=== PATIENT | female | born 1955 | race Caucasian/White ===

== ENCOUNTER 2016-10-02 16:53 | Emergency (ER) | payer OTHER ==
[2016-10-02] MEDS ORDERED: HYDROmorphone 1 MG/ML 1 ML SYRINGE IM STA ×2 (17:11→18:13)
--- NOTE | 2016-10-02 17:34 | ED ---
Fall HPI - General Chief Complaint: Fall Stated Complaint: Fall-Shoulder Pain Time Seen by Provider: 10/02/16 17:02 Source: patient, RN notes reviewed, old records reviewed Mode of arrival: ambulatory - History of Present Illness Initial Comments: Physical 61-year-old female presenting to the emergency Department chief complaint of right shoulder pain. Patient reports that she was walking through her [place] and tripped. She reports that she landed with her right arm outstretched above her head. Patient reports she felt a pop. Patient reports that since then she has not been able to flex or extend her shoulder. She is right-handed. She denies any elbow pain. She denies any wrist or hand pain. She states that she has normal sensation in her fingertips. Patient denies any previous shoulder injuries or fractures. - Related Data Home Medications Medication Instructions Recorded Confirmed Aspirin 325 mg PO DAILY 10/02/16 10/02/16 Cholecalciferol (Vitamin D3) 2,000 unit PO DAILY 10/02/16 10/02/16 [Vitamin D3] Clopidogrel Bisulfate [Plavix] 75 mg PO DAILY 10/02/16 10/02/16 Hydrochlorothiazide 25 mg PO DAILY 10/02/16 10/02/16 INSULIN LISPRO (HumaLOG) [HumaLOG] See Protocol SQ TID 10/02/16 10/02/16 Insulin Glargine [Lantus] 17 - 20 unit SQ HS 10/02/16 10/02/16 Levothyroxine Sodium [Synthroid] 112 mcg PO DAILY 10/02/16 10/02/16 Losartan Potassium [Cozaar] 50 mg PO DAILY 10/02/16 10/02/16 Previous Rx's Medication Instructions Recorded HYDROcodone/APAP 10-325MG [[place] 1 tab PO Q6H PRN #15 tab 10/02/16 10-325] Ondansetron Odt [Zofran Odt] 4 mg PO Q8HR PRN #12 tab 10/02/16 Allergies Allergy/AdvReac Type Severity Reaction Status Date / Time codeine Allergy Swelling Verified 10/02/16 17:44 Review of Systems ROS Statement: Those systems with pertinent positive or pertinent negative responses have been documented in the HPI. ROS Other: All systems not noted in ROS Statement are negative. Past Medical History Past Medical History: Coronary Artery Disease (CAD), Diabetes Mellitus History of Any Multi-Drug Resistant Organisms: None Reported Past Surgical History: Heart Catheterization With Stent Additional Past Surgical History / Comment(s): fatty tumors removed x 2 Past Psychological History: No Psychological Hx Reported Smoking Status: Never smoker Past Alcohol Use History: Occasional Past Drug Use History: None Reported General Exam - General Exam Comments Initial Comments: Well, Since 61-year-old female. No distress. Limitations: no limitations General appearance: alert, in no apparent distress Head exam: Present: atraumatic, normocephalic, normal inspection Eye exam: Present: normal appearance, PERRL, EOMI. Absent: scleral icterus, conjunctival injection, periorbital swelling ENT exam: Present: normal exam, mucous membranes moist Neck exam: Present: normal inspection. Absent: tenderness, meningismus, lymphadenopathy Respiratory exam: Present: normal lung sounds bilaterally. Absent: respiratory distress, wheezes, rales, rhonchi, stridor Cardiovascular Exam: Present: regular rate, normal rhythm, normal heart sounds. Absent: systolic murmur, diastolic murmur, rubs, gallop, clicks GI/Abdominal exam: Present: soft, normal bowel sounds. Absent: distended, tenderness, guarding, rebound, rigid Extremities exam: Present: normal inspection, full ROM, normal capillary refill. Absent: tenderness, pedal edema, joint swelling, calf tenderness Right Shoulder Exam: Present: tenderness, swelling. Absent: normal inspection ( Patient has swelling over the lateral aspect of the possible humerus.), full ROM (Patient has limited shoulder range of motion.), abrasion Upper Arm exam: Absent: normal inspection, full ROM (Patient has decreased flexion and extension. Patient's arm is in a sling.) Elbow exam: Present: normal inspection, full ROM Forearm Wrist exam: Present: normal inspection, full ROM Hand Wrist exam: Present: normal inspection, full ROM Neuro motor exam: Present: wrist extension intact, thumb opposition intact, thumb IP flexion intact, thumb adduction intact, fingers 2-5 abduction intact Neurosensory exam: Present: 2-point discrimination, radial nerve intact, ulnar nerve intact, median nerve intact Vascular: Present: normal capillary refill Back exam: Present: normal inspection Neurological exam: Present: alert, oriented X3, CN II-XII intact Psychiatric exam: Present: normal affect, normal mood Skin exam: Present: warm, dry, intact, normal color. Absent: rash Course Vital Signs 10/02/16 16:54 Temperature 97.6 F Pulse Rate 99 Respiratory 22 Rate Blood Pressure 171/82 O2 Sat by Pulse 100 Oximetry Medical Decision Making - Medical Decision Making Physical 61-year-old female presenting to the emergency Department chief complaint of right shoulder pain. Patient reports that she was walking through her [place] and tripped. She reports that she landed with her right arm outstretched above her head. Patient reports she felt a pop. Patient reports that since then she has not been able to flex or extend her shoulder. Patient' s x-ray shows evidence of a comminuted proximal humerus fracture. No evidence of dislocation. Patient does have full range of motion of the elbow and fingers and hands. Normal sensation and good capillary refill. Patient was placed in a sling. Discussed that she needs to follow-up tomorrow [facility], Dr. Sanchez. Patient will be discharged with pain medication. Discussed keeping her arm propped up on a pillow and taking Motrin and Tylenol as well for pain. Discussed apply ice over the area as well. Patient agrees to treatment plan will comply. Return parameters were discussed. - Radiology Data Radiology results: report reviewed Comminuted humeral neck fracture. No significant displacement. There is a large 3 x 2 cm chip fracture of the greater tuberosity. Scapula appears intact. There is no dislocation. Disposition Clinical Impression: Comminuted right humeral fracture Disposition: HOME SELF-CARE Condition: Good Instructions: Arm Fracture in Adults (ED), Proximal Humerus Fracture (ED) Additional Instructions: Patient advised to follow-up with orthopedic physician tomorrow. Patient advised to keep arm resting on pillows. Sleep with a recliner chair and propped up on pillows. Take pain medication as prescribed. Apply ice over the area as well. Return to the emergency department if any alarming signs or symptoms occur. Prescriptions: HYDROcodone/APAP 10-325MG [[place] 10-325] 1 tab PO Q6H PRN #15 tab PRN Reason: Pain Ondansetron Odt [Zofran Odt] 4 mg PO Q8HR PRN #12 tab PRN Reason: Nausea Referrals: Vamsi Jo DO [Primary Care Provider] - 1-2 days Minh Sanchez MD [Medical Doctor] - 1-2 days Time of Disposition: 18:17
--- NOTE | 2016-10-02 18:05 | XR ---
EXAMINATION TYPE: XR shoulder complete RT DATE OF EXAM: 10/02/2016 COMPARISON: NONE HISTORY: Pain after a fall TECHNIQUE: 3 views FINDINGS: There is a comminuted fracture of the neck of the right humerus. There is no dislocation. T here is a large 3 x 2 cm Chip fracture of the greater tuberosity. Scapula appears intact. IMPRESSION: Comminuted humeral neck fracture. No significant displacement.
[2016-10-02 18:46] VITALS: BP 123/60; PULSE 86; RESP 18; TEMP 97.1
== END 2016-10-02 18:47 | disposition home or self-care (01) ==
LOC: EC 16:53
DX: S42.211A Unspecified displaced fracture of surgical neck of right humerus, initial encounter for closed fracture (principal); E11.9 Type 2 diabetes mellitus without complications; I25.10 Atherosclerotic heart disease of native coronary artery without angina pectoris; Z79.02 Long term (current) use of antithrombotics/antiplatelets; Z79.4 Long term (current) use of insulin; Z79.899 Other long term (current) drug therapy; Z79.82 Long term (current) use of aspirin; Z88.5 Allergy status to narcotic agent; Z95.5 Presence of coronary angioplasty implant and graft; W01.0XXA Fall on same level from slipping, tripping and stumbling without subsequent striking against object, initial encounter; Y93.01 Activity, walking, marching and hiking
CPT/HCPCS: 73030; 99284; 96372 ×2; J1170

== ENCOUNTER → 2017-10-18 | Outpatient (CLI) | payer OTHER ==
--- NOTE | 2017-10-19 16:45 | MR ---
EXAMINATION TYPE: MR knee RT wo con DATE OF EXAM: 10/18/2017 COMPARISON: None HISTORY: Outer right knee pain for one month. Twisting injury after fall. TECHNIQUE: Multiplanar, multisequence imaging of the right knee is performed without IV contrast. FINDINGS: MEDIAL MENISCUS: There is abnormal signal within the posterior horn of the left meniscus without exte nt into the intra-articular surface most compatible with myxoid degeneration of the meniscus. LATERAL MENISCUS: Anterior and posterior horns are intact without tear. CRUCIATE LIGAMENTS: The anterior and posterior cruciate ligaments are intact and unremarkable. COLLATERAL LIGAMENTS: The medial collateral ligament and lateral collateral ligament complex are inta ct and unremarkable. EXTENSOR MECHANISM: Visualized quadriceps and patellar tendons are intact. EFFUSION: There is a small complex suprapatellar joint effusion compatible with synovitis. No fat fl uid level is seen to suggest lipohemarthrosis. POPLITEAL CYST: Trace fluid between the medial head of the gastrocnemius and semimembranosus. TRICOMPARTMENT SPACES: No significant joint space narrowing. Small marginal osteophytes are seen of t he medial and lateral compartments. CARTILAGE: There is a partial thickness cartilaginous defect of the medial surface of the lateral fem oral condyle measuring 8 mm. No focal full-thickness or partial-thickness chondral defect is seen wit hin the medial compartment are within the patellofemoral compartment, however there is signal heterog eneity of the lateral facet of the patella. BONE MARROW SIGNAL: There is focal PD hyperintense and T1 hypointense bone marrow edema of the hot mill worker ior lateral tibial plateau without associated focal fracture line or subchondral collapse. Fluid is n oted deep to the anterior aspect of the medial meniscus but elongated along the tibial plateau. This is presumed to represent some of the joint effusion. Probable small extraosseous ganglion is noted of the medial femoral condyle anteriorly. OTHER: There is a mixed intensity 1.9 x 2.3 x 1.4 cm fluid collection at the lateral aspect of the p opliteus muscle likely representing an intramuscular hematoma. Fluid is seen surrounding this with in tramuscular high signal from muscular strain. IMPRESSION: 1. Abnormal bone marrow signal within the posterior lateral tibial plateau indicative of a large area of bone marrow edema without subchondral fracture identified or subchondral collapse. No hemarthrosi s is seen although there is a slightly complex small suprapatellar joint effusion with synovitis. 2. 2.3 cm complex fluid collection at the lateral aspect of the popliteus muscle likely representing an intramuscular hematoma with intramuscular popliteal strain. 3. No meniscal tear is identified however there is fluid seen deep to the medial meniscus. If there i s focal pain or concern for occult nondisplaced tear and arthroscopy could be performed.
== END | disposition home or self-care (01) ==
LOC: RADMRIMAIN 08:47
PROVIDERS: ATTEND Orthopaedic Surgery
DX: M25.461 Effusion, right knee (principal); M65.861 Other synovitis and tenosynovitis, right lower leg

== ENCOUNTER → 2018-10-19 | Outpatient (CLI) | payer OTHER ==
[2018-10-19 16:09] LABS: Albumin 4.4 g/dL (3.80-4.90); Albumin/Globulin Ratio 2.1 (1.60-3.17); Bilirubin, Conjugated 0.3 mg/dL (0.20-0.40); Bilirubin,Unconjugated 0.6 mg/dL; Globulin 2.1 g/dL (1.6-3.3); LDL Cholesterol,Calculated 76.8 mg/dL (0.0-131.0); Total Bilirubin 0.9 mg/dL (0.2-1.2); Total Protein 6.5 g/dL (6.2-8.2); VLDL Calculation 11.2 mg/dL (5.00-40.00)
== END | disposition home or self-care (01) ==
LOC: LABWHC1 11:10
PROVIDERS: ATTEND Internal Medicine Cardiovascular Disease
DX: I25.10 Atherosclerotic heart disease of native coronary artery without angina pectoris (principal)
CPT/HCPCS: 36415; 80061; 80076

== ENCOUNTER → 2021-12-06 | Outpatient (CLI) | payer MEDICARE ==
[2021-12-06 12:15] LABS: INR 0.9 (<1.2); Partial Thromboplastin Time 23.6 sec (22.0-30.0); Prothrombin Time 9.7 sec (9.0-12.0)
[2021-12-06 18:20] LABS: Basophils # (A) 0.03 X 10*3/uL (0.00-0.10); Basophils % (A) 0.5 %; Eosinophils # (A) 0.09 X 10*3/uL (0.04-0.35); Eosinophils % (A) 1.5 %; HCT 38.1 % (37.2-46.3); HGB 12.3 g/dL (12.0-15.0); Immature Grans, Automated 0.8 %; Lymphocytes # (A) 1.17 X 10*3/uL (0.90-5.00); Lymphocytes % (A) 19.6 %; MCH 29.7 pg (27.0-32.0); MCHC 32.3 g/dL (32.0-37.0); Mean Platelet Volume 12.2 fL (9.5-12.2); Monocytes # (A) 0.39 X 10*3/uL (0.20-1.00); Monocytes % (A) 6.5 %; NRBC Per 100 WBC 0 /100 WBCS (0.0-0.0); Neutrophils # (A) 4.25 X 10*3/uL (1.80-7.70); Neutrophils % (A) 71.1 %; Platelet Count 244 X 10*3/uL (140-440); RBC 4.14 X 10*6/uL (4.10-5.20); RDW 12.7 % (11.5-14.5); WBC 5.98 X 10*3/uL (4.50-10.00)
[2021-12-06 18:55] LABS: Albumin 4.7 g/dL (3.8-4.9); Albumin/Globulin Ratio 1.81 (1.60-3.17); Anion Gap 11.6 mmol/L (10.00-18.00); BUN/Creat Ratio 32.9 Ratio (12.00-20.00); Blood Urea Nitrogen 32.9 mg/dL (9.0-27.0); Calcium 10.1 mg/dL (8.7-10.3); Carbon Dioxide 26.4 mmol/L (20.0-27.5); Globulin 2.6 g/dL (1.6-3.3); Non-African American GFR(CKD) 58.7 (60.0-200.0); Potassium 4.8 mmol/L (3.5-5.5); Total Bilirubin 0.4 mg/dL (0.30-1.20); Total Protein 7.3 g/dL (6.2-8.2)
[2021-12-06 19:16] LABS: Appearance,Urine Clear (Clear); Bilirubin,Urine Negative (Negative); Blood,Urine Negative (Negative); Color,Urine Yellow (Yellow); Ketones,Urine Negative (Negative); Nitrite,Urine Negative (Negative); PH, Urine 5.5 (5.0-8.0); Specific Gravity,Urine 1.023 (1.001-1.030)
[2021-12-06 19:26] LABS: Bacteria,Urine None Seen /HPF (None Seen)
== END | disposition home or self-care (01) ==
LOC: LABPAT 10:41
PROVIDERS: ATTEND Orthopaedic Surgery
DX: Z01.812 Encounter for preprocedural laboratory examination (principal); M16.12 Unilateral primary osteoarthritis, left hip
CPT/HCPCS: 80053; 81001; 85025; 85610; 85730; 87070

== ENCOUNTER 2021-12-17 08:37 | Inpatient (IN) | payer MEDICARE, OTHER ==
[2021-12-15 15:40] VITALS: BMI 27.9
[~2021-12-17 08:37] MED LIST: ACETAMINOPHEN TAB 500 MG TAB PO PRN; DEXAMETHASONE SOD PHOSPHATE 10 MG/ML 1 ML VIAL IV PRN; DOCUSATE 100 MG CAP PO PRN; FAMOTIDINE 20 MG/2 ML VIAL IVP PRN; KETOROLAC 15 MG/ML 1 ML VIAL IVP PRN; MIDAZOLAM 2 MG/2 ML VIAL IV PRN; ONDANSETRON 4 MG/2 ML VIAL IVP PRN; ROPIVACAINE/EPI/CLONIDINE/KET 50 ML SYRINGE MISCELLANE PRN; TRANEXAMIC ACID IN NACL,ISO-OS 1,000 MG in SALINE 1 100ML.BAG IVPB PRN; oxyCODONE ER 10 MG TAB.ER.12H PO PRN
[2021-12-17] MEDS: LACTATED RINGERS 1,000 ML IV SCH (09:20)
[2021-12-17 09:48] LABS: Glucose,Whole Blood 370 mg/dL (70-110)
[2021-12-17] MEDS ORDERED: INSULIN ASPART (NovoLOG) 100 UNIT/ML VIAL SQ ONE ×2 (09:55→13:50)
[2021-12-17] MEDS ORDERED: fentaNYL (PF) 50 MCG/ML 2 ML AMP IVP ONE (09:56)
[2021-12-17] MEDS ORDERED: MIDAZOLAM 2 MG/2 ML VIAL IVP ONE ×3 (09:56→15:16)
[2021-12-17] MEDS ORDERED: fentaNYL (PF) 50 MCG/ML 2 ML AMP ONE ×2 (10:43→15:59)
[2021-12-17] MEDS ORDERED: ROCURONIUM 10 MG/ML (5 ML VIAL) IV ONE (10:43)
[2021-12-17] MEDS ORDERED: MIDAZOLAM 2 MG/2 ML VIAL ONE (10:43)
[2021-12-17] MEDS ORDERED: SUCCINYLCHOLINE CHLORIDE 200 MG/10 ML VIAL IV ONE (10:43)
[2021-12-17] MEDS ORDERED: LIDOCAINE 2% INJ 20 MG/ML (2 ML VIAL) ONE (10:43)
[2021-12-17] MEDS ORDERED: ePHEDrine 50 MG/ML 1 ML VIAL ONE (10:43)
[2021-12-17] MEDS ORDERED: TRANEXAMIC ACID IN NACL,ISO-OS 1,000 MG/100 ML BAG ONE (10:43)
[2021-12-17] MEDS ORDERED: NEOSTIGMINE 1 MG/ML 10 ML VIAL ONE (10:43)
[2021-12-17] MEDS ORDERED: PROPOFOL 10 MG/ML 20 ML VIAL IV ONE (10:43)
[2021-12-17] MEDS ORDERED: GLYCOPYRROLATE 0.2 MG/ML 2 ML VIAL ONE (10:43)
--- NOTE | 2021-12-17 11:16 | P.ANPRN ---
Procedure Note - Anesthesia - Nerve Block Performed Left Erector Spinae Single Time Out Performed: Yes ([id number]) Date of Procedure: 12/17/21 Procedure Start Time: 09:56 Procedure Stop Time: 10:02 Location of Patient: PreOp Indication: Acute Post-Operative Pain, Requested by Surgeon Specifically requested for management of pain by DrJosselin: Minh Sanchez Sedation Type: Sedate with meaningful contact maintained Preparation: Sterile Prep Position: Supine Catheter: None Needle Types: Pajunk Needle Gauge: 21 Ultrasound used to visualize needle placement: Yes Ultrasound used to observe medication spread: Yes Injectate: 0.5% Ropivacaine (see comment for volume) (30cc) Blood Aspirated: No Pain Paresthesia on Injection Noted: No Resistance on Injection: Normal Image Stored and Saved: Yes Events: Uneventful and Well Tolerated
[2021-12-17] MEDS ORDERED: SODIUM CHLORIDE 0.9% 200 ML with EPINEPHrine 2 MG IV ONE ×2 (11:49)
[2021-12-17] MEDS ORDERED: LACTATED RINGERS 1,000 ML IV ONE (11:59)
[2021-12-17 12:23] LABS: Glucose,Whole Blood 278 mg/dL (70-110)
[2021-12-17] MEDS ORDERED: hydrOXYzine pamoate 25 MG CAP PO PRN (13:30)
[2021-12-17] MEDS ORDERED: HYDROmorphone 0.5 MG/0.5 ML SYRINGE IVP PRN ×2 (13:30)
[2021-12-17] MEDS ORDERED: NALOXONE 0.4 MG/ML 1 ML VIAL IV PRN (13:30)
[2021-12-17] MEDS ORDERED: diphenhydrAMINE 50 MG/ML 1 ML VIAL IVP ONE (13:35)
--- NOTE | 2021-12-17 13:41 | P.OP ---
Date of Procedure: 12/17/21 Preoperative Diagnosis: 1. 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 Osteoporosis with prior fragility fracture 3. Osteopenia in the left proximal femur with a JEANNE C canal Postoperative Diagnosis: Same Procedure(s) Performed: Left direct anterior total hip arthroplasty Implants: 1. Hugo Trident II Acetabular Cup, Size #46 2. Ord Accolade C Size # 5 Femoral Stem, High Offset 3. Dual Mobility OD 36mm, 22.2ID mm, +0 neck Anesthesia: MOISE Surgeon: Minh Sanchez Media Theorist And Author Of #1: Krystal Cole Estimated Blood Loss (ml): 100 IV fluids (ml): 1,100 Pathology: none sent Condition: stable Disposition: PACU Indications for Procedure: The patient is a very pleasant 66-year-old female who developed relatively acute onset left hip and groin pain. She had x-rays and an MRI which showed a subchondral fracture with collapse of the femoral head. She had incapacitating hip pain and an inability to ambulate I recommended a total hip arthroplasty. The patient had a prior proximal humerus fragility fracture and had significant osteopenia on her plain films that I recommended using cemented femoral fixation to lower her risk of postoperative fracture. I had a long discussion with the patient in the office on the potential risks and complications of an elective total hip replacement through a direct anterior approach. Risks discussed include, but are certainly not limited to, risks from anesthesia, superficial infection requiring local wound care or antibiotics, deep chasidy-prosthetic joint infection and the treatment required to eradicate infection, intraoperative fracture, postoperative periprosthetic fracture, damage to local blood vessels or nerves particularly the lateral femoral cutaneous nerve, delayed wound healing requiring local wound care or possibly surgical debridement, hip dislocation, leg length discrepancy, soft tissue irritation around the total hip implant such as iliopsoas tendinitis or trochanteric bursitis, wear and osteolysis from the implants, squeaking or audible noises, groin pain, thigh pain, heterotopic ossification, stiffness, aseptic loosening of the implants, dissatisfaction with surgical outcome, need for revision surgery, DVT, PE, swelling of the operative extremity, acute coronary event, stroke, failure to thrive, and possibly loss of life or limb. The patient understands that while these are the most common complications after an elective hip replacement there are certainly other less common complications possible. They were given ample time to ask questions regarding the potential complications of a hip replacement. Following our discussion the patient provided their verbal and written consent to go forward with an elective total hip replacement. Operative Findings: Collapse of the femoral head consistent with either avascular necrosis or subchondral fracture. Osteopenia in the proximal femur Description of Procedure: The patient was identified in the preoperative holding area and the correct hip was marked with my initials. I reviewed the procedure and consent with the patient. All of their questions were answered. The patient was then brought back into the operating room by anesthesia. While on the [facility] anesthesia was administered by the anesthesia team. Preoperative antibiotics and tranexamic acid were also given. After the patient was under anesthesia I examined their ankles to determine their preoperative leg length discrepancy. The skin over the anterior aspect of the hip was shaved to remove hair over the site of planned incision. Both feet and ankles were padded with webril and boots for the [place] were applied. The patient was then carefully transferred onto the [place] table. A perineal post was immediately placed. The arms were placed on arm holders and were well-padded. Both boots were secured to the spars on the [place] table. The patient was positioned so that the pelvis was centered over the post. Nonsterile drapes were applied. A timeout was performed identifying the correct patient, operative extremity, and procedure. At this point fluoroscopy was brought in to take preoperative images of the pelvis and operative hip. Using the standing AP pelvis from the office as a template, a comparable image was obtained with fluoroscopy. A metallic bar was used to create a bi-ischial line for use as a reference to leg length adjustments during the procedure. Global offset was also measured on both the operative and nonoperative leg. Fluoroscopy was then brought out and a pre-scrub using a chlorhexidine scrub brush was performed. The operative limb was then prepped and draped in the standard sterile fashion. An anterior longitudinal incision was made lateral and distal to the ASIS. The skin and subcutaneous tissues were incised sharply. The underlying tensor fascia was identified and incised in its midportion. The fascia was dissected free from the underlying muscle and the muscle belly was retracted. A blunt tipped cobra retractor was placed over the superior neck under the muscle fibers of the gluteus minimus. The deep enveloping fascia of the tensor was incised. The anterior leash of vessels were then identified and cauterized. The fascia between the rectus and the capsule was then incised and the pre-capsular fat was excised. A second Cobra was placed inferior to the neck. The interval between the rectus and iliocapsularis and the hip capsule was developed and a retractor was placed carefully over the anterior rim of the acetabulum. A T-shaped anterior capsulotomy was performed. The superior capsular leaflet was left in place in the inferior capsular flap was excised. The Cobra retractors were placed intracapsularly. We then made a femoral neck osteotomy according to preoperative and intraoperative templating and confirmed the level of the osteotomy using fluoroscopic imaging. The femoral head was removed, passed off to the back table, and sized. The superior capsular flap was excised. Retractors were placed circumferentially exposing the acetabulum. We then circumferentially debrided the acetabulum free of labrum and osteophytes. The pulvinar was removed to fully visualize the cotyloid fossa. We then sequentially reamed to achieve peripheral fit and excellent bleeding subchondral bone. The socket was thoroughly irrigated. The acetabular component was impacted into the appropriate position using fluoroscopy to guide version, inclination, and depth of insertion taking care to have a comparable image of the AP pelvis to the standing image taken in the office. An excellent press-fit was achieved and final position was confirmed using fluoroscopy. The press fit was augmented with bony cancellus dome screws. The liner was then impacted into the socket. Attention was then turned to the femur. The remnant dorsal lateral capsule was excised. The short external rotators were visible and protected. A bone hook was used to confirm appropriate translation of the trochanter away from the acetabulum. The leg was then extended and adducted and the bone hook was used to elevate the femur for broaching. On inspection of the patient's proximal femur, they appeared to have poor bone quality so I elected to proceed with cemented fixation of the femoral component. A box osteotome and blunt tipped canal sound was then utilized to gain access to the femoral canal. We then sequentially broached the femur in appropriate anteversion until torsional stability was achieved and the implant was felt to have reached the appropriate size to allow trialing. The neck cut was brought flush to the trial broach with a calcar planar. A trial neck and head were then placed onto the broach and the hip was atraumatically reduced under direct visualization. External rotation to 90 was performed to assess stability. Fluoroscopy was brought in. An AP and lateral fluoroscopic image of the proximal femur was obtained to assess position and fill of the trial broach. An AP of the pelvis was then obtained and matched to the preoperative image taken. A bi-ischial bar was then placed and measurements were taken to assess changes in length and offset. The hip was then carefully dislocated, the proximal femur was exposed, and the trial implants were removed. The proximal femur was then prepared for cementing. The canal was thoroughly irrigated with pulsatile lavage to remove blood and marrow contents. A cement restrictor was placed to a depth just distal to the tip of the final implant. Epinephrine-soaked gauze was then packed into the proximal femur. 2 bags of cement were then mixed using a centrifuge and placed into a cement gun. Anesthesia was notified that cementing was about to commence to make sure the patient was appropriately ventilated and hydrated. Once the cement had reached appropriate consistency, the cement gun was used to fill the canal in a retrograde fashion starting at the restrictor. Cement was then pressurized into the canal with a blue tipped nutrition associate. The stem was then carefully introduced into the cement taking care to guide the implant into appro priate version. The stem was held in position until the cement had fully set. All extra cement was removed while the cement was hardening. The trunnion was cleansed and the final head was tapped into place to engage the Kaba taper. The acetabulum was irrigated and visualized to be free of debris. The hip was carefully reduced. Stability was checked clinically with external rotation to 90 and there was no evidence of instability. Final fluoroscopic images were taken. The wound was then thoroughly irrigated and soaked with a dilute Betadine rinse for 3 minutes. 3 L of sterile saline was irrigated through the wound using pulsatile lavage. Local anesthetic cocktail was injected into the soft tissues around the surgical field. The wound was then closed in layers. A sterile dressing was placed over the surgical incision. The drapes were taken down and the patient was carefully transferred off of the [place] table. Following removal of the boots the leg lengths felt acceptable. The patient was then taken to recovery room having tolerated the procedure well. Krystal Cole PA-C was required as a skilled radiology physician assistant for patient positioning, surgical exposure, retraction, placement of implants, and closure of the surgical wound. PLAN: The patient can weight-bear as tolerated on the operative extremity. 2 doses of postoperative antibiotics. DVT prophylaxis with aspirin 81 mg twice a day based on preoperative risk stratification for 1 week. After 1 week she can resume her Plavix and can decrease her aspirin to 81 mg daily for an additional 3 weeks. Physical therapy for gait training.
[2021-12-17 13:53] LABS: Glucose,Whole Blood 315 mg/dL (70-110)
[2021-12-17] MEDS: ONDANSETRON 4 MG/2 ML VIAL IVP PRN (14:00)
[2021-12-17 14:25] LABS: Glucose,Whole Blood 290 mg/dL (70-110)
[2021-12-17] MEDS ORDERED: SODIUM CHLORIDE 0.9% 1,000 ML IV ONE ×4 (14:45→16:12)
[2021-12-17] MEDS ORDERED: ASPIRIN 81 MG PO STA ×3 (14:52→15:00)
[2021-12-17] MEDS ORDERED: ASPIRIN 325 MG TAB PO STA (14:56)
[2021-12-17 14:57] LABS: Glucose,Whole Blood 125 mg/dL (70-110)
[2021-12-17] MEDS ORDERED: ATORVASTATIN 80 MG TAB PO STA (14:57)
[2021-12-17] MEDS ORDERED: HEPARIN SODIUM 1,000 UN/ML (10ML VL) IVP ONE ×2 (14:59→15:15)
[2021-12-17 15:02] LABS: Basophils % (A) 0 %; Eosinophils % (A) 0 %; HCT 23.6 % (34.0-46.0); HGB 7.6 gm/dL (11.4-16.0); Lymphocytes # (A) 0.3 k/uL (1.0-4.8); Lymphocytes % (A) 3 %; MCH 30.2 pg (25.0-35.0); MCHC 32.2 g/dL (31.0-37.0); MCV 93.7 fL (80.0-100.0); Mean Platelet Volume 8.9; Monocytes # (A) 0.2 k/uL (0-1.0); Monocytes % (A) 2 %; Neutrophils # (A) 10.1 k/uL (1.3-7.7); Neutrophils % (A) 95 %; Platelet Count 152 k/uL (150-450); RBC 2.52 m/uL (3.80-5.40); WBC 10.6 k/uL (3.8-10.6)
[2021-12-17] MEDS ORDERED: ASPIRIN 81 MG PO ONE (15:10)
[2021-12-17] MEDS ORDERED: LIDOCAINE 1% INJ 10MG/ML (30 ML VIAL-PF) SQ ONE (15:12)
[2021-12-17] MEDS ORDERED: HYDROmorphone 0.5 MG/0.5 ML SYRINGE IVP ONE (15:15)
[2021-12-17 15:17] LABS: African American GFR (CKD) >90 (>60 ml/min/1.73 sqM); Anion Gap 6 mmol/L; Blood Urea Nitrogen 18 mg/dL (7-17); Carbon Dioxide 17 mmol/L (22-30); Chloride 116 mmol/L (98-107); Glucose 176 mg/dL (74-99); Non-African American GFR(CKD) >90 (>60 ml/min/1.73 sqM); Sodium 139 mmol/L (137-145)
[2021-12-17] MEDS ORDERED: VERAPAMIL SYRINGE (5 MG/10 ML) INTRAARTER ONE (15:17)
--- NOTE | 2021-12-17 15:24 | P.CRDCN ---
History of Present Illness History of present illness: HISTORY OF PRESENTING ILLNESS This is a pleasant 66-year-old female past medical history significant for coronary artery disease status post PCI in 2007, hypothyroidism, hypertension, dyslipidemia, type 1 diabetes. She follows with Dr. Shaggy Hernandez. We have been asked to see in consultation for chest pain and EKG changes post op. Patient presented to the hospital for planned elective left anterior total hip arthroplasty. Postoperatively patient was taken to recovery. She had m idsternal left-sided chest pain. Associated nausea. EKG was performed which revealed ST elevation in inferior and lateral leads. No significant ST depression in V2 and V3. Secondary to EKG abnormalities cardiology was notified. Patient was alert, drowsy post op. Hypotensive but BP improved 102/56 with IV fluids. She continued to have active chest pain and nausea. Patient was taken urgently to cardiac laborer bituminous paving. Labs not available at the time of this dictation. Patient denies any history of [place], stroke. She underwent PCI in 2007 she states secondary to abnormal stress test. REVIEW OF SYSTEMS At the time of my exam: CONSTITUTIONAL: Denies fever or chills. CARDIOVASCULAR: +Denies chest pain, Denies shortness of breath, orthopnea, PND or palpitations. RESPIRATORY: Denies cough. GASTROINTESTINAL: +nausea Denies abdominal pain, diarrhea, constipation, MUSCULOSKELETAL: Denies myalgias. NEUROLOGIC: Denies numbness, tingling, headache or weakness. PHYSICAL EXAMINATION Vitals reviewed CONSTITUTIONAL: No apparent distress. HEENT: Head is normocephalic. Pupils are equal, round. Sclerae anicteric. Mucous membranes of the mouth are moist. CHEST EXAMINATION: Lungs are clear to auscultation. HEART EXAMINATION: Regular rate and rhythm. S1, S2 heard. EXTREMITIES: 2+ peripheral pulses, no lower extremity edema and no calf tenderness. NEUROLOGIC EXAMINATION: Patient is awake, alert and oriented x3. ASSESSMENT Inferiorlateral STEMI Status post left anterior total hip arthroplasty on 12/17 Coronary artery disease status post PCI in 2007 Hypothyroidism Hypertension Dyslipidemia PLAN Plan for immediate cardiac catheterization with Dr. Archer. Discussed with anesthesia and surgeon Family updated I have discussed the risks, benefits and alternative therapies for the above-mentioned procedure and for both sedation/analgesia as well as necessary blood product administration, if indicated, as they pertain to this patient. The patient has indicated understanding and acceptance of the risks and procedures discussed. Questions have been answered appropriately and she is agreeable to move forward with the above-stated procedure. Further recommendations based on clinical course Nurse practitioner note has been reviewed by physician. Signing provider agrees with the documented findings, assessment, and plan of care. Past Medical History Past Medical History: Coronary Artery Disease (CAD), Diabetes Mellitus, Hyperlipidemia, Hypertension, Osteoarthritis (OA) History of Any Multi-Drug Resistant Organisms: None Reported Past Surgical History: Heart Catheterization With Stent Additional Past Surgical History / Comment(s): fatty tumors removed x 2. DENTAL SURGERY Past Anesthesia/Blood Transfusion Reactions: Motion Sickness, Postoperative Nausea & Vomiting (PONV) Date of Last Stent Placement:: 2007 Smoking Status: Never smoker - Past Family History Father Family Medical History: Cancer Medications and Allergies Home Medications Medication Instructions Recorded Confirmed Type Cholecalciferol (Vitamin D3) 2,000 unit PO DAILY 10/02/16 12/17/21 History [Vitamin D3] Clopidogrel Bisulfate [Plavix] 75 mg PO DAILY 10/02/16 12/17/21 History HYDROcodone/APAP 10-325MG [[place] 1 tab PO Q6H PRN #15 tab 10/02/16 12/17/21 Rx 10-325] INSULIN LISPRO (HumaLOG) [HumaLOG] 4 units SQ BID 10/02/16 12/17/21 History Insulin Glargine [Lantus] 15 unit SQ HS 10/02/16 12/17/21 History Levothyroxine Sodium [Synthroid] 112 mcg PO DAILY 10/02/16 12/17/21 History Losartan Potassium [Cozaar] 50 mg PO DAILY 10/02/16 12/17/21 History hydroCHLOROthiazide 25 mg PO DAILY 10/02/16 12/17/21 History Aspirin EC [Ecotrin Low Dose] 81 mg PO DAILY 12/15/21 12/17/21 History Biotin [Biotin Disolve] 5,000 mcg PO DAILY 12/15/21 12/17/21 History Cyanocobalamin (Vitamin B-12) 2,500 mcg PO DAILY 12/15/21 12/17/21 History [Vitamin B-12] INSULIN LISPRO (humaLOG) [HumaLOG] 6 unit SQ AC-SUPPER 12/15/21 12/17/21 History Ibuprofen [Motrin] 800 mg PO Q8H PRN 12/15/21 12/17/21 History Pravastatin Sodium [Pravachol] 40 mg PO HS 12/15/21 12/17/21 History Aspirin 81 mg PO BID 30 Days #60 tab 12/17/21 Rx Diclofenac Sodium [Voltaren] 75 mg PO BID 30 Days #60 tab 12/17/21 Rx Docusate [Colace] 100 mg PO BID #60 capsule 12/17/21 Rx HYDROcodone/APAP 7.5-325MG [[place] 1 - 2 tab PO Q6HR PRN 7 Days #32 12/17/21 Rx 7.5-325] tab Omeprazole 40 mg PO DAILY 30 Days #30 cap 12/17/21 Rx Allergies Allergy/AdvReac Type Severity Reaction Status Date / Time codeine Allergy Swelling Verified 12/17/21 09:13 Physical Exam Vitals: Vital Signs Temp Pulse Pulse Resp BP BP Pulse Ox 12/17/21 13:55 72 16 119/58 99 12/17/21 13:38 75 16 117/59 96 12/17/21 13:22 98.3 F 89 16 135/65 99 12/17/21 10:15 77 18 132/70 100 12/17/21 09:26 97.6 F 82 18 163/67 99 Intake and Output 12/17/21 12/17/21 12/17/21 06:59 14:59 22:59 Intake Total 1950 Output Total 100 Balance 1850 Intake: IV 1950 Output: Estimated Blood Loss 100 Other: Weight 72.6 kg Results 12/17/21 14:53 CBC 12/17/21 Range/Units 14:53 WBC 10.6 (3.8-10.6) k/uL RBC 2.52 L (3.80-5.40) m/uL Hgb 7.6 L (11.4-16.0) gm/dL Hct 23.6 L (34.0-46.0) % Plt Count 152 (150-450) k/uL Current Medications Generic Name Dose Route Start Last Admin Trade Name Freq PRN Reason Stop Dose Admin Hydrocodone Bitart/Acetaminophen 1 each 12/17/21 13:30 Hydrocodone/Apap 5-325mg 1 Each Tab PO 01/16/22 13:31 Q6HR PRN Pain Scale 1 to 5 Hydrocodone Bitart/Acetaminophen 2 each 12/17/21 13:30 Hydrocodone/Apap 5-325mg 1 Each Tab PO 01/16/22 13:31 Q6HR PRN Pain Scale 6 to 10 Aspirin 81 mg 12/17/21 21:00 Aspirin 81 Mg PO 01/16/22 21:01 BID OSCAR Hydromorphone HCl 0.125 mg 12/17/21 13:30 Hydromorphone 0.5 Mg/0.5 Ml Syringe IVP 01/16/22 13:31 Q3HR PRN Pain Scale 1 to 3 Hydromorphone HCl 0.5 mg 12/17/21 13:30 Hydromorphone 0.5 Mg/0.5 Ml Syringe IVP 01/16/22 13:31 Q3HR PRN Pain Scale 7 to 10 Hydromorphone HCl 0.25 mg 12/17/21 13:30 Hydromorphone 0.5 Mg/0.5 Ml Syringe IVP 01/16/22 13:31 Q3HR PRN Pain Scale 4 to 6 Hydroxyzine Pamoate 25 mg 12/17/21 13:30 Hydroxyzine Pamoate 25 Mg Cap PO 01/16/22 13:31 Q4HR PRN Nausea, Anxiety, Pain Control Tranexamic Acid/Sodium 100 mls @ 200 mls/hr 12/17/21 06:00 Chloride 1,000 mg/ IV Solution IVPB 12/17/21 23:00 ONCE PRN Pre-Op Lactated Ringer's 1,000 mls @ 20 mls/hr 12/17/21 05:37 12/17/21 09:20 Lactated Ringers IV 01/16/22 05:38 1,000 mls .Q24H OSCAR Administration Cefazolin Sodium 2 gm/ Sodium 50 mls @ 100 mls/hr 12/17/21 21:00 Chloride IVPB 12/18/21 05:29 Q8H [facility] Protocol Midazolam HCl 2 mg 12/17/21 05:37 Midazolam 2 Mg/2 Ml Vial IV 12/17/21 23:00 ONCE PRN Pre-Op Anxiety Naloxone HCl 0.2 mg 12/17/21 13:30 Naloxone 0.4 Mg/Ml 1 Ml Vial IV 01/16/22 13:31 Q2M PRN Opioid Reversal Ondansetron HCl 4 mg 12/17/21 13:30 12/17/21 14:00 Ondansetron 4 Mg/2 Ml Vial IVP 01/16/22 13:31 4 mg DAILY PRN Administration Nausea And Vomiting Senna/Docusate Sodium 2 each 12/17/21 21:00 Sennosides-Docusate Sodium 1 Each Tab PO 01/16/22 21:01 [facility] Intake and Output 12/17/21 12/17/21 12/17/21 06:59 14:59 22:59 Intake Total 1950 Output Total 100 Balance 185 Intake: IV 1950 Output: Estimated Blood Loss 100 Other: Weight 72.6 kg Patient Weight 12/18/21 06:59 Weight 72.6 kg 12/17/21 14:53
[2021-12-17 15:28] LABS: Calcium 5.2 mg/dL (8.4-10.2)
[2021-12-17] MEDS ORDERED: POTASSIUM CHLORIDE ER 20 MEQ TAB.ER PO STA (15:42)
[2021-12-17] MEDS ORDERED: MIDAZOLAM 2 MG/2 ML VIAL IV ONE (16:10)
[2021-12-17] MEDS ORDERED: fentaNYL (PF) 50 MCG/ML 2 ML AMP IV ONE (16:10)
[2021-12-17] MEDS ORDERED: NOREPINEPHRINE 4 MG in SODIUM CHLORIDE 0.9% 250 ML IV ONE (16:11)
[2021-12-17 16:19] LABS: Glucose,Whole Blood 350 mg/dL (70-110)
[2021-12-17] MEDS ORDERED: HEPARIN SODIUM 1,000 UN/ML (10ML VL) IV ONE ×2 (16:34→16:56)
[2021-12-17] MEDS ORDERED: IOPAMIDOL-370 125ML BTL INJ ONE (16:35)
[2021-12-17] MEDS ORDERED: IOPAMIDOL-370 100ML BTL INJ ONE (16:36)
[2021-12-17 16:38] LABS: Glucose,Whole Blood 407 mg/dL (70-110)
[2021-12-17] MEDS: PHENYLEPHRINE-0.9% NACL SYG 1,000 MCG/10 ML SYRINGE IV ONE ×2 (16:41→16:54)
[2021-12-17 16:42] LABS: HCT 27.6 % (34.0-46.0); HGB 8.7 gm/dL (11.4-16.0); Hypochromasia Slight; MCH 29.9 pg (25.0-35.0); MCHC 31.5 g/dL (31.0-37.0); Mean Platelet Volume 8.7; Platelet Count 182 k/uL (150-450); RDW 12.7 % (11.5-15.5); WBC 15.3 k/uL (3.8-10.6)
[2021-12-17] MEDS ORDERED: CLOPIDOGREL 75 MG TAB PO ONE (17:05)
[2021-12-17 17:39] LABS: African American GFR (CKD) >90 (>60 ml/min/1.73 sqM); Anion Gap 13 mmol/L; Blood Urea Nitrogen 23 mg/dL (7-17); Calcium 6.8 mg/dL (8.4-10.2); Carbon Dioxide 13 mmol/L (22-30); Chloride 108 mmol/L (98-107); Glucose 370 mg/dL (74-99); Magnesium 1.3 mg/dL (1.6-2.3); Non-African American GFR(CKD) >90 (>60 ml/min/1.73 sqM); Potassium 3.5 mmol/L (3.5-5.1); Sodium 134 mmol/L (137-145)
[2021-12-17] MEDS: SODIUM CHLORIDE 0.9% 1,000 ML IV SCH ×2 (17:47→23:49)
[2021-12-17] MEDS: POTASSIUM CHLORIDE 10 MEQ in WATER FOR INJECTION 1 100ML.BAG IVPB SCH ×3 (17:47→19:05)
[2021-12-17 17:57] LABS: Glucose,Whole Blood 361 mg/dL (70-110)
--- NOTE | 2021-12-17 17:57 | P.CARDCATH ---
Operative Findings: Date of Service 12/17/2021 Procedure: #1 left heart catheterization and coronary angiography. #2 PTCA and stenting of a totally occluded high up to small marginal/ramus intermedius branch with a drug-eluting stent and PTCA of previously stented LAD in the setting of hypotension. Clinical information: This patient has diabetes mellitus probably type II, hypertension hyperlipidemia CAD with previous PCI in 2007 of LAD and sees risk developer in the [place] area. She came in for elective left total hip anterior arthroplasty performed by Dr. Sanchez. Following the procedure in the recovery room she had chest discomfort with inferolateral ST elevation and this was at about 2:30 PM. I evaluated the patient in the recovery room and advised prompt cardiac catheterization and PCI. This lady apparently did not have any anginal symptoms and was cleared by her primary care doctor and risk developer for this elective hip surgery. Indication for procedure acute inferolateral ST elevation CA Procedure Performed by: Dr. Theresa Archer Moderate conscious sedation time was 2 hours and 12 minutes. Patient was initi ally treated with the Dilaudid and Versed subsequently intubated during the case and propofol was also given. Hemodynamics oxygen saturation were followed very closely Clinical Information Equipment used right radial approach initially and I used a JR4 and JL 3.5 guiding catheters. I performed a PCI with a run through wire of the circumflex marginal/ramus with a 4.0 drug-eluting stent subsequently because patient was agitated and pulling her hand I switched the femoral approach and used a JL4 guide catheter and dilated of the LAD as well as with a 3.5 balloon. Excellent angiographic result was achieved patient was hemodynamically unstable high doses of pressors were used eventually she was sent to the ICU on 10 mics of Levophed and 3 mics of dopamine with a blood pressure of 118/78. She had a Vinson catheter placed. She was intubated on the table by anesthesia because of her agitation and hypotension. I considered but decided not to use Impala. Patient had a anterior hip arthroplasty earlier today. She has a codominant system RCA was patent and disease-free LAD stent was patent but there was some sluggish flow with some clot. Circumflex marginal/ramus was totally occluded with thrombus which was stented Findings: The LV end-diastolic pressure was 15 mmHg with no gradient. RCA dominant disease-free bifurcates into PDA and PLV. Left main is free of significant disease, LAD had some sluggish flow with stent in the proximal LAD almost in the ostium. Circumflex and ramus was totally occluded with sluggish flow culprit vessel, navajo circumflex was small and free of significant disease. I performed a PCI of the circumflex marginal with a 4.0 x 15 drug-eluting stent and dilated the LAD which had sluggish flow with some thrombus displacement using a 3.5 NC trek balloon. Eventually result was excellent with GEOVANNY 3 flow and patient was sent to the ICU details of the procedure results and circumstances would expect the patient's and also 2 other family members. Prognosis remains guarded Description Result excellent angiographic result of circumflex marginal/ramus which is the culprit vessel and also LAD was dilated. Circumflex was stented. Patient was hypotensive on pressors intubated sent to ICU prognosis remains guarded
--- NOTE | 2021-12-17 18:01 | FL ---
EXAMINATION TYPE: FL guidance operating room, XR Hip Limited LT DATE OF EXAM: 12/17/2021 COMPARISON: NONE HISTORY: 66-year-old female a few left hip replacement TECHNIQUE: Intraoperative fluoroscopy FINDINGS: Intraoperative fluoroscopy during total left hip arthroplasty. 8 images are provided. FLUOROSCOPY Fluoroscopy time of 42 seconds was used during anterior left hip replacement. 8 image/s document/s t he procedure. IMPRESSION: Intraoperative fluoroscopy as outlined above. .
[2021-12-17] MEDS ORDERED: INSULIN REGULAR BOLUS (FROM DRIP BAG) IV PRN (18:03)
[2021-12-17] MEDS ORDERED: DEXTROSE 50% SYRINGE 50 ML IVP PRN ×2 (18:03)
[2021-12-17 18:11] LABS: ABG Base Excess -8.6 mmol/L; ABG HCO3 18 mmol/L (21-25); ABG Hematocrit 33 % (34.0-46.0); ABG Oxygen Saturation 98.2 % (94-97); ABG PCO2 40 mmHg (35-45); ABG PH 7.27 (7.35-7.45); ABG PO2 243 mmHg (83-108); ABG TCO2 20 mmol/L (19-24); Allen Test Performed? Yes
[2021-12-17] MEDS ORDERED: INSULIN REGULAR 100 UNIT in SODIUM CHLORIDE 0.9% 100 ML IV SCH (18:15)
[2021-12-17 18:22] LABS: HCT 32.5 % (34.0-46.0); HGB 10.4 gm/dL (11.4-16.0); MCH 29.8 pg (25.0-35.0); Mean Platelet Volume 8.6; Platelet Count 223 k/uL (150-450); RBC 3.49 m/uL (3.80-5.40); RDW 12.7 % (11.5-15.5); WBC 24.9 k/uL (3.8-10.6)
[2021-12-17] MEDS ORDERED: FUROSEMIDE 10 MG/ML 4 ML VIAL IV STA (18:22)
[2021-12-17] MEDS ORDERED: SODIUM BICARB 8.4% 50 ML SYR (1 MEQ/ML) IV STA (18:23)
[2021-12-17 18:32] LABS: Glucose,Whole Blood 397 mg/dL (70-110)
[2021-12-17] MEDS: HYDROmorphone 0.5 MG/0.5 ML SYRINGE IVP PRN (18:32)
--- NOTE | 2021-12-17 18:33 | XR ---
EXAMINATION TYPE: XR chest 1V portable DATE OF EXAM: 12/17/2021 6:03 PM COMPARISON: THIS EXAM WAS READ DURING PACS DOWNTIME, NO PRIORS AVAILABLE. TECHNIQUE: XR chest 1V portable Portable AP radiograph of the chest. CLINICAL INDICATION:Female, 66 years old with history of Tube placement; FINDINGS: Lungs/Pleura: Multifocal airspace opacities. No evidence of pneumothorax or pleural effusion. Pulmonary vascularity: Unremarkable. Heart/mediastinum: Cardiomediastinal silhouette is unremarkable. Musculoskeletal: No acute osseous pathology. Other findings: None Lines/Tubes: Endotracheal tube with distal tip 2.9 cm above the robe Nasogastric tube with side-port projecting over the distal esophagus. IMPRESSION: 1. Endotracheal tube with distal tip in appropriate position. 2. Nasogastric tube with distal tip at the distal gastroesophageal junction. Advancement of 12 cm is recommended for optimal placement. 3. Similar multifocal airspace opacities.
[2021-12-17] MEDS: NOREPINEPHRINE 4 MG in SODIUM CHLORIDE 0.9% 250 ML IV SCH ×2 (18:46→19:57)
[2021-12-17 18:55] LABS: Glucose,Whole Blood 369 mg/dL (70-110)
[2021-12-17] MEDS ORDERED: Magnesium Replacement Protocol 1 EACH MISC MISCELLANE PRN (18:57)
[2021-12-17] MEDS: MAGNESIUM SULFATE-D5W PMX 1 GM in DEXTROSE/WATER 1 100ML.BAG IVPB SCH ×2 (19:35→23:50)
[2021-12-17 19:37] LABS: ALT 48 U/L (4-34); AST 114 U/L (14-36); African American GFR (CKD) >90 (>60 ml/min/1.73 sqM); Albumin 3.3 g/dL (3.5-5.0); Alkaline Phosphatase 140 U/L (38-126); Anion Gap 14 mmol/L; Blood Urea Nitrogen 21 mg/dL (7-17); Calcium 7.6 mg/dL (8.4-10.2); Carbon Dioxide 16 mmol/L (22-30); Chloride 105 mmol/L (98-107); Glucose 341 mg/dL (74-99); Magnesium 1.2 mg/dL (1.6-2.3); Non-African American GFR(CKD) >90 (>60 ml/min/1.73 sqM); Potassium 3.9 mmol/L (3.5-5.1); Sodium 135 mmol/L (137-145); Total Protein 5.5 g/dL (6.3-8.2)
--- NOTE | 2021-12-17 20:06 | CA ---
Transthoracic Echo Report Name: Adilene Arauz Age: 66 Gender: F : 1955 Exam Date: 12/17/2021 17:08 Exam Location: [facility] Ht (in): 64 Wt (lb): 160 Ordering Physician: Seema Archer MD ([id number]) Attending/Referring Phys: Animal Pathology Teacher Umm Shanks RDCS Procedure CPT: Indications: stemi Cardiac Hx: Technical Quality: Good Contrast 1: Total Dose (mL): Contrast 2: Total Dose (mL): MEASUREMENTS (Male / Female) Normal Values 2D ECHO LV Diastolic Diameter PLAX 3.6 cm 4.2 - 5.9 / 3.9 - 5.3 cm LV Systolic Diameter PLAX 2.9 cm IVS Diastolic Thickness 1.0 cm 0.6 - 1.0 / 0.6 - 0.9 cm LVPW Diastolic Thickness 1.2 cm 0.6 - 1.0 / 0.6 - 0.9 cm LV Relative Wall Thickness 0.6 RV Internal Dim ED PLAX 2.6 cm DOPPLER AV Peak Velocity 126.9 cm/s AV Peak Gradient 6.4 mmHg MV Area PHT 8.3 cm??? Mitral E Point Velocity 63.5 cm/s Mitral A Point Velocity 66.6 cm/s Mitral E to A Ratio 1.0 MV Deceleration Time 91.1 ms TR Peak Velocity 284.5 cm/s TR Peak Gradient 32.4 mmHg Right Ventricular Systolic Press 37.4 mmHg FINDINGS Left Ventricle LV size is normal there is hypokinesia of the distal septum and adjoining anteroapical wall. There is also hypokinesia of the inferobasal wall. Ejection fraction is about 35-40% Right Ventricle The right ventricle is normal in size and function. Mild pulmonary hypertension. Right Atrium The right atrium is normal in size. Left Atrium The left atrium is normal in size. Mitral Valve Structurally normal mitral valve without significant stenosis or prolapse. There is mild essentric mitral regurgitation. Aortic Valve Structurally normal aortic valve without significant sclerosis or stenosis. There is no aortic regurgitation. Tricuspid Valve Structurally normal tricuspid valve without significant stenosis. Mild-to- moderate tricuspid regurgitation. Pulmonic Valve Structurally normal pulmonic valve without significant stenosis. There is no pulmonic regurgitation. Pericardium Normal pericardium without effusion. Aorta Normal aortic root dimension. CONCLUSIONS Ischemic cardiomyopathy with distal septal and anteroapical hypokinesis and inferobasal hypokinesia and ejection fraction is 35-40% no significant abnormality on the Doppler exam no significant pulmonary hypertension. No pericardial effusion Previewed by: Dr. Seema Archer MD (Electronically Signed) Final Date: 17 December 2021 20:05
[2021-12-17 20:09] LABS: Glucose,Whole Blood 282 mg/dL (70-110)
[2021-12-17] MEDS: SENNOSIDES-DOCUSATE SODIUM 1 EACH TAB PO SCH (20:31)
[2021-12-17] MEDS: ATORVASTATIN 80 MG TAB PO SCH (20:34)
[2021-12-17] MEDS: CHLORHEXIDINE GLUCONATE 15 ML CUP MUCOUS MEM SCH (20:34)
[2021-12-17] MEDS ORDERED: ASPIRIN 81 MG PO SCH (21:00)
[2021-12-17 21:02] LABS: Glucose,Whole Blood 248 mg/dL (70-110)
[2021-12-17 22:10] LABS: Glucose,Whole Blood 231 mg/dL (70-110)
[2021-12-17 22:58] LABS: Glucose,Whole Blood 225 mg/dL (70-110)
[2021-12-18 00:07] LABS: Glucose,Whole Blood 147 mg/dL (70-110)
[2021-12-18 00:11] LABS: ALT 61 U/L (4-34); AST 205 U/L (14-36); African American GFR (CKD) >90 (>60 ml/min/1.73 sqM); Albumin 2.9 g/dL (3.5-5.0); Alkaline Phosphatase 115 U/L (38-126); Anion Gap 7 mmol/L; Blood Urea Nitrogen 20 mg/dL (7-17); Calcium 7.5 mg/dL (8.4-10.2); Carbon Dioxide 22 mmol/L (22-30); Chloride 108 mmol/L (98-107); Glucose 144 mg/dL (74-99); Non-African American GFR(CKD) 88 (>60 ml/min/1.73 sqM); Potassium 3.2 mmol/L (3.5-5.1); Sodium 137 mmol/L (137-145); Total Bilirubin 0.4 mg/dL (0.2-1.3)
[2021-12-18 01:10] LABS: Glucose,Whole Blood 189 mg/dL (70-110)
[2021-12-18] MEDS ORDERED: Potassium Replacement Protocol 1 EACH MISC MISCELLANE PRN (01:33)
[2021-12-18] MEDS: HYDROmorphone 0.5 MG/0.5 ML SYRINGE IVP PRN ×5 (01:50→19:38)
[2021-12-18] MEDS: POTASSIUM BICARBONATE/CIT AC 20 MEQ TABLET.EFF NG-TUBE SCH ×2 (02:00→03:58)
[2021-12-18] MEDS: MAGNESIUM SULFATE-D5W PMX 1 GM in DEXTROSE/WATER 1 100ML.BAG IVPB SCH (02:03)
[2021-12-18 02:23] LABS: Glucose,Whole Blood 126 mg/dL (70-110)
[2021-12-18 03:07] LABS: Glucose,Whole Blood 133 mg/dL (70-110)
[2021-12-18 04:13] LABS: Glucose,Whole Blood 102 mg/dL (70-110)
[2021-12-18 05:19] LABS: Glucose,Whole Blood 117 mg/dL (70-110)
[2021-12-18 05:44] LABS: ABG Base Excess 0.7 mmol/L; ABG HCO3 24 mmol/L (21-25); ABG Hematocrit 28 % (34.0-46.0); ABG Oxygen Saturation 98.1 % (94-97); ABG PCO2 32 mmHg (35-45); ABG PH 7.48 (7.35-7.45); ABG PO2 223 mmHg (83-108); ABG TCO2 25 mmol/L (19-24); Allen Test Performed? Yes
[2021-12-18] MEDS: NOREPINEPHRINE 4 MG in SODIUM CHLORIDE 0.9% 250 ML IV SCH (05:50)
[2021-12-18 06:15] LABS: Glucose,Whole Blood 164 mg/dL (70-110)
--- NOTE | 2021-12-18 06:33 | P.PN ---
Subjective Progress Note Date: 12/18/21 Events from overnight noted with patient's nurse at bedside. The patient is presently intubated and sedated. Objective - Vital Signs Vital signs: Vital Signs Temp 97.9 F 12/18/21 04:00 Pulse 72 12/18/21 06:00 Resp 16 12/18/21 06:00 BP 95/76 12/18/21 06:00 Pulse Ox 100 12/18/21 06:00 FiO2 35 12/18/21 05:46 Intake & Output 12/17/21 12/17/21 12/18/21 06:59 18:59 06:59 Intake Total 5642.721 2370.629 Output Total 1500 1205 Balance 4142.721 1165.629 Weight 72.6 kg 79.3 kg Intake: IV 5626 1925 Potassium Chloride 10 meq 300 1100 In Water For Injection 1 100ml.bag @ 100 mls/hr IVPB Q1HR [facility] Rx#: [id number] Sodium Chloride 0.9% 1, 225 825 000 ml @ 75 mls/hr IV . [id number] [facility] Rx#:[id number] ceFAZolin 2 gm In Sodium 50 Chloride 0.9% 50 ml @ 100 mls/hr IVPB ONCE PRN Rx# :[id number] Intake, IV Titration 16.721 445.629 Amount Insulin Regular 100 unit 3.872 43.287 In Sodium Chloride 0.9% 100 ml @ Per Protocol IV .Q0M [facility] Rx#:[id number] Norepinephrine 4 mg In 286.732 Sodium Chloride 0.9% 250 ml @ 0.05 MCG/KG/MIN 13. 83 mls/hr IV .[id number] [facility] Rx#:[id number] propofoL 1,000 mg In 12.849 115.610 Empty Bag 1 bag @ 10 MCG/ KG/MIN 4.356 mls/hr IV . [id number] [facility] Rx#:[id number] Output: Urine 1400 1205 Estimated Blood Loss 100 Other: Voiding Method Indwelling Catheter Indwelling Catheter ABP, PAP, CO, CI - Last Documented Arterial Blood Pressure 104/48 - Exam The patient is intubated in her bed. Her upper extremities are in restraints. A focused exam of the left lower extremity was conducted. On inspection the dressing over the left hip is clean and dry with no saturation. There is mild swelling in the thigh. The thigh and calf are soft and compressible. The foot is warm and well perfused with brisk capillary refill. - Labs CBC & Chem 7: 12/17/21 17:55 12/17/21 23:43 Labs: Abnormal Lab Results - Last 24 Hours (Table) 12/17/21 12/17/21 12/17/21 Range/Units 09:47 12:11 13:43 WBC (3.8-10.6) k/uL RBC (3.80-5.40) m/uL Hgb (11.4-16.0) gm/dL Hct (34.0-46.0) % Neutrophils # (1.3-7.7) k/uL Lymphocytes # (1.0-4.8) k/uL ABG pH (7.35-7.45) ABG pCO2 (35-45) mmHg ABG pO2 (83-108) mmHg ABG HCO3 (21-25) mmol/L ABG Total CO2 (19-24) mmol/L ABG O2 Saturation (94-97) % ABG Hematocrit (34.0-46.0) % Hemoglobin (11.4-16.0) gm/dL Sodium (137-145) mmol/L Potassium (3.5-5.1) mmol/L Chloride (98-107) mmol/L Carbon Dioxide (22-30) mmol/L BUN (7-17) mg/dL Creatinine (0.52-1.04) mg/dL Glucose (74-99) mg/dL POC Glucose (mg/dL) 370 H 278 H 315 H (70-110) mg/dL Calcium (8.4-10.2) mg/dL Magnesium (1.6-2.3) mg/dL AST (14-36) U/L ALT (4-34) U/L Alkaline Phosphatase (38-126) U/L Troponin I (0.000-0.034) ng/mL Total Protein (6.3-8.2) g/dL Albumin (3.5-5.0) g/dL Crossmatch 12/17/21 12/17/21 12/17/21 Range/Units 14:23 14:53 14:53 WBC (3.8-10.6) k/uL RBC 2.52 L (3.80-5.40) m/uL Hgb 7.6 L (11.4-16.0) gm/dL Hct 23.6 L (34.0-46.0) % Neutrophils # 10.1 H (1.3-7.7) k/uL Lymphocytes # 0.3 L (1.0-4.8) k/uL ABG pH (7.35-7.45) ABG pCO2 (35-45) mmHg ABG pO2 (83-108) mmHg ABG HCO3 (21-25) mmol/L ABG Total CO2 (19-24) mmol/L ABG O2 Saturation (94-97) % ABG Hematocrit (34.0-46.0) % Hemoglobin (11.4-16.0) gm/dL Sodium (137-145) mmol/L Potassium 2.0 L* (3.5-5.1) mmol/L Chloride 116 H (98-107) mmol/L Carbon Dioxide 17 L (22-30) mmol/L BUN 18 H (7-17) mg/dL Creatinine 0.44 L (0.52-1.04) mg/dL Glucose 176 H (74-99) mg/dL POC Glucose (mg/dL) 290 H (70-110) mg/dL Calcium 5.2 L* (8.4-10.2) mg/dL Magnesium (1.6-2.3) mg/dL AST (14-36) U/L ALT (4-34) U/L Alkaline Phosphatase (38-126) U/L Troponin I (0.000-0.034) ng/mL Total Protein (6.3-8.2) g/dL Albumin (3.5-5.0) g/dL Crossmatch 12/17/21 12/17/21 12/17/21 Range/Units 14:55 16:17 16:20 WBC (3.8-10.6) k/uL RBC (3.80-5.40) m/uL Hgb (11.4-16.0) gm/dL Hct (34.0-46.0) % Neutrophils # (1.3-7.7) k/uL Lymphocytes # (1.0-4.8) k/uL ABG pH (7.35-7.45) ABG pCO2 (35-45) mmHg ABG pO2 (83-108) mmHg ABG HCO3 (21-25) mmol/L ABG Total CO2 (19-24) mmol/L ABG O2 Saturation (94-97) % ABG Hematocrit (34.0-46.0) % Hemoglobin (11.4-16.0) gm/dL Sodium 134 L (137-145) mmol/L Potassium (3.5-5.1) mmol/L Chloride 108 H (98-107) mmol/L Carbon Dioxide 13 L (22-30) mmol/L BUN 23 H (7-17) mg/dL Creatinine (0.52-1.04) mg/dL Glucose 370 H (74-99) mg/dL POC Glucose (mg/dL) 125 H 350 H (70-110) mg/dL Calcium 6.8 L (8.4-10.2) mg/dL Magnesium 1.3 L (1.6-2.3) mg/dL AST (14-36) U/L ALT (4-34) U/L Alkaline Phosphatase (38-126) U/L Troponin I (0.000-0.034) ng/mL Total Protein (6.3-8.2) g/dL Albumin (3.5-5.0) g/dL Crossmatch 12/17/21 12/17/21 12/17/21 Range/Units 16:20 16:20 16:26 WBC 15.3 H (3.8-10.6) k/uL RBC 2.90 L (3.80-5.40) m/uL Hgb 8.7 L (11.4-16.0) gm/dL Hct 27.6 L (34.0-46.0) % Neutrophils # (1.3-7.7) k/uL Lymphocytes # (1.0-4.8) k/uL ABG pH (7.35-7.45) ABG pCO2 (35-45) mmHg ABG pO2 (83-108) mmHg ABG HCO3 (21-25) mmol/L ABG Total CO2 (19-24) mmol/L ABG O2 Saturation (94-97) % ABG Hematocrit (34.0-46.0) % Hemoglobin (11.4-16.0) gm/dL Sodium (137-145) mmol/L Potassium (3.5-5.1) mmol/L Chloride (98-107) mmol/L Carbon Dioxide (22-30) mmol/L BUN (7-17) mg/dL Creatinine (0.52-1.04) mg/dL Glucose (74-99) mg/dL POC Glucose (mg/dL) 407 H (70-110) mg/dL Calcium (8.4-10.2) mg/dL Magnesium (1.6-2.3) mg/dL AST (14-36) U/L ALT (4-34) U/L Alkaline Phosphatase (38-126) U/L Troponin I (0.000-0.034) ng/mL Total Protein (6.3-8.2) g/dL Albumin (3.5-5.0) g/dL Crossmatch See Detail 12/17/21 12/17/21 12/17/21 Range/Units 17:55 17:55 17:55 WBC 24.9 H (3.8-10.6) k/uL RBC 3.49 L (3.80-5.40) m/uL Hgb 10.4 L (11.4-16.0) gm/dL Hct 32.5 L (34.0-46.0) % Neutrophils # (1.3-7.7) k/uL Lymphocytes # (1.0-4.8) k/uL ABG pH (7.35-7.45) ABG pCO2 (35-45) mmHg ABG pO2 (83-108) mmHg ABG HCO3 (21-25) mmol/L ABG Total CO2 (19-24) mmol/L ABG O2 Saturation (94-97) % ABG Hematocrit (34.0-46.0) % Hemoglobin (11.4-16.0) gm/dL Sodium 135 L (137-145) mmol/L Potassium (3.5-5.1) mmol/L Chloride (98-107) mmol/L Carbon Dioxide 16 L (22-30) mmol/L BUN 21 H (7-17) mg/dL Creatinine (0.52-1.04) mg/dL Glucose 341 H (74-99) mg/dL POC Glucose (mg/dL) (70-110) mg/dL Calcium 7.6 L (8.4-10.2) mg/dL Magnesium 1.2 L (1.6-2.3) mg/dL AST 114 H (14-36) U/L ALT 48 H (4-34) U/L Alkaline Phosphatase 140 H (38-126) U/L Troponin I 12.400 H* (0.000-0.034) ng/mL Total Protein 5.5 L (6.3-8.2) g/dL Albumin 3.3 L (3.5-5.0) g/dL Crossmatch 12/17/21 12/17/21 12/17/21 Range/Units 17:55 18:05 18:31 WBC (3.8-10.6) k/uL RBC (3.80-5.40) m/uL Hgb (11.4-16.0) gm/dL Hct (34.0-46.0) % Neutrophils # (1.3-7.7) k/uL Lymphocytes # (1.0-4.8) k/uL ABG pH 7.27 L (7.35-7.45) ABG pCO2 (35-45) mmHg ABG pO2 243 H (83-108) mmHg ABG HCO3 18 L (21-25) mmol/L ABG Total CO2 (19-24) mmol/L ABG O2 Saturation 98.2 H (94-97) % ABG Hematocrit 33 L (34.0-46.0) % Hemoglobin 10.6 L (11.4-16.0) gm/dL Sodium (137-145) mmol/L Potassium (3.5-5.1) mmol/L Chloride (98-107) mmol/L Carbon Dioxide (22-30) mmol/L BUN (7-17) mg/dL Creatinine (0.52-1.04) mg/dL Glucose (74-99) mg/dL POC Glucose (mg/dL) 361 H 397 H (70-110) mg/dL Calcium (8.4-10.2) mg/dL Magnesium (1.6-2.3) mg/dL AST (14-36) U/L ALT (4-34) U/L Alkaline Phosphatase (38-126) U/L Troponin I (0.000-0.034) ng/mL Total Protein (6.3-8.2) g/dL Albumin (3.5-5.0) g/dL Crossmatch 12/17/21 12/17/21 12/17/21 Range/Units 18:53 20:08 21:01 WBC (3.8-10.6) k/uL RBC (3.80-5.40) m/uL Hgb (11.4-16.0) gm/dL Hct (34.0-46.0) % Neutrophils # (1.3-7.7) k/uL Lymphocytes # (1.0-4.8) k/uL ABG pH (7.35-7.45) ABG pCO2 (35-45) mmHg ABG pO2 (83-108) mmHg ABG HCO3 (21-25) mmol/L ABG Total CO2 (19-24) mmol/L ABG O2 Saturation (94-97) % ABG Hematocrit (34.0-46.0) % Hemoglobin (11.4-16.0) gm/dL Sodium (137-145) mmol/L Potassium (3.5-5.1) mmol/L Chloride (98-107) mmol/L Carbon Dioxide (22-30) mmol/L BUN (7-17) mg/dL Creatinine (0.52-1.04) mg/dL Glucose (74-99) mg/dL POC Glucose (mg/dL) 369 H 282 H 248 H (70-110) mg/dL Calcium (8.4-10.2) mg/dL Magnesium (1.6-2.3) mg/dL AST (14-36) U/L ALT (4-34) U/L Alkaline Phosphatase (38-126) U/L Troponin I (0.000-0.034) ng/mL Total Protein (6.3-8.2) g/dL Albumin (3.5-5.0) g/dL Crossmatch 12/17/21 12/17/21 12/17/21 Range/Units 22:09 22:56 23:43 WBC (3.8-10.6) k/uL RBC (3.80-5.40) m/uL Hgb (11.4-16.0) gm/dL Hct (34.0-46.0) % Neutrophils # (1.3-7.7) k/uL Lymphocytes # (1.0-4.8) k/uL ABG pH (7.35-7.45) ABG pCO2 (35-45) mmHg ABG pO2 (83-108) mmHg ABG HCO3 (21-25) mmol/L ABG Total CO2 (19-24) mmol/L ABG O2 Saturation (94-97) % ABG Hematocrit (34.0-46.0) % Hemoglobin (11.4-16.0) gm/dL Sodium (137-145) mmol/L Potassium 3.2 L (3.5-5.1) mmol/L Chloride 108 H (98-107) mmol/L Carbon Dioxide (22-30) mmol/L BUN 20 H (7-17) mg/dL Creatinine (0.52-1.04) mg/dL Glucose 144 H (74-99) mg/dL POC Glucose (mg/dL) 231 H 225 H (70-110) mg/dL Calcium 7.5 L (8.4-10.2) mg/dL Magnesium (1.6-2.3) mg/dL AST 205 H (14-36) U/L ALT 61 H (4-34) U/L Alkaline Phosphatase (38-126) U/L Troponin I (0.000-0.034) ng/mL Total Protein 5.0 L (6.3-8.2) g/dL Albumin 2.9 L (3.5-5.0) g/dL Crossmatch 12/18/21 12/18/21 12/18/21 Range/Units 00:05 01:08 02:22 WBC (3.8-10.6) k/uL RBC (3.80-5.40) m/uL Hgb (11.4-16.0) gm/dL Hct (34.0-46.0) % Neutrophils # (1.3-7.7) k/uL Lymphocytes # (1.0-4.8) k/uL ABG pH (7.35-7.45) ABG pCO2 (35-45) mmHg ABG pO2 (83-108) mmHg ABG HCO3 (21-25) mmol/L ABG Total CO2 (19-24) mmol/L ABG O2 Saturation (94-97) % ABG Hematocrit (34.0-46.0) % Hemoglobin (11.4-16.0) gm/dL Sodium (137-145) mmol/L Potassium (3.5-5.1) mmol/L Chloride (98-107) mmol/L Carbon Dioxide (22-30) mmol/L BUN (7-17) mg/dL Creatinine (0.52-1.04) mg/dL Glucose (74-99) mg/dL POC Glucose (mg/dL) 147 H 189 H 126 H (70-110) mg/dL Calcium (8.4-10.2) mg/dL Magnesium (1.6-2.3) mg/dL AST (14-36) U/L ALT (4-34) U/L Alkaline Phosphatase (38-126) U/L Troponin I (0.000-0.034) ng/mL Total Protein (6.3-8.2) g/dL Albumin (3.5-5.0) g/dL Crossmatch 12/18/21 12/18/21 12/18/21 Range/Units 03:06 05:17 05:20 WBC (3.8-10.6) k/uL RBC (3.80-5.40) m/uL Hgb (11.4-16.0) gm/dL Hct (34.0-46.0) % Neutrophils # (1.3-7.7) k/uL Lymphocytes # (1.0-4.8) k/uL ABG pH 7.48 H (7.35-7.45) ABG pCO2 32 L (35-45) mmHg ABG pO2 223 H (83-108) mmHg ABG HCO3 (21-25) mmol/L ABG Total CO2 25 H (19-24) mmol/L ABG O2 Saturation 98.1 H (94-97) % ABG Hematocrit 28 L (34.0-46.0) % Hemoglobin 9.2 L (11.4-16.0) gm/dL Sodium (137-145) mmol/L Potassium (3.5-5.1) mmol/L Chloride (98-107) mmol/L Carbon Dioxide (22-30) mmol/L BUN (7-17) mg/dL Creatinine (0.52-1.04) mg/dL Glucose (74-99) mg/dL POC Glucose (mg/dL) 133 H 117 H (70-110) mg/dL Calcium (8.4-10.2) mg/dL Magnesium (1.6-2.3) mg/dL AST (14-36) U/L ALT (4-34) U/L Alkaline Phosphatase (38-126) U/L Troponin I (0.000-0.034) ng/mL Total Protein (6.3-8.2) g/dL Albumin (3.5-5.0) g/dL Crossmatch 12/18/21 Range/Units 06:14 WBC (3.8-10.6) k/uL RBC (3.80-5.40) m/uL Hgb (11.4-16.0) gm/dL Hct (34.0-46.0) % Neutrophils # (1.3-7.7) k/uL Lymphocytes # (1.0-4.8) k/uL ABG pH (7.35-7.45) ABG pCO2 (35-45) mmHg ABG pO2 (83-108) mmHg ABG HCO3 (21-25) mmol/L ABG Total CO2 (19-24) mmol/L ABG O2 Saturation (94-97) % ABG Hematocrit (34.0-46.0) % Hemoglobin (11.4-16.0) gm/dL Sodium (137-145) mmol/L Potassium (3.5-5.1) mmol/L Chloride (98-107) mmol/L Carbon Dioxide (22-30) mmol/L BUN (7-17) mg/dL Creatinine (0.52-1.04) mg/dL Glucose (74-99) mg/dL POC Glucose (mg/dL) 164 H (70-110) mg/dL Calcium (8.4-10.2) mg/dL Magnesium (1.6-2.3) mg/dL AST (14-36) U/L ALT (4-34) U/L Alkaline Phosphatase (38-126) U/L Troponin I (0.000-0.034) ng/mL Total Protein (6.3-8.2) g/dL Albumin (3.5-5.0) g/dL Crossmatch Assessment and Plan Assessment: Postoperative day #1 status post left direct anterior total hip arthroplasty for subchondral femoral head fracture versus avascular necrosis Acute coronary event postoperatively Plan: Events of yesterday afternoon and last evening were noted. I spoke with the patient's and Dr. Archer yesterday afternoon following surgery. I greatly appreciate the assistance of Dr. Archer, the ICU, and internal medicine. I will defer medical management and anticoagulation to them. In regards to the patient's left hip her dressing should be left in place and once she is medically stable she can mobilize out of bed and into a chair. She can fully weight-bear on her left leg. We will continue to closely monitor and follow her as she remains an inpatient. Time with Patient: Greater than 30
[2021-12-18 06:47] LABS: Basophils % (A) 0 %; Eosinophils % (A) 0 %; HCT 26.6 % (34.0-46.0); HGB 9.1 gm/dL (11.4-16.0); Lymphocytes # (A) 1.4 k/uL (1.0-4.8); Lymphocytes % (A) 7 %; MCH 30.5 pg (25.0-35.0); MCHC 34.1 g/dL (31.0-37.0); MCV 89.5 fL (80.0-100.0); Mean Platelet Volume 8.9; Monocytes # (A) 1.1 k/uL (0-1.0); Monocytes % (A) 6 %; Neutrophils % (A) 86 %; Platelet Count 229 k/uL (150-450); RBC 2.98 m/uL (3.80-5.40); WBC 18.7 k/uL (3.8-10.6)
[2021-12-18 07:00] LABS: Glucose,Whole Blood 153 mg/dL (70-110)
[2021-12-18 07:12] LABS: ALT 55 U/L (4-34); AST 187 U/L (14-36); African American GFR (CKD) >90 (>60 ml/min/1.73 sqM); Albumin 2.8 g/dL (3.5-5.0); Alkaline Phosphatase 120 U/L (38-126); Anion Gap 7 mmol/L; Blood Urea Nitrogen 20 mg/dL (7-17); Calcium 7.4 mg/dL (8.4-10.2); Carbon Dioxide 22 mmol/L (22-30); Chloride 108 mmol/L (98-107); Glucose 137 mg/dL (74-99); Magnesium 2.2 mg/dL (1.6-2.3); Non-African American GFR(CKD) 88 (>60 ml/min/1.73 sqM); Potassium 4.1 mmol/L (3.5-5.1); Sodium 137 mmol/L (137-145); Total Bilirubin 0.3 mg/dL (0.2-1.3); Total Protein 4.8 g/dL (6.3-8.2)
--- NOTE | 2021-12-18 07:25 | XR ---
EXAMINATION TYPE: XR chest 1V portable DATE OF EXAM: 12/18/2021 5:56 AM COMPARISON: Chest radiograph from one day prior. TECHNIQUE: XR chest 1V portable Portable AP radiograph of the chest. CLINICAL INDICATION:Female, 66 years old with history of Tube placement; FINDINGS: Lungs/Pleura: Degenerative obscures the upper lungs. There is no evidence of pleural effusion, focal consolidation, or pneumothorax. Pulmonary vascularity: Unremarkable. Heart/mediastinum: Cardiomediastinal silhouette is enlarged and stable. Musculoskeletal: No acute osseous pathology. Other findings: None Lines/Tubes: Nasogastric tube with distal tip and side-port projecting over the distal esophagus. IMPRESSION: 1. Advancement of 9 cm above the nasogastric tube is recommended for optimal placement remains the r ecommendation from one day prior. 2. Similar multifocal opacities given differences in technique.
[2021-12-18] MEDS: LACTATED RINGERS 1,000 ML IV SCH (07:57)
[2021-12-18 08:06] LABS: Glucose,Whole Blood 90 mg/dL (70-110)
[2021-12-18] MEDS: ASPIRIN 81 MG PO SCH (08:06)
[2021-12-18] MEDS: CHLORHEXIDINE GLUCONATE 15 ML CUP MUCOUS MEM SCH (08:06)
[2021-12-18] MEDS: CLOPIDOGREL 75 MG TAB PO SCH (08:06)
[2021-12-18 11:31] LABS: Glucose,Whole Blood 81 mg/dL (70-110)
[2021-12-18] MEDS ORDERED: DEXTROSE 50% SYRINGE 50 ML IVP PRN ×2 (12:46)
--- NOTE | 2021-12-18 12:48 | P.CNPUL ---
History of Present Illness Consult date: 12/18/21 Requesting physician: Seema Archer Reason for consult: other (Acute hypoxic respiratory failure ) Chief complaint: Chest pain History of present illness: This is a 66-year-old female with known history of coronary artery disease, previous PCI in 2007. Known history of hypertension, dyslipidemia, type 1 diabetes, hypothyroidism, patient had elective anterior hip arthroplasty yesterday, and while in recovery the patient had sudden severe midsternal left- sided chest pain. Patient was also noted to be diaphoretic, EKG revealed ST elevation in anterolateral leads, patient was urgently taken to the cardiac catheterization lab, underwent cardiac catheterization. Underwent PTCA and stenting of totally occluded circumflex marginal and this was stented using a drug eluting stent and PTCA of previously stented LAD. Patient developed hypotension and she required intubation she had to be placed on relatively high dose of norepinephrine and dopamine and she was transferred to the ICU asked to see her on consultation I was notified about this patient from Dr. Archer and I called the ICU, adjusted her ventilator settings based on her ABG, reviewed chest x-ray that showed evidence of pulmonary edema, and I recommended Lasix to be given. Chest x-ray today showed improvement, I evaluated the patient in the ICU today, and recommending stopping propofol, I also recommended weaning antohny eters once she is completely off propofol and awake. Weaning parameters were done shortly after my evaluation, and the patient had excellent weaning parameters, she was on pressure support of 8 and CPAP, went ahead and extubated the patient uneventfully. Review of Systems ROS unobtainable: due to endotracheal tube Past Medical History Past Medical History: Coronary Artery Disease (CAD), Diabetes Mellitus, Hyperlipidemia, Hypertension, Osteoarthritis (OA) History of Any Multi-Drug Resistant Organisms: None Reported Past Surgical History: Heart Catheterization With Stent Additional Past Surgical History / Comment(s): fatty tumors removed x 2. DENTAL SURGERY Past Anesthesia/Blood Transfusion Reactions: Motion Sickness, Postoperative Nausea & Vomiting (PONV) Date of Last Stent Placement:: 2007 Past Psychological History: No Psychological Hx Reported Smoking Status: Never smoker Past Alcohol Use History: Occasional Past Drug Use History: None Reported - Past Family History Father Family Medical History: Cancer Medications and Allergies Home Medications Medication Instructions Recorded Confirmed Type Cholecalciferol (Vitamin D3) 2,000 unit PO DAILY 10/02/16 12/17/21 History [Vitamin D3] Clopidogrel Bisulfate [Plavix] 75 mg PO DAILY 10/02/16 12/17/21 History HYDROcodone/APAP 10-325MG [[place] 1 tab PO Q6H PRN #15 tab 10/02/16 12/17/21 Rx 10-325] INSULIN LISPRO (HumaLOG) [HumaLOG] 4 units SQ BID 10/02/16 12/17/21 History Insulin Glargine [Lantus] 15 unit SQ HS 10/02/16 12/17/21 History Levothyroxine Sodium [Synthroid] 112 mcg PO DAILY 10/02/16 12/17/21 History Losartan Potassium [Cozaar] 50 mg PO DAILY 10/02/16 12/17/21 History hydroCHLOROthiazide 25 mg PO DAILY 10/02/16 12/17/21 History Aspirin EC [Ecotrin Low Dose] 81 mg PO DAILY 12/15/21 12/17/21 History Biotin [Biotin Disolve] 5,000 mcg PO DAILY 12/15/21 12/17/21 History Cyanocobalamin (Vitamin B-12) 2,500 mcg PO DAILY 12/15/21 12/17/21 History [Vitamin B-12] INSULIN LISPRO (humaLOG) [HumaLOG] 6 unit SQ AC-SUPPER 12/15/21 12/17/21 History Ibuprofen [Motrin] 800 mg PO Q8H PRN 12/15/21 12/17/21 History Pravastatin Sodium [Pravachol] 40 mg PO HS 12/15/21 12/17/21 History Aspirin 81 mg PO BID 30 Days #60 tab 12/17/21 Rx Diclofenac Sodium [Voltaren] 75 mg PO BID 30 Days #60 tab 12/17/21 Rx Docusate [Colace] 100 mg PO BID #60 capsule 12/17/21 Rx HYDROcodone/APAP 7.5-325MG [[place] 1 - 2 tab PO Q6HR PRN 7 Days #32 12/17/21 Rx 7.5-325] tab Omeprazole 40 mg PO DAILY 30 Days #30 cap 12/17/21 Rx Allergies Allergy/AdvReac Type Severity Reaction Status Date / Time codeine Allergy Swelling Verified 12/17/21 09:13 Physical Exam Vitals: Vital Signs Temp Pulse Pulse Resp BP BP Pulse Ox 12/18/21 11:13 12/18/21 11:00 98 15 104/59 100 12/18/21 10:00 80 16 89/53 100 12/18/21 09:00 89 20 115/63 99 12/18/21 08:22 12/18/21 08:13 12/18/21 08:00 97.4 F L 77 31 H 100/56 100 12/18/21 07:46 12/18/21 07:00 70 16 100/59 100 12/18/21 06:00 72 16 95/76 100 12/18/21 05:46 12/18/21 05:00 89 22 83/54 100 12/18/21 04:42 12/18/21 04:00 97.9 F 64 16 84/54 100 12/18/21 03:52 12/18/21 03:00 64 16 106/62 100 12/18/21 02:00 71 16 94/59 100 12/18/21 01:00 64 16 90/62 100 12/18/21 00:28 12/18/21 00:12 97.7 F 66 16 90/62 99 12/18/21 00:00 67 16 88/58 99 12/17/21 23:00 67 16 91/60 99 12/17/21 22:00 68 16 90/49 99 12/17/21 21:00 75 16 89/63 100 12/17/21 20:00 97.5 F L 73 16 91/65 100 12/17/21 19:24 12/17/21 19:00 99 16 91/65 91 L 12/17/21 18:51 12/17/21 18:45 95 15 97/80 94 L 12/17/21 18:30 103 H 22 92 L 12/17/21 18:17 12/17/21 18:15 89 22 100 12/17/21 18:00 92 21 99 12/17/21 17:45 101 H 12 112/82 98 12/17/21 17:41 12/17/21 17:33 91 12 91 L 12/17/21 16:21 12/17/21 14:25 61 18 79/48 99 12/17/21 14:10 75 18 87/57 98 12/17/21 13:55 72 16 119/58 99 12/17/21 13:38 75 16 117/59 96 12/17/21 13:22 98.3 F 89 16 135/65 99 FiO2 12/18/21 11:13 35 12/18/21 11:00 12/18/21 10:00 12/18/21 09:00 12/18/21 08:22 35 12/18/21 08:13 35 12/18/21 08:00 35 12/18/21 07:46 35 12/18/21 07:00 12/18/21 06:00 12/18/21 05:46 35 12/18/21 05:00 12/18/21 04:42 50 12/18/21 04:00 50 12/18/21 03:52 50 12/18/21 03:00 12/18/21 02:00 12/18/21 01:00 12/18/21 00:28 50 12/18/21 00:12 12/18/21 00:00 50 12/17/21 23:00 12/17/21 22:00 12/17/21 21:00 12/17/21 20:00 50 12/17/21 19:24 50 12/17/21 19:00 50 12/17/21 18:51 50 12/17/21 18:45 12/17/21 18:30 12/17/21 18:17 50 12/17/21 18:15 12/17/21 18:00 12/17/21 17:45 12/17/21 17:41 100 12/17/21 17:33 12/17/21 16:21 100 12/17/21 14:25 12/17/21 14:10 12/17/21 13:55 12/17/21 13:38 12/17/21 13:22 Intake and Output 12/17/21 12/18/21 12/18/21 22:59 06:59 14:59 Intake Total 3293.576 1768.774 535.521 Output Total 2125 480 260 Balance 2601.031 7180.774 275.521 Intake: IV 3200 1400 365 Potassium Chloride 10 meq 600 800 100 In Water For Injection 1 100ml.bag @ 100 mls/hr IVPB Q1HR [facility] Rx#: [id number] Sodium Chloride 0.9% 1, 450 600 265 000 ml @ 20 mls/hr IV . Q24H [facility] Rx#:[id number] ceFAZolin 2 gm In Sodium 50 Chloride 0.9% 50 ml @ 100 mls/hr IVPB ONCE PRN Rx# :[id number] Intake, IV Titration 93.576 368.774 170.521 Amount Insulin Regular 100 unit 31.007 16.152 5.268 In Sodium Chloride 0.9% 100 ml @ Per Protocol IV .Q0M [facility] Rx#:[id number] Norepinephrine 4 mg In 32.732 254 96.536 Sodium Chloride 0.9% 250 ml @ 0.05 MCG/KG/MIN 13. 83 mls/hr IV .[id number] [facility] Rx#:[id number] propofoL 1,000 mg In 29.837 98.622 68.717 Empty Bag 1 bag @ 10 MCG/ KG/MIN 4.356 mls/hr IV . [id number] [facility] Rx#:[id number] Output: Urine 2125 480 260 Other: Voiding Method Indwelling Catheter Indwelling Catheter Indwelling Catheter Weight 72.6 kg 79.3 kg ABP, PAP, CO, CI - Last 8 Hours Arterial Blood Pressure 106/50 Arterial Blood Pressure 104/46 Arterial Blood Pressure 104/48 Arterial Blood Pressure 126/59 Physical Exam: Revealed a 66-year-old female intubated and sedated on propofol, on low-dose norepinephrine. 0.02 mcg/kg/m. Head: Atraumatic, normocephalic endotracheal tube and orogastric tube are intact. HEENT:[Neck is supple.] [No neck masses.] [No thyromegaly.] [No JVD.] Chest: [Symmetrical chest expansion fine crackles at the bases. No rhonchi and no wheezes] Cardiac Exam: [Normal S1 and S2, no S3 gallop, no murmur.] Abdomen: [Soft, nontender, no megaly, no rebound, no guarding, normal bowel sounds.] Extremities: [No clubbing, no edema, no cyanosis.] Neurological Exam: [No focal neurologic deficit.] Patient is on propofol but she is arousable and follows simple instructions Psychiatric: Normal mood affect and normal mental status examination. Skin: No rashes patient had her groin sheath removed earlier. Results - Laboratory Findings CBC and BMP: 12/18/21 06:15 12/18/21 06:15 ABG ABG pH 7.48 (7.35-7.45) H 12/18/21 05:20 ABG pCO2 32 mmHg (35-45) L 12/18/21 05:20 ABG pO2 223 mmHg (83-108) H 12/18/21 05:20 ABG O2 Saturation 98.1 % (94-97) H 12/18/21 05:20 Abnormal lab findings: Abnormal Labs 12/17/21 12/17/21 12/17/21 09:47 12:11 13:43 WBC RBC Hgb Hct Neutrophils # Lymphocytes # Monocytes # ABG pH ABG pCO2 ABG pO2 ABG HCO3 ABG Total CO2 ABG O2 Saturation ABG Hematocrit Hemoglobin Sodium Potassium Chloride Carbon Dioxide BUN Creatinine Glucose POC Glucose (mg/dL) 370 H 278 H 315 H Calcium Ionized Calcium Jan Magnesium AST ALT Alkaline Phosphatase Troponin I Total Protein Albumin Crossmatch 12/17/21 12/17/21 12/17/21 14:23 14:53 14:53 WBC RBC 2.52 L Hgb 7.6 L Hct 23.6 L Neutrophils # 10.1 H Lymphocytes # 0.3 L Monocytes # ABG pH ABG pCO2 ABG pO2 ABG HCO3 ABG Total CO2 ABG O2 Saturation ABG Hematocrit Hemoglobin Sodium Potassium 2.0 L* Chloride 116 H Carbon Dioxide 17 L BUN 18 H Creatinine 0.44 L Glucose 176 H POC Glucose (mg/dL) 290 H Calcium 5.2 L* Ionized Calcium Jan Magnesium AST ALT Alkaline Phosphatase Troponin I Total Protein Albumin Crossmatch 12/17/21 12/17/21 12/17/21 14:55 16:17 16:20 WBC RBC Hgb Hct Neutrophils # Lymphocytes # Monocytes # ABG pH ABG pCO2 ABG pO2 ABG HCO3 ABG Total CO2 ABG O2 Saturation ABG Hematocrit Hemoglobin Sodium 134 L Potassium Chloride 108 H Carbon Dioxide 13 L BUN 23 H Creatinine Glucose 370 H POC Glucose (mg/dL) 125 H 350 H Calcium 6.8 L Ionized Calcium Jan Magnesium 1.3 L AST ALT Alkaline Phosphatase Troponin I Total Protein Albumin Crossmatch 12/17/21 12/17/21 12/17/21 16:20 16:20 16:26 WBC 15.3 H RBC 2.90 L Hgb 8.7 L Hct 27.6 L Neutrophils # Lymphocytes # Monocytes # ABG pH ABG pCO2 ABG pO2 ABG HCO3 ABG Total CO2 ABG O2 Saturation ABG Hematocrit Hemoglobin Sodium Potassium Chloride Carbon Dioxide BUN Creatinine Glucose POC Glucose (mg/dL) 407 H Calcium Ionized Calcium Jan Magnesium AST ALT Alkaline Phosphatase Troponin I Total Protein Albumin Crossmatch See Detail 12/17/21 12/17/21 12/17/21 17:55 17:55 17:55 WBC 24.9 H RBC 3.49 L Hgb 10.4 L Hct 32.5 L Neutrophils # Lymphocytes # Monocytes # ABG pH ABG pCO2 ABG pO2 ABG HCO3 ABG Total CO2 ABG O2 Saturation ABG Hematocrit Hemoglobin Sodium 135 L Potassium Chloride Carbon Dioxide 16 L BUN 21 H Creatinine Glucose 341 H POC Glucose (mg/dL) Calcium 7.6 L Ionized Calcium Jan Magnesium 1.2 L AST 114 H ALT 48 H Alkaline Phosphatase 140 H Troponin I 12.400 H* Total Protein 5.5 L Albumin 3.3 L Crossmatch 12/17/21 12/17/21 12/17/21 17:55 18:05 18:31 WBC RBC Hgb Hct Neutrophils # Lymphocytes # Monocytes # ABG pH 7.27 L ABG pCO2 ABG pO2 243 H ABG HCO3 18 L ABG Total CO2 ABG O2 Saturation 98.2 H ABG Hematocrit 33 L Hemoglobin 10.6 L Sodium Potassium Chloride Carbon Dioxide BUN Creatinine Glucose POC Glucose (mg/dL) 361 H 397 H Calcium Ionized Calcium Jan Magnesium AST ALT Alkaline Phosphatase Troponin I Total Protein Albumin Crossmatch 12/17/21 12/17/21 12/17/21 18:53 20:08 21:01 WBC RBC Hgb Hct Neutrophils # Lymphocytes # Monocytes # ABG pH ABG pCO2 ABG pO2 ABG HCO3 ABG Total CO2 ABG O2 Saturation ABG Hematocrit Hemoglobin Sodium Potassium Chloride Carbon Dioxide BUN Creatinine Glucose POC Glucose (mg/dL) 369 H 282 H 248 H Calcium Ionized Calcium Jan Magnesium AST ALT Alkaline Phosphatase Troponin I Total Protein Albumin Crossmatch 12/17/21 12/17/21 12/17/21 22:09 22:56 23:43 WBC RBC Hgb Hct Neutrophils # Lymphocytes # Monocytes # ABG pH ABG pCO2 ABG pO2 ABG HCO3 ABG Total CO2 ABG O2 Saturation ABG Hematocrit Hemoglobin Sodium Potassium 3.2 L Chloride 108 H Carbon Dioxide BUN 20 H Creatinine Glucose 144 H POC Glucose (mg/dL) 231 H 225 H Calcium 7.5 L Ionized Calcium Jan Magnesium AST 205 H ALT 61 H Alkaline Phosphatase Troponin I Total Protein 5.0 L Albumin 2.9 L Crossmatch 12/18/21 12/18/21 12/18/21 00:05 01:08 02:22 WBC RBC Hgb Hct Neutrophils # Lymphocytes # Monocytes # ABG pH ABG pCO2 ABG pO2 ABG HCO3 ABG Total CO2 ABG O2 Saturation ABG Hematocrit Hemoglobin Sodium Potassium Chloride Carbon Dioxide BUN Creatinine Glucose POC Glucose (mg/dL) 147 H 189 H 126 H Calcium Ionized Calcium Jan Magnesium AST ALT Alkaline Phosphatase Troponin I Total Protein Albumin Crossmatch 12/18/21 12/18/21 12/18/21 03:06 05:17 05:20 WBC RBC Hgb Hct Neutrophils # Lymphocytes # Monocytes # ABG pH 7.48 H ABG pCO2 32 L ABG pO2 223 H ABG HCO3 ABG Total CO2 25 H ABG O2 Saturation 98.1 H ABG Hematocrit 28 L Hemoglobin 9.2 L Sodium Potassium Chloride Carbon Dioxide BUN Creatinine Glucose POC Glucose (mg/dL) 133 H 117 H Calcium Ionized Calcium Jan Magnesium AST ALT Alkaline Phosphatase Troponin I Total Protein Albumin Crossmatch 12/18/21 12/18/21 12/18/21 06:14 06:15 06:15 WBC 18.7 H RBC 2.98 L Hgb 9.1 L Hct 26.6 L Neutrophils # 16.0 H Lymphocytes # Monocytes # 1.1 H ABG pH ABG pCO2 ABG pO2 ABG HCO3 ABG Total CO2 ABG O2 Saturation ABG Hematocrit Hemoglobin Sodium Potassium Chloride 108 H Carbon Dioxide BUN 20 H Creatinine Glucose 137 H POC Glucose (mg/dL) 164 H Calcium 7.4 L Ionized Calcium Jan Magnesium AST 187 H ALT 55 H Alkaline Phosphatase Troponin I Total Protein 4.8 L Albumin 2.8 L Crossmatch 12/18/21 12/18/21 12/18/21 06:15 06:15 06:59 WBC RBC Hgb Hct Neutrophils # Lymphocytes # Monocytes # ABG pH ABG pCO2 ABG pO2 ABG HCO3 ABG Total CO2 ABG O2 Saturation ABG Hematocrit Hemoglobin Sodium Potassium Chloride Carbon Dioxide BUN Creatinine Glucose POC Glucose (mg/dL) 153 H Calcium Ionized Calcium Jan 4.4 L Magnesium AST ALT Alkaline Phosphatase Troponin I 47.400 H* Total Protein Albumin Crossmatch - Diagnostic Findings Chest x-ray: image reviewed (As noted in HPI) Assessment and Plan Assessment: Impression: Acute ST elevation myocardial infarction, status post emergent cardiac catheterization and stenting of circumflex marginal branch and stenting of LAD. Which was previously stented. Acute hypoxic respiratory failure secondary to acute myocardial infarction and hypotension requiring intubation and mechanical ventilation. And secondary to acute pulmonary edema/acute systolic congestive heart failure. Status post left anterior total hip arthroplasty, postoperative day #1 Acute pulmonary edema secondary to acute systolic congestive heart failure Recommendation: Patient was seen in the ICU, will discontinue propofol, may consider Precedex. Instead, We will place the patient on pressure support and CPAP mode of mechanical ventilation Will monitor weaning parameters, and we'll likely extubate. In fact patient was extubated 2 hours after my initial evaluation and I went back to see the patient prior to extubation which was done successfully. We will continue to monitor in the ICU. Continue medical therapy including statins, Plavix, beta blockers, and aspirin. Incentive spirometry to bedside. GI and DVT prophylaxis. We'll continue to follow while in ICU. Time with Patient: Greater than 30
--- NOTE | 2021-12-18 13:49 | P.PN ---
Subjective HISTORY OF PRESENTING ILLNESS This is a pleasant 66-year-old female past medical history significant for coronary artery disease status post PCI in 2007, hypothyroidism, hypertension, dyslipidemia, type 1 diabetes. She follows with Dr. Shaggy Hernandez. We have been asked to see in consultation for chest pain and EKG changes post op. Patient presented to the hospital for planned elective left anterior total hip arthroplasty. Postoperatively patient was taken to recovery. She had midsternal left-sided chest pain. Associated nausea. EKG was performed which revealed ST elevation in inferior and lateral leads. No significant ST depress ion in V2 and V3. Secondary to EKG abnormalities cardiology was notified. Patient was alert, drowsy post op. Hypotensive but BP improved 102/56 with IV fluids. She continued to have active chest pain and nausea. 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 Labs not available at the time of this dictation. Patient denies any history of LA, stroke. She underwent PCI in 2007 she states secondary to abnormal stress test. 12/18 Patient seen and examined. Patient underwent heart catheterization yesterday showing total occlusion of large ramus branch and underwent stenting. Patient additionally hypotensive and therefore underwent balloon angioplasty of the LAD. She was hypotensive and intubated. She has been extubated today and on room air. She is anxious however denies any chest pain or pressure. She did have pain around her right femoral site where her sheath was however Fem stop has been removed and currently more has pain from her left hip site. Creatinine stable. Blood pressures borderline in the 90s over 60s and mildly tachycardic. No beta cayden has been added given borderline blood pressures. PHYSICAL EXAMINATION Vitals reviewed CONSTITUTIONAL: No apparent distress. HEENT: Head is normocephalic. Pupils are equal, round. Sclerae anicteric. Mucous membranes of the mouth are moist. CHEST EXAMINATION: Lungs are clear to auscultation. HEART EXAMINATION: Regular rate and rhythm. S1, S2 heard. EXTREMITIES: 2+ peripheral pulses, no lower extremity edema and no calf tenderness. NEUROLOGIC EXAMINATION: Patient is awake, alert and oriented x3. ASSESSMENT Inferiorlateral STEMI with PCI ramus Status post left anterior total hip arthroplasty on 12/17 Coronary artery disease status post PCI in 2007 Hypothyroidism Hypertension Dyslipidemia PLAN Continue dual antiplatelets with aspirin and Plavix. Monitor for any bleeding. Check 2-D echo. Add low-dose metoprolol 12.5 mg twice a day. Monitor for any arrhythmias. Continue supportive care. Further recommendations to follow. Objective - Vital Signs Vital signs: Vital Signs Temp 97.4 F L 12/18/21 08:00 Pulse 91 12/18/21 13:00 Resp 26 H 12/18/21 13:00 BP 87/45 12/18/21 13:00 Pulse Ox 99 12/18/21 13:00 FiO2 35 12/18/21 11:13 Intake & Output 12/17/21 12/18/21 12/18/21 18:59 06:59 18:59 Intake Total 5642.721 2370.629 555.521 Output Total 1500 1205 310 Balance 4142.721 1165.629 245.521 Weight 72.6 kg 79.3 kg Intake: IV 5626 1925 385 Potassium Chloride 10 meq 300 1100 100 In Water For Injection 1 100ml.bag @ 100 mls/hr IVPB Q1HR [facility] Rx#: [id number] Sodium Chloride 0.9% 1, 225 825 285 000 ml @ 20 mls/hr IV . Q24H [facility] Rx#:[id number] ceFAZolin 2 gm In Sodium 50 Chloride 0.9% 50 ml @ 100 mls/hr IVPB ONCE PRN Rx# :[id number] Intake, IV Titration 16.721 445.629 170.521 Amount Insulin Regular 100 unit 3.872 43.287 5.268 In Sodium Chloride 0.9% 100 ml @ Per Protocol IV .Q0M [facility] Rx#:[id number] Norepinephrine 4 mg In 286.732 96.536 Sodium Chloride 0.9% 250 ml @ 0.05 MCG/KG/MIN 13. 83 mls/hr IV .[id number] [facility] Rx#:[id number] propofoL 1,000 mg In 12.849 115.610 68.717 Empty Bag 1 bag @ 10 MCG/ KG/MIN 4.356 mls/hr IV . [id number] [facility] Rx#:[id number] Output: Urine 1400 1205 310 Estimated Blood Loss 100 Other: Voiding Method Indwelling Catheter Indwelling Catheter Indwelling Catheter ABP, PAP, CO, CI - Last Documented Arterial Blood Pressure 106/50 - Labs CBC & Chem 7: 12/18/21 06:15 12/18/21 06:15 Labs: Abnormal Lab Results - Last 24 Hours (Table) 12/17/21 12/17/21 12/17/21 Range/Units 13:43 14:23 14:53 WBC (3.8-10.6) k/uL RBC 2.52 L (3.80-5.40) m/uL Hgb 7.6 L (11.4-16.0) gm/dL Hct 23.6 L (34.0-46.0) % Neutrophils # 10.1 H (1.3-7.7) k/uL Lymphocytes # 0.3 L (1.0-4.8) k/uL Monocytes # (0-1.0) k/uL ABG pH (7.35-7.45) ABG pCO2 (35-45) mmHg ABG pO2 (83-108) mmHg ABG HCO3 (21-25) mmol/L ABG Total CO2 (19-24) mmol/L ABG O2 Saturation (94-97) % ABG Hematocrit (34.0-46.0) % Hemoglobin (11.4-16.0) gm/dL Sodium (137-145) mmol/L Potassium (3.5-5.1) mmol/L Chloride (98-107) mmol/L Carbon Dioxide (22-30) mmol/L BUN (7-17) mg/dL Creatinine (0.52-1.04) mg/dL Glucose (74-99) mg/dL POC Glucose (mg/dL) 315 H 290 H (70-110) mg/dL Calcium (8.4-10.2) mg/dL Ionized Calcium Jan (4.5-5.3) mg/dL Magnesium (1.6-2.3) mg/dL AST (14-36) U/L ALT (4-34) U/L Alkaline Phosphatase (38-126) U/L Troponin I (0.000-0.034) ng/mL Total Protein (6.3-8.2) g/dL Albumin (3.5-5.0) g/dL Crossmatch 12/17/21 12/17/21 12/17/21 Range/Units 14:53 14:55 16:17 WBC (3.8-10.6) k/uL RBC (3.80-5.40) m/uL Hgb (11.4-16.0) gm/dL Hct (34.0-46.0) % Neutrophils # (1.3-7.7) k/uL Lymphocytes # (1.0-4.8) k/uL Monocytes # (0-1.0) k/uL ABG pH (7.35-7.45) ABG pCO2 (35-45) mmHg ABG pO2 (83-108) mmHg ABG HCO3 (21-25) mmol/L ABG Total CO2 (19-24) mmol/L ABG O2 Saturation (94-97) % ABG Hematocrit (34.0-46.0) % Hemoglobin (11.4-16.0) gm/dL Sodium (137-145) mmol/L Potassium 2.0 L* (3.5-5.1) mmol/L Chloride 116 H (98-107) mmol/L Carbon Dioxide 17 L (22-30) mmol/L BUN 18 H (7-17) mg/dL Creatinine 0.44 L (0.52-1.04) mg/dL Glucose 176 H (74-99) mg/dL POC Glucose (mg/dL) 125 H 350 H (70-110) mg/dL Calcium 5.2 L* (8.4-10.2) mg/dL Ionized Calcium Jan (4.5-5.3) mg/dL Magnesium (1.6-2.3) mg/dL AST (14-36) U/L ALT (4-34) U/L Alkaline Phosphatase (38-126) U/L Troponin I (0.000-0.034) ng/mL Total Protein (6.3-8.2) g/dL Albumin (3.5-5.0) g/dL Crossmatch 12/17/21 12/17/21 12/17/21 Range/Units 16:20 16:20 16:20 WBC 15.3 H (3.8-10.6) k/uL RBC 2.90 L (3.80-5.40) m/uL Hgb 8.7 L (11.4-16.0) gm/dL Hct 27.6 L (34.0-46.0) % Neutrophils # (1.3-7.7) k/uL Lymphocytes # (1.0-4.8) k/uL Monocytes # (0-1.0) k/uL ABG pH (7.35-7.45) ABG pCO2 (35-45) mmHg ABG pO2 (83-108) mmHg ABG HCO3 (21-25) mmol/L ABG Total CO2 (19-24) mmol/L ABG O2 Saturation (94-97) % ABG Hematocrit (34.0-46.0) % Hemoglobin (11.4-16.0) gm/dL Sodium 134 L (137-145) mmol/L Potassium (3.5-5.1) mmol/L Chloride 108 H (98-107) mmol/L Carbon Dioxide 13 L (22-30) mmol/L BUN 23 H (7-17) mg/dL Creatinine (0.52-1.04) mg/dL Glucose 370 H (74-99) mg/dL POC Glucose (mg/dL) (70-110) mg/dL Calcium 6.8 L (8.4-10.2) mg/dL Ionized Calcium Jan (4.5-5.3) mg/dL Magnesium 1.3 L (1.6-2.3) mg/dL AST (14-36) U/L ALT (4-34) U/L Alkaline Phosphatase (38-126) U/L Troponin I (0.000-0.034) ng/mL Total Protein (6.3-8.2) g/dL Albumin (3.5-5.0) g/dL Crossmatch See Detail 12/17/21 12/17/21 12/17/21 Range/Units 16:26 17:55 17:55 WBC 24.9 H (3.8-10.6) k/uL RBC 3.49 L (3.80-5.40) m/uL Hgb 10.4 L (11.4-16.0) gm/dL Hct 32.5 L (34.0-46.0) % Neutrophils # (1.3-7.7) k/uL Lymphocytes # (1.0-4.8) k/uL Monocytes # (0-1.0) k/uL ABG pH (7.35-7.45) ABG pCO2 (35-45) mmHg ABG pO2 (83-108) mmHg ABG HCO3 (21-25) mmol/L ABG Total CO2 (19-24) mmol/L ABG O2 Saturation (94-97) % ABG Hematocrit (34.0-46.0) % Hemoglobin (11.4-16.0) gm/dL Sodium 135 L (137-145) mmol/L Potassium (3.5-5.1) mmol/L Chloride (98-107) mmol/L Carbon Dioxide 16 L (22-30) mmol/L BUN 21 H (7-17) mg/dL Creatinine (0.52-1.04) mg/dL Glucose 341 H (74-99) mg/dL POC Glucose (mg/dL) 407 H (70-110) mg/dL Calcium 7.6 L (8.4-10.2) mg/dL Ionized Calcium Jan (4.5-5.3) mg/dL Magnesium 1.2 L (1.6-2.3) mg/dL AST 114 H (14-36) U/L ALT 48 H (4-34) U/L Alkaline Phosphatase 140 H (38-126) U/L Troponin I (0.000-0.034) ng/mL Total Protein 5.5 L (6.3-8.2) g/dL Albumin 3.3 L (3.5-5.0) g/dL Crossmatch 12/17/21 12/17/21 12/17/21 Range/Units 17:55 17:55 18:05 WBC (3.8-10.6) k/uL RBC (3.80-5.40) m/uL Hgb (11.4-16.0) gm/dL Hct (34.0-46.0) % Neutrophils # (1.3-7.7) k/uL Lymphocytes # (1.0-4.8) k/uL Monocytes # (0-1.0) k/uL ABG pH 7.27 L (7.35-7.45) ABG pCO2 (35-45) mmHg ABG pO2 243 H (83-108) mmHg ABG HCO3 18 L (21-25) mmol/L ABG Total CO2 (19-24) mmol/L ABG O2 Saturation 98.2 H (94-97) % ABG Hematocrit 33 L (34.0-46.0) % Hemoglobin 10.6 L (11.4-16.0) gm/dL Sodium (137-145) mmol/L Potassium (3.5-5.1) mmol/L Chloride (98-107) mmol/L Carbon Dioxide (22-30) mmol/L BUN (7-17) mg/dL Creatinine (0.52-1.04) mg/dL Glucose (74-99) mg/dL POC Glucose (mg/dL) 361 H (70-110) mg/dL Calcium (8.4-10.2) mg/dL Ionized Calcium Jan (4.5-5.3) mg/dL Magnesium (1.6-2.3) mg/dL AST (14-36) U/L ALT (4-34) U/L Alkaline Phosphatase (38-126) U/L Troponin I 12.400 H* (0.000-0.034) ng/mL Total Protein (6.3-8.2) g/dL Albumin (3.5-5.0) g/dL Crossmatch 12/17/21 12/17/21 12/17/21 Range/Units 18:31 18:53 20:08 WBC (3.8-10.6) k/uL RBC (3.80-5.40) m/uL Hgb (11.4-16.0) gm/dL Hct (34.0-46.0) % Neutrophils # (1.3-7.7) k/uL Lymphocytes # (1.0-4.8) k/uL Monocytes # (0-1.0) k/uL ABG pH (7.35-7.45) ABG pCO2 (35-45) mmHg ABG pO2 (83-108) mmHg ABG HCO3 (21-25) mmol/L ABG Total CO2 (19-24) mmol/L ABG O2 Saturation (94-97) % ABG Hematocrit (34.0-46.0) % Hemoglobin (11.4-16.0) gm/dL Sodium (137-145) mmol/L Potassium (3.5-5.1) mmol/L Chloride (98-107) mmol/L Carbon Dioxide (22-30) mmol/L BUN (7-17) mg/dL Creatinine (0.52-1.04) mg/dL Glucose (74-99) mg/dL POC Glucose (mg/dL) 397 H 369 H 282 H (70-110) mg/dL Calcium (8.4-10.2) mg/dL Ionized Calcium Jan (4.5-5.3) mg/dL Magnesium (1.6-2.3) mg/dL AST (14-36) U/L ALT (4-34) U/L Alkaline Phosphatase (38-126) U/L Troponin I (0.000-0.034) ng/mL Total Protein (6.3-8.2) g/dL Albumin (3.5-5.0) g/dL Crossmatch 12/17/21 12/17/21 12/17/21 Range/Units 21:01 22:09 22:56 WBC (3.8-10.6) k/uL RBC (3.80-5.40) m/uL Hgb (11.4-16.0) gm/dL Hct (34.0-46.0) % Neutrophils # (1.3-7.7) k/uL Lymphocytes # (1.0-4.8) k/uL Monocytes # (0-1.0) k/uL ABG pH (7.35-7.45) ABG pCO2 (35-45) mmHg ABG pO2 (83-108) mmHg ABG HCO3 (21-25) mmol/L ABG Total CO2 (19-24) mmol/L ABG O2 Saturation (94-97) % ABG Hematocrit (34.0-46.0) % Hemoglobin (11.4-16.0) gm/dL Sodium (137-145) mmol/L Potassium (3.5-5.1) mmol/L Chloride (98-107) mmol/L Carbon Dioxide (22-30) mmol/L BUN (7-17) mg/dL Creatinine (0.52-1.04) mg/dL Glucose (74-99) mg/dL POC Glucose (mg/dL) 248 H 231 H 225 H (70-110) mg/dL Calcium (8.4-10.2) mg/dL Ionized Calcium Jan (4.5-5.3) mg/dL Magnesium (1.6-2.3) mg/dL AST (14-36) U/L ALT (4-34) U/L Alkaline Phosphatase (38-126) U/L Troponin I (0.000-0.034) ng/mL Total Protein (6.3-8.2) g/dL Albumin (3.5-5.0) g/dL Crossmatch 12/17/21 12/18/21 12/18/21 Range/Units 23:43 00:05 01:08 WBC (3.8-10.6) k/uL RBC (3.80-5.40) m/uL Hgb (11.4-16.0) gm/dL Hct (34.0-46.0) % Neutrophils # (1.3-7.7) k/uL Lymphocytes # (1.0-4.8) k/uL Monocytes # (0-1.0) k/uL ABG pH (7.35-7.45) ABG pCO2 (35-45) mmHg ABG pO2 (83-108) mmHg ABG HCO3 (21-25) mmol/L ABG Total CO2 (19-24) mmol/L ABG O2 Saturation (94-97) % ABG Hematocrit (34.0-46.0) % Hemoglobin (11.4-16.0) gm/dL Sodium (137-145) mmol/L Potassium 3.2 L (3.5-5.1) mmol/L Chloride 108 H (98-107) mmol/L Carbon Dioxide (22-30) mmol/L BUN 20 H (7-17) mg/dL Creatinine (0.52-1.04) mg/dL Glucose 144 H (74-99) mg/dL POC Glucose (mg/dL) 147 H 189 H (70-110) mg/dL Calcium 7.5 L (8.4-10.2) mg/dL Ionized Calcium Jan (4.5-5.3) mg/dL Magnesium (1.6-2.3) mg/dL AST 205 H (14-36) U/L ALT 61 H (4-34) U/L Alkaline Phosphatase (38-126) U/L Troponin I (0.000-0.034) ng/mL Total Protein 5.0 L (6.3-8.2) g/dL Albumin 2.9 L (3.5-5.0) g/dL Crossmatch 12/18/21 12/18/21 12/18/21 Range/Units 02:22 03:06 05:17 WBC (3.8-10.6) k/uL RBC (3.80-5.40) m/uL Hgb (11.4-16.0) gm/dL Hct (34.0-46.0) % Neutrophils # (1.3-7.7) k/uL Lymphocytes # (1.0-4.8) k/uL Monocytes # (0-1.0) k/uL ABG pH (7.35-7.45) ABG pCO2 (35-45) mmHg ABG pO2 (83-108) mmHg ABG HCO3 (21-25) mmol/L ABG Total CO2 (19-24) mmol/L ABG O2 Saturation (94-97) % ABG Hematocrit (34.0-46.0) % Hemoglobin (11.4-16.0) gm/dL Sodium (137-145) mmol/L Potassium (3.5-5.1) mmol/L Chloride (98-107) mmol/L Carbon Dioxide (22-30) mmol/L BUN (7-17) mg/dL Creatinine (0.52-1.04) mg/dL Glucose (74-99) mg/dL POC Glucose (mg/dL) 126 H 133 H 117 H (70-110) mg/dL Calcium (8.4-10.2) mg/dL Ionized Calcium Jan (4.5-5.3) mg/dL Magnesium (1.6-2.3) mg/dL AST (14-36) U/L ALT (4-34) U/L Alkaline Phosphatase (38-126) U/L Troponin I (0.000-0.034) ng/mL Total Protein (6.3-8.2) g/dL Albumin (3.5-5.0) g/dL Crossmatch 12/18/21 12/18/21 12/18/21 Range/Units 05:20 06:14 06:15 WBC 18.7 H (3.8-10.6) k/uL RBC 2.98 L (3.80-5.40) m/uL Hgb 9.1 L (11.4-16.0) gm/dL Hct 26.6 L (34.0-46.0) % Neutrophils # 16.0 H (1.3-7.7) k/uL Lymphocytes # (1.0-4.8) k/uL Monocytes # 1.1 H (0-1.0) k/uL ABG pH 7.48 H (7.35-7.45) ABG pCO2 32 L (35-45) mmHg ABG pO2 223 H (83-108) mmHg ABG HCO3 (21-25) mmol/L ABG Total CO2 25 H (19-24) mmol/L ABG O2 Saturation 98.1 H (94-97) % ABG Hematocrit 28 L (34.0-46.0) % Hemoglobin 9.2 L (11.4-16.0) gm/dL Sodium (137-145) mmol/L Potassium (3.5-5.1) mmol/L Chloride (98-107) mmol/L Carbon Dioxide (22-30) mmol/L BUN (7-17) mg/dL Creatinine (0.52-1.04) mg/dL Glucose (74-99) mg/dL POC Glucose (mg/dL) 164 H (70-110) mg/dL Calcium (8.4-10.2) mg/dL Ionized Calcium Jan (4.5-5.3) mg/dL Magnesium (1.6-2.3) mg/dL AST (14-36) U/L ALT (4-34) U/L Alkaline Phosphatase (38-126) U/L Troponin I (0.000-0.034) ng/mL Total Protein (6.3-8.2) g/dL Albumin (3.5-5.0) g/dL Crossmatch 12/18/21 12/18/21 12/18/21 Range/Units 06:15 06:15 06:15 WBC (3.8-10.6) k/uL RBC (3.80-5.40) m/uL Hgb (11.4-16.0) gm/dL Hct (34.0-46.0) % Neutrophils # (1.3-7.7) k/uL Lymphocytes # (1.0-4.8) k/uL Monocytes # (0-1.0) k/uL ABG pH (7.35-7.45) ABG pCO2 (35-45) mmHg ABG pO2 (83-108) mmHg ABG HCO3 (21-25) mmol/L ABG Total CO2 (19-24) mmol/L ABG O2 Saturation (94-97) % ABG Hematocrit (34.0-46.0) % Hemoglobin (11.4-16.0) gm/dL Sodium (137-145) mmol/L Potassium (3.5-5.1) mmol/L Chloride 108 H (98-107) mmol/L Carbon Dioxide (22-30) mmol/L BUN 20 H (7-17) mg/dL Creatinine (0.52-1.04) mg/dL Glucose 137 H (74-99) mg/dL POC Glucose (mg/dL) (70-110) mg/dL Calcium 7.4 L (8.4-10.2) mg/dL Ionized Calcium Jan 4.4 L (4.5-5.3) mg/dL Magnesium (1.6-2.3) mg/dL AST 187 H (14-36) U/L ALT 55 H (4-34) U/L Alkaline Phosphatase (38-126) U/L Troponin I 47.400 H* (0.000-0.034) ng/mL Total Protein 4.8 L (6.3-8.2) g/dL Albumin 2.8 L (3.5-5.0) g/dL Crossmatch 12/18/21 Range/Units 06:59 WBC (3.8-10.6) k/uL RBC (3.80-5.40) m/uL Hgb (11.4-16.0) gm/dL Hct (34.0-46.0) % Neutrophils # (1.3-7.7) k/uL Lymphocytes # (1.0-4.8) k/uL Monocytes # (0-1.0) k/uL ABG pH (7.35-7.45) ABG pCO2 (35-45) mmHg ABG pO2 (83-108) mmHg ABG HCO3 (21-25) mmol/L ABG Total CO2 (19-24) mmol/L ABG O2 Saturation (94-97) % ABG Hematocrit (34.0-46.0) % Hemoglobin (11.4-16.0) gm/dL Sodium (137-145) mmol/L Potassium (3.5-5.1) mmol/L Chloride (98-107) mmol/L Carbon Dioxide (22-30) mmol/L BUN (7-17) mg/dL Creatinine (0.52-1.04) mg/dL Glucose (74-99) mg/dL POC Glucose (mg/dL) 153 H (70-110) mg/dL Calcium (8.4-10.2) mg/dL Ionized Calcium Jan (4.5-5.3) mg/dL Magnesium (1.6-2.3) mg/dL AST (14-36) U/L ALT (4-34) U/L Alkaline Phosphatase (38-126) U/L Troponin I (0.000-0.034) ng/mL Total Protein (6.3-8.2) g/dL Albumin (3.5-5.0) g/dL Crossmatch
[2021-12-18] MEDS: HEPARIN SODIUM,PORCINE/PF 5,000 UNIT/0.5 ML SYRINGE SQ SCH ×2 (14:04→20:40)
[2021-12-18] MEDS: METOPROLOL TARTRATE 12.5 MG TAB PO SCH ×2 (14:14→21:08)
[2021-12-18] MEDS: ALPRAZolam 0.5 MG TAB PO PRN (14:15)
[2021-12-18] MEDS: HYDROcodone/APAP 5-325MG 1 EACH TAB PO PRN ×2 (14:15→23:09)
[2021-12-18 16:54] LABS: Glucose,Whole Blood 258 mg/dL (70-110)
[2021-12-18] MEDS: INSULIN ASPART (NovoLOG) 100 UNIT/ML VIAL SQ SCH ×2 (16:56→20:41)
[2021-12-18 20:38] LABS: Glucose,Whole Blood 332 mg/dL (70-110)
[2021-12-18] MEDS: ATORVASTATIN 80 MG TAB PO SCH (20:40)
[2021-12-18] MEDS: SENNOSIDES-DOCUSATE SODIUM 1 EACH TAB PO SCH (20:40)
[2021-12-19] MEDS: HYDROmorphone 0.5 MG/0.5 ML SYRINGE IVP PRN (00:11)
--- NOTE | 2021-12-19 01:23 | P.CONS ---
History of Present Illness - Reason for Consult Consult date: 12/18/21 Medical management - Chief Complaint Status post left total hip arthroplasty - History of Present Illness Patient is a 66-year-old female with a known history of coronary artery disease and previous stent placement in 2007, hypertension, diabetes type 2 insulin- dependent, hypertension, osteoarthritis was admitted to hospital for elective left total hip arthroplasty. While in the recovery room patient felt sudden onset of severe mid retrosternal and left-sided chest pain associated with nause a and diaphoresis. EKG showed ST elevation in the anterolateral leads and patient was immediately taken to cardiac catheterization and underwent PTCA and stenting of a totally occluded high up to small marginal/ramus intermedius branch with a drug-eluting stent and PTCA of previously stented LAD in the setting of hypotension. Preoperatively patient required intubation and pressor support with norepinephrine and a dopamine. Patient was transferred to MICU. Patient states that she had stress test about 6 months ago by her data operations manager. Chest x-ray this morning showed advancement of 9 cm above the NG tube is recommended for optimal placement Katei recommendation from 1 day prior. Similar multifocal opacities given differences in technique. Patient was subsequently extubated today morning. Blood sugars are slightly elevated. Laboratory data showed sodium 137 potassium 3.2 chloride 108 BUN 22, creatinine 0.72 and blood sugar 144 this morning. Patient is on 0.5 AST 205 ALT 61 alk phos 115 and albumin 2.9 Review of Systems Constitutional: Patient denies any fever or chills . no Generalized weakness. Abdomen: Patient denied any nausea or vomiting or abd. pain Cardiovascular: Patient denies any chest pain or short of breath no palpitations. Respiratory: patient denied any cough is from production. No shortness of breath Neurologic: Patient denied any numbness or tingling headache. Musculoskeletal: Patient denies any complaints of joint swelling or deformity. Skin: Negative Psychiatric: Negative Endocrine: No heat or cold intolerance. No recent weight gain. Genitourinary: No dysuria or hematuria. All other 14 point ROS negative except the above Past Medical History Past Medical History: Coronary Artery Disease (CAD), Diabetes Mellitus, Hyperlipidemia, Hypertension, Osteoarthritis (OA) History of Any Multi-Drug Resistant Organisms: None Reported Past Surgical History: Heart Catheterization With Stent Additional Past Surgical History / Comment(s): fatty tumors removed x 2. DENTAL SURGERY Past Anesthesia/Blood Transfusion Reactions: Motion Sickness, Postoperative Nausea & Vomiting (PONV) Date of Last Stent Placement:: 2007 Past Psychological History: No Psychological Hx Reported Smoking Status: Never smoker Past Alcohol Use History: Occasional Past Drug Use History: None Reported - Past Family History Father Family Medical History: Cancer Medications and Allergies Home Medications Medication Instructions Recorded Confirmed Type Cholecalciferol (Vitamin D3) 2,000 unit PO DAILY 10/02/16 12/17/21 History [Vitamin D3] Clopidogrel Bisulfate [Plavix] 75 mg PO DAILY 10/02/16 12/17/21 History HYDROcodone/APAP 10-325MG [[place] 1 tab PO Q6H PRN #15 tab 10/02/16 12/17/21 Rx 10-325] INSULIN LISPRO (HumaLOG) [HumaLOG] 4 units SQ BID 10/02/16 12/17/21 History Insulin Glargine [Lantus] 15 unit SQ HS 10/02/16 12/17/21 History Levothyroxine Sodium [Synthroid] 112 mcg PO DAILY 10/02/16 12/17/21 History Losartan Potassium [Cozaar] 50 mg PO DAILY 10/02/16 12/17/21 History hydroCHLOROthiazide 25 mg PO DAILY 10/02/16 12/17/21 History Aspirin EC [Ecotrin Low Dose] 81 mg PO DAILY 12/15/21 12/17/21 History Biotin [Biotin Disolve] 5,000 mcg PO DAILY 12/15/21 12/17/21 History Cyanocobalamin (Vitamin B-12) 2,500 mcg PO DAILY 12/15/21 12/17/21 History [Vitamin B-12] INSULIN LISPRO (humaLOG) [HumaLOG] 6 unit SQ AC-SUPPER 12/15/21 12/17/21 History Ibuprofen [Motrin] 800 mg PO Q8H PRN 12/15/21 12/17/21 History Pravastatin Sodium [Pravachol] 40 mg PO HS 12/15/21 12/17/21 History Aspirin 81 mg PO BID 30 Days #60 tab 12/17/21 Rx Diclofenac Sodium [Voltaren] 75 mg PO BID 30 Days #60 tab 12/17/21 Rx Docusate [Colace] 100 mg PO BID #60 capsule 12/17/21 Rx HYDROcodone/APAP 7.5-325MG [[place] 1 - 2 tab PO Q6HR PRN 7 Days #32 09/09/22 Rx 7.5-325] tab Omeprazole 40 mg PO DAILY 30 Days #30 cap 12/17/21 Rx Allergies Allergy/AdvReac Type Severity Reaction Status Date / Time codeine Allergy Swelling Verified 12/17/21 09:13 Physical Exam Vitals: Vital Signs Temp Pulse Pulse Resp BP BP Pulse Ox 12/18/21 12:00 85 14 93/57 100 12/18/21 11:13 12/18/21 11:00 98 15 104/59 100 12/18/21 10:00 80 16 89/53 100 12/18/21 09:00 89 20 115/63 99 12/18/21 08:22 12/18/21 08:13 12/18/21 08:00 97.4 F L 77 31 H 100/56 100 12/18/21 07:46 12/18/21 07:00 70 16 100/59 100 12/18/21 06:00 72 16 95/76 100 12/18/21 05:46 12/18/21 05:00 89 22 83/54 100 12/18/21 04:42 12/18/21 04:00 97.9 F 64 16 84/54 100 12/18/21 03:52 12/18/21 03:00 64 16 106/62 100 12/18/21 02:00 71 16 94/59 100 12/18/21 01:00 64 16 90/62 100 12/18/21 00:28 12/18/21 00:12 97.7 F 66 16 90/62 99 12/18/21 00:00 67 16 88/58 99 12/17/21 23:00 67 16 91/60 99 12/17/21 22:00 68 16 90/49 99 12/17/21 21:00 75 16 89/63 100 12/17/21 20:00 97.5 F L 73 16 91/65 100 12/17/21 19:24 12/17/21 19:00 99 16 91/65 91 L 12/17/21 18:51 12/17/21 18:45 95 15 97/80 94 L 12/17/21 18:30 103 H 22 92 L 12/17/21 18:17 12/17/21 18:15 89 22 100 12/17/21 18:00 92 21 99 12/17/21 17:45 101 H 12 112/82 98 12/17/21 17:41 12/17/21 17:33 91 12 91 L 12/17/21 16:21 12/17/21 14:25 61 18 79/48 99 12/17/21 14:10 75 18 87/57 98 12/17/21 13:55 72 16 119/58 99 12/17/21 13:38 75 16 117/59 96 12/17/21 13:22 98.3 F 89 16 135/65 99 FiO2 12/18/21 12:00 12/18/21 11:13 35 12/18/21 11:00 12/18/21 10:00 12/18/21 09:00 12/18/21 08:22 35 12/18/21 08:13 35 12/18/21 08:00 35 12/18/21 07:46 35 12/18/21 07:00 12/18/21 06:00 12/18/21 05:46 35 12/18/21 05:00 12/18/21 04:42 50 12/18/21 04:00 50 12/18/21 03:52 50 12/18/21 03:00 12/18/21 02:00 12/18/21 01:00 12/18/21 00:28 50 12/18/21 00:12 12/18/21 00:00 50 12/17/21 23:00 12/17/21 22:00 12/17/21 21:00 12/17/21 20:00 50 12/17/21 19:24 50 12/17/21 19:00 50 12/17/21 18:51 50 12/17/21 18:45 12/17/21 18:30 12/17/21 18:17 50 12/17/21 18:15 12/17/21 18:00 12/17/21 17:45 12/17/21 17:41 100 12/17/21 17:33 12/17/21 16:21 100 12/17/21 14:25 12/17/21 14:10 12/17/21 13:55 12/17/21 13:38 12/17/21 13:22 Intake and Output 12/17/21 12/18/21 12/18/21 22:59 06:59 14:59 Intake Total 3293.576 1768.774 555.521 Output Total 2125 480 310 Balance 8070.384 0209.774 245.521 Intake: IV 3200 1400 385 Potassium Chloride 10 meq 600 800 100 In Water For Injection 1 100ml.bag @ 100 mls/hr IVPB Q1HR [facility] Rx#: [id number] Sodium Chloride 0.9% 1, 450 600 285 000 ml @ 20 mls/hr IV . Q24H [facility] Rx#:[id number] ceFAZolin 2 gm In Sodium 50 Chloride 0.9% 50 ml @ 100 mls/hr IVPB ONCE PRN Rx# :[id number] Intake, IV Titration 93.576 368.774 170.521 Amount Insulin Regular 100 unit 31.007 16.152 5.268 In Sodium Chloride 0.9% 100 ml @ Per Protocol IV .Q0M [facility] Rx#:[id number] Norepinephrine 4 mg In 32.732 254 96.536 Sodium Chloride 0.9% 250 ml @ 0.05 MCG/KG/MIN 13. 83 mls/hr IV .[id number] [facility] Rx#:[id number] propofoL 1,000 mg In 29.837 98.622 68.717 Empty Bag 1 bag @ 10 MCG/ KG/MIN 4.356 mls/hr IV . [id number] [facility] Rx#:[id number] Output: Urine 2125 480 310 Other: Voiding Method Indwelling Catheter Indwelling Catheter Indwelling Catheter Weight 72.6 kg 79.3 kg ABP, PAP, CO, CI - Last 8 Hours Arterial Blood Pressure 106/50 Arterial Blood Pressure 104/46 Arterial Blood Pressure 104/48 Arterial Blood Pressure 126/59 PHYSICAL EXAMINATION: Patient is lying in the bed comfortably, no acute distress, awake alert and oriented.. HEENT: Normocephalic. Neck is supple. Pupils reactive. Nostrils clear. Oral cavity is moist. Neck reveals no JVD, carotid bruits, or thyromegaly. CHEST EXAMINATION: Trachea is central. Symmetrical expansion. Bibasilar diminished sounds.Lung almanza clear to auscultation and percussion. CARDIAC: Normal S1, S2 with no gallops. No murmurs ABDOMEN: Soft. Bowel sounds present. Nontender. No organomegaly. No abdominal bruits. Extremities: reveal no edema. No clubbing or cyanosis Neurologically awake, alert, oriented x3 with well-coordinated movements. No focal deficits noted Skin: No rash or skin lesions. Psychiatric: Coperative. Nonsuicidal, Musculoskeletal: No joint swelling or deformity. Normal range of motion. Results CBC & Chem 7: 12/18/21 06:15 12/18/21 06:15 Labs: Abnormal Lab Results - Last 24 Hours (Table) 12/17/21 12/17/21 12/17/21 Range/Units 13:43 14:23 14:53 WBC (3.8-10.6) k/uL RBC 2.52 L (3.80-5.40) m/uL Hgb 7.6 L (11.4-16.0) gm/dL Hct 23.6 L (34.0-46.0) % Neutrophils # 10.1 H (1.3-7.7) k/uL Lymphocytes # 0.3 L (1.0-4.8) k/uL Monocytes # (0-1.0) k/uL ABG pH (7.35-7.45) ABG pCO2 (35-45) mmHg ABG pO2 (83-108) mmHg ABG HCO3 (21-25) mmol/L ABG Total CO2 (19-24) mmol/L ABG O2 Saturation (94-97) % ABG Hematocrit (34.0-46.0) % Hemoglobin (11.4-16.0) gm/dL Sodium (137-145) mmol/L Potassium (3.5-5.1) mmol/L Chloride (98-107) mmol/L Carbon Dioxide (22-30) mmol/L BUN (7-17) mg/dL Creatinine (0.52-1.04) mg/dL Glucose (74-99) mg/dL POC Glucose (mg/dL) 315 H 290 H (70-110) mg/dL Calcium (8.4-10.2) mg/dL Ionized Calcium Jan (4.5-5.3) mg/dL Magnesium (1.6-2.3) mg/dL AST (14-36) U/L ALT (4-34) U/L Alkaline Phosphatase (38-126) U/L Troponin I (0.000-0.034) ng/mL Total Protein (6.3-8.2) g/dL Albumin (3.5-5.0) g/dL Crossmatch 12/17/21 12/17/21 12/17/21 Range/Units 14:53 14:55 16:17 WBC (3.8-10.6) k/uL RBC (3.80-5.40) m/uL Hgb (11.4-16.0) gm/dL Hct (34.0-46.0) % Neutrophils # (1.3-7.7) k/uL Lymphocytes # (1.0-4.8) k/uL Monocytes # (0-1.0) k/uL ABG pH (7.35-7.45) ABG pCO2 (35-45) mmHg ABG pO2 (83-108) mmHg ABG HCO3 (21-25) mmol/L ABG Total CO2 (19-24) mmol/L ABG O2 Saturation (94-97) % ABG Hematocrit (34.0-46.0) % Hemoglobin (11.4-16.0) gm/dL Sodium (137-145) mmol/L Potassium 2.0 L* (3.5-5.1) mmol/L Chloride 116 H (98-107) mmol/L Carbon Dioxide 17 L (22-30) mmol/L BUN 18 H (7-17) mg/dL Creatinine 0.44 L (0.52-1.04) mg/dL Glucose 176 H (74-99) mg/dL POC Glucose (mg/dL) 125 H 350 H (70-110) mg/dL Calcium 5.2 L* (8.4-10.2) mg/dL Ionized Calcium Jan (4.5-5.3) mg/dL Magnesium (1.6-2.3) mg/dL AST (14-36) U/L ALT (4-34) U/L Alkaline Phosphatase (38-126) U/L Troponin I (0.000-0.034) ng/mL Total Protein (6.3-8.2) g/dL Albumin (3.5-5.0) g/dL Crossmatch 12/17/21 12/17/21 12/17/21 Range/Units 16:20 16:20 16:20 WBC 15.3 H (3.8-10.6) k/uL RBC 2.90 L (3.80-5.40) m/uL Hgb 8.7 L (11.4-16.0) gm/dL Hct 27.6 L (34.0-46.0) % Neutrophils # (1.3-7.7) k/uL Lymphocytes # (1.0-4.8) k/uL Monocytes # (0-1.0) k/uL ABG pH (7.35-7.45) ABG pCO2 (35-45) mmHg ABG pO2 (83-108) mmHg ABG HCO3 (21-25) mmol/L ABG Total CO2 (19-24) mmol/L ABG O2 Saturation (94-97) % ABG Hematocrit (34.0-46.0) % Hemoglobin (11.4-16.0) gm/dL Sodium 134 L (137-145) mmol/L Potassium (3.5-5.1) mmol/L Chloride 108 H (98-107) mmol/L Carbon Dioxide 13 L (22-30) mmol/L BUN 23 H (7-17) mg/dL Creatinine (0.52-1.04) mg/dL Glucose 370 H (74-99) mg/dL POC Glucose (mg/dL) (70-110) mg/dL Calcium 6.8 L (8.4-10.2) mg/dL Ionized Calcium Jan (4.5-5.3) mg/dL Magnesium 1.3 L (1.6-2.3) mg/dL AST (14-36) U/L ALT (4-34) U/L Alkaline Phosphatase (38-126) U/L Troponin I (0.000-0.034) ng/mL Total Protein (6.3-8.2) g/dL Albumin (3.5-5.0) g/dL Crossmatch See Detail 12/17/21 12/17/21 12/17/21 Range/Units 16:26 17:55 17:55 WBC 24.9 H (3.8-10.6) k/uL RBC 3.49 L (3.80-5.40) m/uL Hgb 10.4 L (11.4-16.0) gm/dL Hct 32.5 L (34.0-46.0) % Neutrophils # (1.3-7.7) k/uL Lymphocytes # (1.0-4.8) k/uL Monocytes # (0-1.0) k/uL ABG pH (7.35-7.45) ABG pCO2 (35-45) mmHg ABG pO2 (83-108) mmHg ABG HCO3 (21-25) mmol/L ABG Total CO2 (19-24) mmol/L ABG O2 Saturation (94-97) % ABG Hematocrit (34.0-46.0) % Hemoglobin (11.4-16.0) gm/dL Sodium 135 L (137-145) mmol/L Potassium (3.5-5.1) mmol/L Chloride (98-107) mmol/L Carbon Dioxide 16 L (22-30) mmol/L BUN 21 H (7-17) mg/dL Creatinine (0.52-1.04) mg/dL Glucose 341 H (74-99) mg/dL POC Glucose (mg/dL) 407 H (70-110) mg/dL Calcium 7.6 L (8.4-10.2) mg/dL Ionized Calcium Jan (4.5-5.3) mg/dL Magnesium 1.2 L (1.6-2.3) mg/dL AST 114 H (14-36) U/L ALT 48 H (4-34) U/L Alkaline Phosphatase 140 H (38-126) U/L Troponin I (0.000-0.034) ng/mL Total Protein 5.5 L (6.3-8.2) g/dL Albumin 3.3 L (3.5-5.0) g/dL Crossmatch 12/17/21 12/17/21 12/17/21 Range/Units 17:55 17:55 18:05 WBC (3.8-10.6) k/uL RBC (3.80-5.40) m/uL Hgb (11.4-16.0) gm/dL Hct (34.0-46.0) % Neutrophils # (1.3-7.7) k/uL Lymphocytes # (1.0-4.8) k/uL Monocytes # (0-1.0) k/uL ABG pH 7.27 L (7.35-7.45) ABG pCO2 (35-45) mmHg ABG pO2 243 H (83-108) mmHg ABG HCO3 18 L (21-25) mmol/L ABG Total CO2 (19-24) mmol/L ABG O2 Saturation 98.2 H (94-97) % ABG Hematocrit 33 L (34.0-46.0) % Hemoglobin 10.6 L (11.4-16.0) gm/dL Sodium (137-145) mmol/L Potassium (3.5-5.1) mmol/L Chloride (98-107) mmol/L Carbon Dioxide (22-30) mmol/L BUN (7-17) mg/dL Creatinine (0.52-1.04) mg/dL Glucose (74-99) mg/dL POC Glucose (mg/dL) 361 H (70-110) mg/dL Calcium (8.4-10.2) mg/dL Ionized Calcium Jan (4.5-5.3) mg/dL Magnesium (1.6-2.3) mg/dL AST (14-36) U/L ALT (4-34) U/L Alkaline Phosphatase (38-126) U/L Troponin I 12.400 H* (0.000-0.034) ng/mL Total Protein (6.3-8.2) g/dL Albumin (3.5-5.0) g/dL Crossmatch 12/17/21 12/17/21 12/17/21 Range/Units 18:31 18:53 20:08 WBC (3.8-10.6) k/uL RBC (3.80-5.40) m/uL Hgb (11.4-16.0) gm/dL Hct (34.0-46.0) % Neutrophils # (1.3-7.7) k/uL Lymphocytes # (1.0-4.8) k/uL Monocytes # (0-1.0) k/uL ABG pH (7.35-7.45) ABG pCO2 (35-45) mmHg ABG pO2 (83-108) mmHg ABG HCO3 (21-25) mmol/L ABG Total CO2 (19-24) mmol/L ABG O2 Saturation (94-97) % ABG Hematocrit (34.0-46.0) % Hemoglobin (11.4-16.0) gm/dL Sodium (137-145) mmol/L Potassium (3.5-5.1) mmol/L Chloride (98-107) mmol/L Carbon Dioxide (22-30) mmol/L BUN (7-17) mg/dL Creatinine (0.52-1.04) mg/dL Glucose (74-99) mg/dL POC Glucose (mg/dL) 397 H 369 H 282 H (70-110) mg/dL Calcium (8.4-10.2) mg/dL Ionized Calcium Jan (4.5-5.3) mg/dL Magnesium (1.6-2.3) mg/dL AST (14-36) U/L ALT (4-34) U/L Alkaline Phosphatase (38-126) U/L Troponin I (0.000-0.034) ng/mL Total Protein (6.3-8.2) g/dL Albumin (3.5-5.0) g/dL Crossmatch 12/17/21 12/17/21 12/17/21 Range/Units 21:01 22:09 22:56 WBC (3.8-10.6) k/uL RBC (3.80-5.40) m/uL Hgb (11.4-16.0) gm/dL Hct (34.0-46.0) % Neutrophils # (1.3-7.7) k/uL Lymphocytes # (1.0-4.8) k/uL Monocytes # (0-1.0) k/uL ABG pH (7.35-7.45) ABG pCO2 (35-45) mmHg ABG pO2 (83-108) mmHg ABG HCO3 (21-25) mmol/L ABG Total CO2 (19-24) mmol/L ABG O2 Saturation (94-97) % ABG Hematocrit (34.0-46.0) % Hemoglobin (11.4-16.0) gm/dL Sodium (137-145) mmol/L Potassium (3.5-5.1) mmol/L Chloride (98-107) mmol/L Carbon Dioxide (22-30) mmol/L BUN (7-17) mg/dL Creatinine (0.52-1.04) mg/dL Glucose (74-99) mg/dL POC Glucose (mg/dL) 248 H 231 H 225 H (70-110) mg/dL Calcium (8.4-10.2) mg/dL Ionized Calcium Jan (4.5-5.3) mg/dL Magnesium (1.6-2.3) mg/dL AST (14-36) U/L ALT (4-34) U/L Alkaline Phosphatase (38-126) U/L Troponin I (0.000-0.034) ng/mL Total Protein (6.3-8.2) g/dL Albumin (3.5-5.0) g/dL Crossmatch 12/17/21 12/18/21 12/18/21 Range/Units 23:43 00:05 01:08 WBC (3.8-10.6) k/uL RBC (3.80-5.40) m/uL Hgb (11.4-16.0) gm/dL Hct (34.0-46.0) % Neutrophils # (1.3-7.7) k/uL Lymphocytes # (1.0-4.8) k/uL Monocytes # (0-1.0) k/uL ABG pH (7.35-7.45) ABG pCO2 (35-45) mmHg ABG pO2 (83-108) mmHg ABG HCO3 (21-25) mmol/L ABG Total CO2 (19-24) mmol/L ABG O2 Saturation (94-97) % ABG Hematocrit (34.0-46.0) % Hemoglobin (11.4-16.0) gm/dL Sodium (137-145) mmol/L Potassium 3.2 L (3.5-5.1) mmol/L Chloride 108 H (98-107) mmol/L Carbon Dioxide (22-30) mmol/L BUN 20 H (7-17) mg/dL Creatinine (0.52-1.04) mg/dL Glucose 144 H (74-99) mg/dL POC Glucose (mg/dL) 147 H 189 H (70-110) mg/dL Calcium 7.5 L (8.4-10.2) mg/dL Ionized Calcium Jan (4.5-5.3) mg/dL Magnesium (1.6-2.3) mg/dL AST 205 H (14-36) U/L ALT 61 H (4-34) U/L Alkaline Phosphatase (38-126) U/L Troponin I (0.000-0.034) ng/mL Total Protein 5.0 L (6.3-8.2) g/dL Albumin 2.9 L (3.5-5.0) g/dL Crossmatch 12/18/21 12/18/21 12/18/21 Range/Units 02:22 03:06 05:17 WBC (3.8-10.6) k/uL RBC (3.80-5.40) m/uL Hgb (11.4-16.0) gm/dL Hct (34.0-46.0) % Neutrophils # (1.3-7.7) k/uL Lymphocytes # (1.0-4.8) k/uL Monocytes # (0-1.0) k/uL ABG pH (7.35-7.45) ABG pCO2 (35-45) mmHg ABG pO2 (83-108) mmHg ABG HCO3 (21-25) mmol/L ABG Total CO2 (19-24) mmol/L ABG O2 Saturation (94-97) % ABG Hematocrit (34.0-46.0) % Hemoglobin (11.4-16.0) gm/dL Sodium (137-145) mmol/L Potassium (3.5-5.1) mmol/L Chloride (98-107) mmol/L Carbon Dioxide (22-30) mmol/L BUN (7-17) mg/dL Creatinine (0.52-1.04) mg/dL Glucose (74-99) mg/dL POC Glucose (mg/dL) 126 H 133 H 117 H (70-110) mg/dL Calcium (8.4-10.2) mg/dL Ionized Calcium Jan (4.5-5.3) mg/dL Magnesium (1.6-2.3) mg/dL AST (14-36) U/L ALT (4-34) U/L Alkaline Phosphatase (38-126) U/L Troponin I (0.000-0.034) ng/mL Total Protein (6.3-8.2) g/dL Albumin (3.5-5.0) g/dL Crossmatch 12/18/21 12/18/21 12/18/21 Range/Units 05:20 06:14 06:15 WBC 18.7 H (3.8-10.6) k/uL RBC 2.98 L (3.80-5.40) m/uL Hgb 9.1 L (11.4-16.0) gm/dL Hct 26.6 L (34.0-46.0) % Neutrophils # 16.0 H (1.3-7.7) k/uL Lymphocytes # (1.0-4.8) k/uL Monocytes # 1.1 H (0-1.0) k/uL ABG pH 7.48 H (7.35-7.45) ABG pCO2 32 L (35-45) mmHg ABG pO2 223 H (83-108) mmHg ABG HCO3 (21-25) mmol/L ABG Total CO2 25 H (19-24) mmol/L ABG O2 Saturation 98.1 H (94-97) % ABG Hematocrit 28 L (34.0-46.0) % Hemoglobin 9.2 L (11.4-16.0) gm/dL Sodium (137-145) mmol/L Potassium (3.5-5.1) mmol/L Chloride (98-107) mmol/L Carbon Dioxide (22-30) mmol/L BUN (7-17) mg/dL Creatinine (0.52-1.04) mg/dL Glucose (74-99) mg/dL POC Glucose (mg/dL) 164 H (70-110) mg/dL Calcium (8.4-10.2) mg/dL Ionized Calcium Jan (4.5-5.3) mg/dL Magnesium (1.6-2.3) mg/dL AST (14-36) U/L ALT (4-34) U/L Alkaline Phosphatase (38-126) U/L Troponin I (0.000-0.034) ng/mL Total Protein (6.3-8.2) g/dL Albumin (3.5-5.0) g/dL Crossmatch 12/18/21 12/18/21 12/18/21 Range/Units 06:15 06:15 06:15 WBC (3.8-10.6) k/uL RBC (3.80-5.40) m/uL Hgb (11.4-16.0) gm/dL Hct (34.0-46.0) % Neutrophils # (1.3-7.7) k/uL Lymphocytes # (1.0-4.8) k/uL Monocytes # (0-1.0) k/uL ABG pH (7.35-7.45) ABG pCO2 (35-45) mmHg ABG pO2 (83-108) mmHg ABG HCO3 (21-25) mmol/L ABG Total CO2 (19-24) mmol/L ABG O2 Saturation (94-97) % ABG Hematocrit (34.0-46.0) % Hemoglobin (11.4-16.0) gm/dL Sodium (137-145) mmol/L Potassium (3.5-5.1) mmol/L Chloride 108 H (98-107) mmol/L Carbon Dioxide (22-30) mmol/L BUN 20 H (7-17) mg/dL Creatinine (0.52-1.04) mg/dL Glucose 137 H (74-99) mg/dL POC Glucose (mg/dL) (70-110) mg/dL Calcium 7.4 L (8.4-10.2) mg/dL Ionized Calcium Jan 4.4 L (4.5-5.3) mg/dL Magnesium (1.6-2.3) mg/dL AST 187 H (14-36) U/L ALT 55 H (4-34) U/L Alkaline Phosphatase (38-126) U/L Troponin I 47.400 H* (0.000-0.034) ng/mL Total Protein 4.8 L (6.3-8.2) g/dL Albumin 2.8 L (3.5-5.0) g/dL Crossmatch 12/18/21 Range/Units 06:59 WBC (3.8-10.6) k/uL RBC (3.80-5.40) m/uL Hgb (11.4-16.0) gm/dL Hct (34.0-46.0) % Neutrophils # (1.3-7.7) k/uL Lymphocytes # (1.0-4.8) k/uL Monocytes # (0-1.0) k/uL ABG pH (7.35-7.45) ABG pCO2 (35-45) mmHg ABG pO2 (83-108) mmHg ABG HCO3 (21-25) mmol/L ABG Total CO2 (19-24) mmol/L ABG O2 Saturation (94-97) % ABG Hematocrit (34.0-46.0) % Hemoglobin (11.4-16.0) gm/dL Sodium (137-145) mmol/L Potassium (3.5-5.1) mmol/L Chloride (98-107) mmol/L Carbon Dioxide (22-30) mmol/L BUN (7-17) mg/dL Creatinine (0.52-1.04) mg/dL Glucose (74-99) mg/dL POC Glucose (mg/dL) 153 H (70-110) mg/dL Calcium (8.4-10.2) mg/dL Ionized Calcium Jna (4.5-5.3) mg/dL Magnesium (1.6-2.3) mg/dL AST (14-36) U/L ALT (4-34) U/L Alkaline Phosphatase (38-126) U/L Troponin I (0.000-0.034) ng/mL Total Protein (6.3-8.2) g/dL Albumin (3.5-5.0) g/dL Crossmatch Assessment and Plan Assessment: Acute ST elevated GA status postcardiac catheterization and stent placement to circumflex marginal branch Acute hypoxic respiratory failure secondary to acute GA and hypotension requiring mechanical ventilation. Currently extubated. Acute cardiogenic shock requiring pressor support. Currently off pressors Acute CHF with systolic function with pulmonary edema Status post left total hip arthroplasty postoperative day 1 Coronary disease history of stent placement to LAD in 2007 Hypertension Hyperlipidemia Diabetes type 2 insulin-dependent with hyperglycemia Osteoarthritis DVT prophylaxis Plan: Patient is status post cardiac catheterization and stent placement to circumflex marginal branch. Patient is currently extubated and off pressor support. Co ntinue with aspirin statins and Plavix and metoprolol was started. Cardiac telemetry monitoring. Current home medications and titrate insulin regimen for better blood sugar control. Patient is currently monitored in the MICU. Discussed with the patient and her at bedside in detail. Time with Patient: Greater than 30
[2021-12-19] MEDS: INSULIN DETEMIR (LEVEMIR) 100 UNIT/ML SYR SQ SCH ×2 (01:35→21:01)
[2021-12-19] MEDS ORDERED: BENZOCAINE/MENTHOL LOZENG 1 EACH LOZENGE MUCOUS MEM PRN (01:39)
[2021-12-19] MEDS: HYDROcodone/APAP 5-325MG 1 EACH TAB PO PRN ×4 (03:08→20:59)
[2021-12-19] MEDS: LEVOTHYROXINE 112 MCG TAB PO SCH (05:49)
[2021-12-19] MEDS: LACTATED RINGERS 1,000 ML IV SCH (05:53)
[2021-12-19 06:23] LABS: Basophils % (A) 0 %; Eosinophils # (A) 0.1 k/uL (0-0.7); Eosinophils % (A) 1 %; HCT 24.7 % (34.0-46.0); HGB 8.1 gm/dL (11.4-16.0); Lymphocytes # (A) 1.5 k/uL (1.0-4.8); Lymphocytes % (A) 13 %; MCH 30.6 pg (25.0-35.0); MCHC 32.8 g/dL (31.0-37.0); MCV 93.2 fL (80.0-100.0); Mean Platelet Volume 9.3; Monocytes # (A) 0.6 k/uL (0-1.0); Monocytes % (A) 5 %; Neutrophils # (A) 8.7 k/uL (1.3-7.7); Neutrophils % (A) 79 %; Platelet Count 160 k/uL (150-450); RBC 2.65 m/uL (3.80-5.40); RDW 13.7 % (11.5-15.5)
[2021-12-19 06:37] LABS: ALT 40 U/L (4-34); AST 130 U/L (14-36); African American GFR (CKD) >90 (>60 ml/min/1.73 sqM); Albumin 2.8 g/dL (3.5-5.0); Alkaline Phosphatase 110 U/L (38-126); Anion Gap 5 mmol/L; Blood Urea Nitrogen 21 mg/dL (7-17); Calcium 7.9 mg/dL (8.4-10.2); Carbon Dioxide 25 mmol/L (22-30); Chloride 105 mmol/L (98-107); Glucose 155 mg/dL (74-99); Non-African American GFR(CKD) 85 (>60 ml/min/1.73 sqM); Potassium 4.4 mmol/L (3.5-5.1); Sodium 135 mmol/L (137-145); Total Bilirubin 0.7 mg/dL (0.2-1.3); Total Protein 4.8 g/dL (6.3-8.2)
[2021-12-19] MEDS: SODIUM CHLORIDE 0.9% 1,000 ML IV SCH (06:38)
[2021-12-19 06:53] LABS: Glucose,Whole Blood 148 mg/dL (70-110)
[2021-12-19] MEDS: INSULIN ASPART (NovoLOG) 100 UNIT/ML VIAL SQ SCH ×6 (06:57→21:02)
--- NOTE | 2021-12-19 06:58 | XR ---
EXAMINATION TYPE: XR chest 1V portable DATE OF EXAM: 12/19/2021 CLINICAL HISTORY: Difficulty breathing progress study. TECHNIQUE: Single AP portable upright view of the chest is obtained. COMPARISON: Chest x-ray from one day earlier FINDINGS: Interval extubation with removal of endotracheal and orogastric tubes. Cardiac silhouette size is less prominent now upper limits of normal. Chronic parenchymal changes shima aterally without suspicious new focal airspace opacity, pleural effusion, or pneumothorax seen. [place] us structures are demineralized. IMPRESSION: Interval extubation. Chronic parenchymal changes without acute pulmonary process.
[2021-12-19] MEDS: ONDANSETRON 4 MG/2 ML VIAL IVP PRN ×2 (07:30→21:01)
--- NOTE | 2021-12-19 08:42 | P.PN ---
Subjective Progress Note Date: 12/19/21 The patient is doing much better this morning. She is awake in bed and able to converse with me. I spoke with her nurse and there are no evidence overnight. The patient is having some mild discomfort in her left hip. Most of her pain is in the right hip from her cardiac procedure. She has not yet been up out of bed into chair. Objective - Vital Signs Vital signs: Vital Signs Temp 98.7 F 12/19/21 08:00 Pulse 91 12/19/21 08:00 Resp 13 12/19/21 08:00 BP 85/52 12/19/21 08:00 Pulse Ox 95 12/19/21 08:00 FiO2 21 12/18/21 20:17 Intake & Output 12/18/21 12/19/21 12/19/21 18:59 06:59 18:59 Intake Total 675.521 780 580 Output Total 560 575 65 Balance 115.521 205 515 Weight 81 kg Intake: IV 505 240 40 Potassium Chloride 10 meq 100 In Water For Injection 1 100ml.bag @ 100 mls/hr IVPB Q1HR [facility] Rx#: [id number] Sodium Chloride 0.9% 1, 405 240 40 000 ml @ 20 mls/hr IV . Q24H [facility] Rx#:[id number] Intake, IV Titration 170.521 Amount Insulin Regular 100 unit 5.268 In Sodium Chloride 0.9% 100 ml @ Per Protocol IV .Q0M [facility] Rx#:[id number] Norepinephrine 4 mg In 96.536 Sodium Chloride 0.9% 250 ml @ 0.05 MCG/KG/MIN 13. 83 mls/hr IV .[id number] [facility] Rx#:[id number] propofoL 1,000 mg In 68.717 Empty Bag 1 bag @ 10 MCG/ KG/MIN 4.356 mls/hr IV . [id number] [facility] Rx#:[id number] Oral 540 Blood Product 540 Output: Urine 560 575 65 Other: Voiding Method Indwelling Catheter Indwelling Catheter Indwelling Catheter ABP, PAP, CO, CI - Last Documented Arterial Blood Pressure 106/50 - Exam The patient is resting comfortably in bed. She is alert and oriented. She denies his nonlabored breathing. A focused exam of the left lower extremity was conducted. On inspection there is a clean dressing over the anterior aspect of the left hip with no drainage or strike through. There is mild swelling in the thigh but soft and compressible. Femoral nerve function is intact. Distally she is able to actively plantarflex and dorsiflex her ankle and her toes. Sensation is intact to light touch throughout the left leg. - Labs CBC & Chem 7: 12/19/21 05:36 12/19/21 05:36 Labs: Abnormal Lab Results - Last 24 Hours (Table) 12/17/21 12/18/21 12/18/21 Range/Units 16:20 06:15 14:45 WBC (3.8-10.6) k/uL RBC (3.80-5.40) m/uL Hgb (11.4-16.0) gm/dL Hct (34.0-46.0) % Neutrophils # (1.3-7.7) k/uL Sodium (137-145) mmol/L BUN (7-17) mg/dL Glucose (74-99) mg/dL POC Glucose (mg/dL) (70-110) mg/dL Hemoglobin A1c 7.2 H (0.0-6.0) % Calcium (8.4-10.2) mg/dL AST (14-36) U/L ALT (4-34) U/L Troponin I 35.000 H* (0.000-0.034) ng/mL Total Protein (6.3-8.2) g/dL Albumin (3.5-5.0) g/dL Crossmatch See Detail 12/18/21 12/18/21 12/19/21 Range/Units 16:52 20:36 05:36 WBC 11.0 H (3.8-10.6) k/uL RBC 2.65 L (3.80-5.40) m/uL Hgb 8.1 L (11.4-16.0) gm/dL Hct 24.7 L (34.0-46.0) % Neutrophils # 8.7 H (1.3-7.7) k/uL Sodium (137-145) mmol/L BUN (7-17) mg/dL Glucose (74-99) mg/dL POC Glucose (mg/dL) 258 H 332 H (70-110) mg/dL Hemoglobin A1c (0.0-6.0) % Calcium (8.4-10.2) mg/dL AST (14-36) U/L ALT (4-34) U/L Troponin I (0.000-0.034) ng/mL Total Protein (6.3-8.2) g/dL Albumin (3.5-5.0) g/dL Crossmatch 12/19/21 12/19/21 Range/Units 05:36 06:51 WBC (3.8-10.6) k/uL RBC (3.80-5.40) m/uL Hgb (11.4-16.0) gm/dL Hct (34.0-46.0) % Neutrophils # (1.3-7.7) k/uL Sodium 135 L (137-145) mmol/L BUN 21 H (7-17) mg/dL Glucose 155 H (74-99) mg/dL POC Glucose (mg/dL) 148 H (70-110) mg/dL Hemoglobin A1c (0.0-6.0) % Calcium 7.9 L (8.4-10.2) mg/dL AST 130 H (14-36) U/L ALT 40 H (4-34) U/L Troponin I (0.000-0.034) ng/mL Total Protein 4.8 L (6.3-8.2) g/dL Albumin 2.8 L (3.5-5.0) g/dL Crossmatch Assessment and Plan Assessment: Postoperative day #2 status post left direct anterior total hip arthroplasty for subchondral femoral head fracture versus avascular necrosis Acute coronary event postoperatively Type 2 diabetes, labile blood sugars Plan: Overall the patient is doing much better this morning. She was extubated and taken off we will provide yesterday. Her left hip pain is controlled. Once she is medically stable she's going to discharge from the ICU to a lower level of care, likely today. Once she is medically able to I would like her to mobilize out of bed and into a chair. She can fully weight-bear on her left leg. Due to her labile blood sugars and postoperative issues I would like to put her on a low-dose antibiotic to lower her risk of PJI in line with recent orthopedic literature. We will prescribe doxycycline 100 mg twice a day for 2 weeks until her incision is completely healed.
[2021-12-19] MEDS ORDERED: INSULIN ASPART (NovoLOG) 100 UNIT/ML VIAL SQ SCH (09:00)
[2021-12-19] MEDS: HEPARIN SODIUM,PORCINE/PF 5,000 UNIT/0.5 ML SYRINGE SQ SCH ×2 (09:26→21:01)
[2021-12-19] MEDS: CLOPIDOGREL 75 MG TAB PO SCH (09:27)
[2021-12-19] MEDS: METOPROLOL TARTRATE 12.5 MG TAB PO SCH ×2 (09:27→20:59)
[2021-12-19] MEDS: ASPIRIN 81 MG PO SCH (09:27)
[2021-12-19] MEDS: DOXYCYCLINE 100 MG CAP PO SCH ×2 (09:36→21:01)
[2021-12-19] MEDS: ALPRAZolam 0.5 MG TAB PO PRN ×2 (09:36→21:01)
[2021-12-19 11:20] LABS: Glucose,Whole Blood 185 mg/dL (70-110)
--- NOTE | 2021-12-19 11:59 | P.PN ---
Subjective Progress Note Date: 12/19/21 Principal diagnosis: Acute hypoxic respiratory failure secondary to acute systolic congestive heart failure This is a 66-year-old female with known history of coronary artery disease, previous PCI in 2007. Known history of hypertension, dyslipidemia, type 1 diabetes, hypothyroidism, patient had elective anterior hip arthroplasty yesterday, and while in recovery the patient had sudden severe midsternal left- sided chest pain. Patient was also noted to be diaphoretic, EKG revealed ST elevation in anterolateral leads, patient was urgently taken to the cardiac catheterization lab, underwent cardiac catheterization. Underwent PTCA and stenting of totally occluded circumflex marginal and this was stented using a drug eluting stent and PTCA of previously stented LAD. Patient developed hypotension and she required intubation she had to be placed on relatively high dose of norepinephrine and dopamine and she was transferred to the ICU asked to see her on consultation I was notified about this patient from Dr. Archer and I called the ICU, adjusted her ventilator settings based on her ABG, reviewed chest x-ray that showed evidence of pulmonary edema, and I recommended Lasix to be given. Chest x-ray today showed improvement, I evaluated the patient in the ICU today, and recommending stopping propofol, I also recommended weaning parameters once she is completely off propofol and awake. Weaning parameters were done shortly after my evaluation, and the patient had excellent weaning parameters, she was on pressure support of 8 and CPAP, went ahead and extubated the patient uneventfully. Reevaluated today on 12/19/21, patient remains in the ICU, she was extubated yesterday uneventfully, and she is doing great. She is now on room air, O2 saturation is in the high 90s. Hemoglobin is down to 8.1, patient is doing well from the pulmonary perspective and I believe she could be transferred out of the ICU to a cardiac floor if cleared by cardiology. Patient is relatively asymptomatic today, no chest pain, no shortness of breath. Her WBC count is 11 hemoglobin is 8.1 patient is status post left hip replacement. Electrodes are normal renal profile is normal, chest x-ray showed no evidence of pulmonary edema. Objective - Vital Signs Vital signs: Vital Signs Temp 98.7 F 12/19/21 08:00 Pulse 91 12/19/21 08:00 Resp 13 12/19/21 08:00 BP 85/52 12/19/21 08:00 Pulse Ox 95 12/19/21 08:00 FiO2 21 12/18/21 20:17 Intake & Output 12/18/21 12/19/21 12/19/21 18:59 06:59 18:59 Intake Total 675.521 780 580 Output Total 560 575 65 Balance 115.521 205 515 Weight 81 kg Intake: IV 505 240 40 Potassium Chloride 10 meq 100 In Water For Injection 1 100ml.bag @ 100 mls/hr IVPB Q1HR [facility] Rx#: [id number] Sodium Chloride 0.9% 1, 405 240 40 000 ml @ 20 mls/hr IV . Q24H [facility] Rx#:[id number] Intake, IV Titration 170.521 Amount Insulin Regular 100 unit 5.268 In Sodium Chloride 0.9% 100 ml @ Per Protocol IV .Q0M [facility] Rx#:[id number] Norepinephrine 4 mg In 96.536 Sodium Chloride 0.9% 250 ml @ 0.05 MCG/KG/MIN 13. 83 mls/hr IV .[id number] [facility] Rx#:[id number] propofoL 1,000 mg In 68.717 Empty Bag 1 bag @ 10 MCG/ KG/MIN 4.356 mls/hr IV . [id number] [facility] Rx#:[id number] Oral 540 Blood Product 540 Output: Urine 560 575 65 Other: Voiding Method Indwelling Catheter Indwelling Catheter Indwelling Catheter ABP, PAP, CO, CI - Last Documented Arterial Blood Pressure 106/50 - Exam Physical Exam: Revealed a 66-year-old female , on room air, not in any distress. Head: Atraumatic, normocephalic HEENT:[Neck is supple.] [No neck masses.] [No thyromegaly.] [No JVD.] Chest: [Symmetrical chest expansion , clear throughout no crackles or rhonchi or wheezes Cardiac Exam: [Normal S1 and S2, no S3 gallop, no murmur.] Abdomen: [Soft, nontender, no megaly, no rebound, no guarding, normal bowel sounds.] Extremities: [No clubbing, no edema, no cyanosis.] Neurological Exam: [No focal neurologic deficit.] Alert and oriented 3. Psychiatric: Normal mood affect and normal mental status examination. Skin: No rashes - Labs CBC & Chem 7: 12/19/21 05:36 12/19/21 05:36 Labs: Abnormal Lab Results - Last 24 Hours (Table) 12/17/21 12/18/21 12/18/21 Range/Units 16:20 06:15 14:45 WBC (3.8-10.6) k/uL RBC (3.80-5.40) m/uL Hgb (11.4-16.0) gm/dL Hct (34.0-46.0) % Neutrophils # (1.3-7.7) k/uL Sodium (137-145) mmol/L BUN (7-17) mg/dL Glucose (74-99) mg/dL POC Glucose (mg/dL) (70-110) mg/dL Hemoglobin A1c 7.2 H (0.0-6.0) % Calcium (8.4-10.2) mg/dL AST (14-36) U/L ALT (4-34) U/L Troponin I 35.000 H* (0.000-0.034) ng/mL Total Protein (6.3-8.2) g/dL Albumin (3.5-5.0) g/dL Crossmatch See Detail 12/18/21 12/18/21 12/19/21 Range/Units 16:52 20:36 05:36 WBC 11.0 H (3.8-10.6) k/uL RBC 2.65 L (3.80-5.40) m/uL Hgb 8.1 L (11.4-16.0) gm/dL Hct 24.7 L (34.0-46.0) % Neutrophils # 8.7 H (1.3-7.7) k/uL Sodium (137-145) mmol/L BUN (7-17) mg/dL Glucose (74-99) mg/dL POC Glucose (mg/dL) 258 H 332 H (70-110) mg/dL Hemoglobin A1c (0.0-6.0) % Calcium (8.4-10.2) mg/dL AST (14-36) U/L ALT (4-34) U/L Troponin I (0.000-0.034) ng/mL Total Protein (6.3-8.2) g/dL Albumin (3.5-5.0) g/dL Crossmatch 12/19/21 12/19/21 12/19/21 Range/Units 05:36 06:51 11:18 WBC (3.8-10.6) k/uL RBC (3.80-5.40) m/uL Hgb (11.4-16.0) gm/dL Hct (34.0-46.0) % Neutrophils # (1.3-7.7) k/uL Sodium 135 L (137-145) mmol/L BUN 21 H (7-17) mg/dL Glucose 155 H (74-99) mg/dL POC Glucose (mg/dL) 148 H 185 H (70-110) mg/dL Hemoglobin A1c (0.0-6.0) % Calcium 7.9 L (8.4-10.2) mg/dL AST 130 H (14-36) U/L ALT 40 H (4-34) U/L Troponin I (0.000-0.034) ng/mL Total Protein 4.8 L (6.3-8.2) g/dL Albumin 2.8 L (3.5-5.0) g/dL Crossmatch Assessment and Plan Assessment: Impression: Acute ST elevation myocardial infarction, status post emergent cardiac catheterization and stenting of circumflex marginal branch and stenting of LAD. Which was previously stented. Acute hypoxic respiratory failure secondary to acute myocardial infarction and hypotension requiring intubation and mechanical ventilation. And secondary to acute pulmonary edema/acute systolic congestive heart failure. Patient was extubated on 12/18/21 Status post left anterior total hip arthroplasty, postoperative day #2 Acute pulmonary edema secondary to acute systolic congestive heart failure, resolved. Recommendation: Continue cardiac meds including statins Plavix beta cayden and aspirin Can potentially transfer out of the ICU to telemetry bed on the cardiac floor today if cleared by cardiology. Incentive spirometry GI and DVT prophylaxis. we will continue to follow Time with Patient: Less than 30
--- NOTE | 2021-12-19 14:07 | P.PN ---
Subjective HISTORY OF PRESENTING ILLNESS This is a pleasant 66-year-old female past medical history significant for coronary artery disease status post PCI in 2007, hypothyroidism, hypertension, dyslipidemia, type 1 diabetes. She follows with Dr. Shaggy Hernandez. We have been asked to see in consultation for chest pain and EKG changes post op. Patient presented to the hospital for planned elective left anterior total hip arthroplasty. Postoperatively patient was taken to recovery. She had midsternal left-sided chest pain. Associated nausea. EKG was performed which revealed ST elevation in inferior and lateral leads. No significant ST depress ion in V2 and V3. Secondary to EKG abnormalities cardiology was notified. Patient was alert, drowsy post op. Hypotensive but BP improved 102/56 with IV fluids. She continued to have active chest pain and nausea. Patient was taken urgently to cardiac labor specialist. Labs not available at the time of this dictation. Patient denies any history of [place], stroke. She underwent PCI in 2007 she states secondary to abnormal stress test. 12/18 Patient seen and examined. Patient underwent heart catheterization yesterday showing total occlusion of large ramus branch and underwent stenting. Patient additionally hypotensive and therefore underwent balloon angioplasty of the LAD. She was hypotensive and intubated. She has been extubated today and on room air. She is anxious however denies any chest pain or pressure. She did have pain around her right femoral site where her sheath was however Fem stop has been removed and currently more has pain from her left hip site. Creatinine stable. Blood pressures borderline in the 90s over 60s and mildly tachycardic. No beta cayden has been added given borderline blood pressures. 12/19 Patient seen and examined. Patient still having significant pain of the left hip however predominantly somewhat better controlled. Still somewhat anxious. Heart rates in the 90s to low 100s. She has been able to tolerate the metoprolol with somewhat borderline blood pressures. Awaiting 2-D echo. PHYSICAL EXAMINATION Vitals reviewed CONSTITUTIONAL: No apparent distress. HEENT: Head is normocephalic. Pupils are equal, round. Sclerae anicteric. Mucous membranes of the mouth are moist. CHEST EXAMINATION: Lungs are clear to auscultation. HEART EXAMINATION: Regular rate and rhythm. S1, S2 heard. EXTREMITIES: 2+ peripheral pulses, no lower extremity edema and no calf tenderness. NEUROLOGIC EXAMINATION: Patient is awake, alert and oriented x3. ASSESSMENT Inferiorlateral STEMI with PCI ramus Status post left anterior total hip arthroplasty on 12/17 Coronary artery disease status post PCI in 2007 Hypothyroidism Hypertension Dyslipidemia PLAN Continue dual antiplatelets with aspirin and Plavix. Monitor for any bleeding from hip site however appears stable. Await 2-D echo. Continue low-dose metoprolol 12.5 mg twice a day. Continue supportive care. Further recommendations to follow. Objective - Vital Signs Vital signs: Vital Signs Temp 98.7 F 12/19/21 12:00 Pulse 85 12/19/21 12:00 Resp 15 12/19/21 12:00 BP 91/46 12/19/21 12:00 Pulse Ox 95 12/19/21 12:00 FiO2 21 12/18/21 20:17 Intake & Output 12/18/21 12/19/21 12/19/21 18:59 06:59 18:59 Intake Total 675.521 780 890 Output Total 560 575 315 Balance 115.521 205 575 Weight 81 kg Intake: IV 505 240 100 Potassium Chloride 10 meq 100 In Water For Injection 1 100ml.bag @ 100 mls/hr IVPB Q1HR [facility] Rx#: [id number] Sodium Chloride 0.9% 1, 405 240 100 000 ml @ 20 mls/hr IV . Q24H [facility] Rx#:[id number] Intake, IV Titration 170.521 Amount Insulin Regular 100 unit 5.268 In Sodium Chloride 0.9% 100 ml @ Per Protocol IV .Q0M [facility] Rx#:[id number] Norepinephrine 4 mg In 96.536 Sodium Chloride 0.9% 250 ml @ 0.05 MCG/KG/MIN 13. 83 mls/hr IV .[id number] [facility] Rx#:[id number] propofoL 1,000 mg In 68.717 Empty Bag 1 bag @ 10 MCG/ KG/MIN 4.356 mls/hr IV . [id number] [facility] Rx#:[id number] Oral 540 250 Blood Product 540 Output: Urine 560 575 315 Other: Voiding Method Indwelling Catheter Indwelling Catheter Indwelling Catheter ABP, PAP, CO, CI - Last Documented Arterial Blood Pressure 106/50 - Labs CBC & Chem 7: 12/19/21 05:36 12/19/21 05:36 Labs: Abnormal Lab Results - Last 24 Hours (Table) 12/17/21 12/18/2112/18/22 Range/Units 16:20 06:15 14:45 WBC (3.8-10.6) k/uL RBC (3.80-5.40) m/uL Hgb (11.4-16.0) gm/dL Hct (34.0-46.0) % Neutrophils # (1.3-7.7) k/uL Sodium (137-145) mmol/L BUN (7-17) mg/dL Glucose (74-99) mg/dL POC Glucose (mg/dL) (70-110) mg/dL Hemoglobin A1c 7.2 H (0.0-6.0) % Calcium (8.4-10.2) mg/dL AST (14-36) U/L ALT (4-34) U/L Troponin I 35.000 H* (0.000-0.034) ng/mL Total Protein (6.3-8.2) g/dL Albumin (3.5-5.0) g/dL Crossmatch See Detail 12/18/21 12/18/21 12/19/21 Range/Units 16:52 20:36 05:36 WBC 11.0 H (3.8-10.6) k/uL RBC 2.65 L (3.80-5.40) m/uL Hgb 8.1 L (11.4-16.0) gm/dL Hct 24.7 L (34.0-46.0) % Neutrophils # 8.7 H (1.3-7.7) k/uL Sodium (137-145) mmol/L BUN (7-17) mg/dL Glucose (74-99) mg/dL POC Glucose (mg/dL) 258 H 332 H (70-110) mg/dL Hemoglobin A1c (0.0-6.0) % Calcium (8.4-10.2) mg/dL AST (14-36) U/L ALT (4-34) U/L Troponin I (0.000-0.034) ng/mL Total Protein (6.3-8.2) g/dL Albumin (3.5-5.0) g/dL Crossmatch 12/19/21 12/19/21 12/19/21 Range/Units 05:36 06:51 11:18 WBC (3.8-10.6) k/uL RBC (3.80-5.40) m/uL Hgb (11.4-16.0) gm/dL Hct (34.0-46.0) % Neutrophils # (1.3-7.7) k/uL Sodium 135 L (137-145) mmol/L BUN 21 H (7-17) mg/dL Glucose 155 H (74-99) mg/dL POC Glucose (mg/dL) 148 H 185 H (70-110) mg/dL Hemoglobin A1c (0.0-6.0) % Calcium 7.9 L (8.4-10.2) mg/dL AST 130 H (14-36) U/L ALT 40 H (4-34) U/L Troponin I (0.000-0.034) ng/mL Total Protein 4.8 L (6.3-8.2) g/dL Albumin 2.8 L (3.5-5.0) g/dL Crossmatch
[2021-12-19 16:47] LABS: Glucose,Whole Blood 129 mg/dL (70-110)
[2021-12-19 20:14] LABS: Glucose,Whole Blood 148 mg/dL (70-110)
[2021-12-19] MEDS: ATORVASTATIN 80 MG TAB PO SCH (20:59)
[2021-12-19] MEDS: SENNOSIDES-DOCUSATE SODIUM 1 EACH TAB PO SCH (21:01)
--- NOTE | 2021-12-20 00:03 | P.PN ---
Subjective Progress Note Date: 12/19/21 Patient is a 66-year-old female with a known history of coronary artery disease and previous stent placement in 2007, hypertension, diabetes type 2 insulin- dependent, hypertension, osteoarthritis was admitted to hospital for elective left total hip arthroplasty. While in the recovery room patient felt sudden onset of severe mid retrosternal and left-sided chest pain associated with nausea and diaphoresis. EKG showed ST elevation in the anterolateral leads and patient was immediately taken to cardiac catheterization and underwent PTCA and stenting of a totally occluded high up to small marginal/ramus intermedius branch with a drug-eluting stent and PTCA of previously stented LAD in the setting of hypotension. Preoperatively patient required intubation and pressor support with norepinephrine and a dopamine. Patient was transferred to MICU. Patient states that she had stress test about 6 months ago by her textiles and clothing teacher. Chest x-ray this morning showed advancement of 9 cm above the NG tube is recommended for optimal placement Katei recommendation from 1 day prior. Similar multifocal opacities given differences in technique. Patient was subsequently extubated today morning. Blood sugars are slightly elevated. Laboratory data showed sodium 137 potassium 3.2 chloride 108 BUN 22, creatinine 0.72 and blood sugar 144 this morning. Patient is on 0.5 AST 205 ALT 61 alk phos 115 and albumin 2.9 12/19/2021 Patient is currently sitting in the chair. Awake alert and oriented x3. No com plaints of chest pain. Complains of hip pain. Oxygen titrated down to room air now. No fever no chills. No cough or sputum production. Laboratory data showed WBC 11.0 hemoglobin 8.1 and platelets 160 Sodium 135 potassium 4.4 chloride 105 bicarb is 25 BUN 31 and creatinine 0.74 and blood sugar is 155 Calcium 7.9 AST 130 ALT 40 alk phos 110 and albumin 2.8. Patient is being continued dual antiplatelet agents, metoprolol and statins. Currently on antibiotics with follow-up doxycycline. Blood sugar is fairly controlled. Current medications reviewed. Objective - Vital Signs Vital signs: Vital Signs Temp 98.9 F 12/19/21 16:00 Pulse 85 12/19/21 16:00 Resp 18 12/19/21 16:00 BP 103/61 12/19/21 16:00 Pulse Ox 95 12/19/21 16:00 FiO2 21 12/18/21 20:17 Intake & Output 12/19/21 12/19/21 12/20/21 06:59 18:59 06:59 Intake Total 780 890 Output Total 575 865 Balance 205 25 Weight 81 kg Intake: IV 240 100 Sodium Chloride 0.9% 1, 240 100 000 ml @ 20 mls/hr IV . Q24H [facility] Rx#:[id number] Oral 540 250 Blood Product 540 Output: Urine 575 865 Other: Voiding Method Indwelling Catheter Indwelling Catheter ABP, PAP, CO, CI - Last Documented Arterial Blood Pressure 106/50 - Exam PHYSICAL EXAMINATION: Patient is lying in the bed comfortably, no acute distress, awake alert and oriented.. HEENT: Normocephalic. Neck is supple. Pupils reactive. Nostrils clear. Oral cavity is moist. Neck reveals no JVD, carotid bruits, or thyromegaly. CHEST EXAMINATION: Trachea is central. Symmetrical expansion. Lung almanza clear to auscultation and percussion. CARDIAC: Normal S1, S2 with no gallops. No murmurs ABDOMEN: Soft. Bowel sounds present. Nontender. No organomegaly. No abdominal bruits. Extremities: reveal no edema. No clubbing or cyanosis Neurologically awake, alert, oriented x3 with well-coordinated movements. No focal deficits noted Skin: No rash or skin lesions. Psychiatric: Coperative. Nonsuicidal, Musculoskeletal: No joint swelling or deformity. Normal range of motion. - Labs CBC & Chem 7: 12/19/21 05:36 12/19/21 05:36 Labs: Abnormal Lab Results - Last 24 Hours (Table) 12/17/21 12/18/21 12/19/21 Range/Units 16:20 06:15 05:36 WBC 11.0 H (3.8-10.6) k/uL RBC 2.65 L (3.80-5.40) m/uL Hgb 8.1 L (11.4-16.0) gm/dL Hct 24.7 L (34.0-46.0) % Neutrophils # 8.7 H (1.3-7.7) k/uL Sodium (137-145) mmol/L BUN (7-17) mg/dL Glucose (74-99) mg/dL POC Glucose (mg/dL) (70-110) mg/dL Hemoglobin A1c 7.2 H (0.0-6.0) % Calcium (8.4-10.2) mg/dL AST (14-36) U/L ALT (4-34) U/L Total Protein (6.3-8.2) g/dL Albumin (3.5-5.0) g/dL Crossmatch See Detail 12/19/21 12/19/21 12/19/21 Range/Units 05:36 06:51 11:18 WBC (3.8-10.6) k/uL RBC (3.80-5.40) m/uL Hgb (11.4-16.0) gm/dL Hct (34.0-46.0) % Neutrophils # (1.3-7.7) k/uL Sodium 135 L (137-145) mmol/L BUN 21 H (7-17) mg/dL Glucose 155 H (74-99) mg/dL POC Glucose (mg/dL) 148 H 185 H (70-110) mg/dL Hemoglobin A1c (0.0-6.0) % Calcium 7.9 L (8.4-10.2) mg/dL AST 130 H (14-36) U/L ALT 40 H (4-34) U/L Total Protein 4.8 L (6.3-8.2) g/dL Albumin 2.8 L (3.5-5.0) g/dL Crossmatch 12/19/21 12/19/21 Range/Units 16:46 20:12 WBC (3.8-10.6) k/uL RBC (3.80-5.40) m/uL Hgb (11.4-16.0) gm/dL Hct (34.0-46.0) % Neutrophils # (1.3-7.7) k/uL Sodium (137-145) mmol/L BUN (7-17) mg/dL Glucose (74-99) mg/dL POC Glucose (mg/dL) 129 H 148 H (70-110) mg/dL Hemoglobin A1c (0.0-6.0) % Calcium (8.4-10.2) mg/dL AST (14-36) U/L ALT (4-34) U/L Total Protein (6.3-8.2) g/dL Albumin (3.5-5.0) g/dL Crossmatch Assessment and Plan Assessment: Acute ST elevated OK status postcardiac catheterization and stent placement to circumflex marginal branch Acute hypoxic respiratory failure secondary to acute [place] and hypotension r equiring mechanical ventilation. Currently extubated. Acute cardiogenic shock requiring pressor support. Currently off pressors Acute CHF with systolic function with pulmonary edema Status post left total hip arthroplasty postoperative day 2 Coronary disease history of stent placement to LAD in 2007 Hypertension Hyperlipidemia Diabetes type 2 insulin-dependent with hyperglycemia Osteoarthritis DVT prophylaxis Plan: Patient is status post cardiac catheterization and stent placement to circumflex marginal branch. Patient is currently extubated and off pressor support. Continue with aspirin statins and Plavix and metoprolol was started. Cardiac telemetry monitoring. Current home medications and titrate insulin regimen for better blood sugar control. Patient is currently monitored in the MICU. Oxygen titrated down to room air. Possible transfer to the ICU in the next 24 hours. Discussed with the patient and her at bedside in detail. Time with Patient: Greater than 30
[2021-12-20] MEDS: HYDROcodone/APAP 5-325MG 1 EACH TAB PO PRN ×2 (03:41→15:33)
[2021-12-20 04:07] LABS: Basophils % (A) 0 %; Eosinophils # (A) 0.3 k/uL (0-0.7); Eosinophils % (A) 4 %; HCT 24.6 % (34.0-46.0); HGB 7.6 gm/dL (11.4-16.0); Hypochromasia Slight; Lymphocytes # (A) 1.7 k/uL (1.0-4.8); Lymphocytes % (A) 24 %; MCH 29.6 pg (25.0-35.0); MCV 95.7 fL (80.0-100.0); Mean Platelet Volume 9.1; Monocytes # (A) 0.3 k/uL (0-1.0); Monocytes % (A) 5 %; Neutrophils # (A) 4.6 k/uL (1.3-7.7); Neutrophils % (A) 66 %; Platelet Count 153 k/uL (150-450); RBC 2.57 m/uL (3.80-5.40); RDW 13.4 % (11.5-15.5)
[2021-12-20 04:32] LABS: ALT 38 U/L (4-34); AST 102 U/L (14-36); African American GFR (CKD) >90 (>60 ml/min/1.73 sqM); Albumin 2.7 g/dL (3.5-5.0); Alkaline Phosphatase 120 U/L (38-126); Anion Gap 6 mmol/L; Blood Urea Nitrogen 17 mg/dL (7-17); Calcium 8.1 mg/dL (8.4-10.2); Carbon Dioxide 26 mmol/L (22-30); Chloride 105 mmol/L (98-107); Glucose 70 mg/dL (74-99); Non-African American GFR(CKD) 81 (>60 ml/min/1.73 sqM); Sodium 137 mmol/L (137-145); Total Bilirubin 0.3 mg/dL (0.2-1.3); Total Protein 4.8 g/dL (6.3-8.2)
--- NOTE | 2021-12-20 06:45 | XR ---
EXAMINATION TYPE: XR chest 1V portable DATE OF EXAM: 12/20/2021 5:54 AM COMPARISON: Chest radiographs from 12/19/2021. TECHNIQUE: XR chest 1V portable Frontal view of the chest. CLINICAL INDICATION:Female, 66 years old with history of Tube placement; FINDINGS: Lungs/Pleura: There is no evidence of pleural effusion, focal consolidation, or pneumothorax. Pulmonary vascularity: Unremarkable. Heart/mediastinum: Cardiomediastinal silhouette is unremarkable. Musculoskeletal: No acute osseous pathology. IMPRESSION: No acute cardiopulmonary disease/process.
[2021-12-20 06:49] LABS: Glucose,Whole Blood 70 mg/dL (70-110)
[2021-12-20] MEDS: INSULIN ASPART (NovoLOG) 100 UNIT/ML VIAL SQ SCH ×7 (07:07→20:24)
[2021-12-20] MEDS: NOREPINEPHRINE 4 MG in SODIUM CHLORIDE 0.9% 250 ML IV SCH ×2 (07:08→20:09)
[2021-12-20] MEDS: LEVOTHYROXINE 112 MCG TAB PO SCH (07:37)
--- NOTE | 2021-12-20 07:44 | P.PN ---
Subjective Progress Note Date: 12/20/21 Principal diagnosis: Acute coronary syndrome The patient is a 66-year-old female patient with CAD and prior stenting as well as hypertension and dyslipidemia who was admitted to the hospital for elective left anterior total hip arthroplasty and after that she developed chest dis comfort and she was diagnosed with acute coronary syndrome. She underwent a heart catheterization and stenting of the ramus intermedius. The patient was seen this morning H is asymptomatic from a cardiovascular standpoint overview. She is stable hemodynamically. She's on dual antiplatelet therapy as well as high intensity statin. The patient can be transferred to the third floor. Objective - Vital Signs Vital signs: Vital Signs Temp 98.7 F 12/20/21 03:50 Pulse 82 12/20/21 03:50 Resp 16 12/20/21 00:00 BP 105/59 12/20/21 03:50 Pulse Ox 96 12/20/21 03:50 FiO2 21 12/18/21 20:17 Intake & Output 12/19/21 12/20/21 12/20/21 18:59 06:59 18:59 Intake Total 890 Output Total 865 200 Balance 25 -200 Intake: IV 100 Sodium Chloride 0.9% 1, 100 000 ml @ 20 mls/hr IV . Q24H [facility] Rx#:[id number] Oral 250 Blood Product 540 Output: Urine 865 200 Other: Voiding Method Indwelling Catheter Indwelling Catheter # Voids 1 ABP, PAP, CO, CI - Last Documented Arterial Blood Pressure 106/50 - Constitutional General appearance: Present: no acute distress - Respiratory Respiratory: bilateral: CTA - Cardiovascular Rhythm: regular Heart sounds: normal: S1, S2 - Labs CBC & Chem 7: 12/20/21 03:20 12/20/21 03:20 Labs: Abnormal Lab Results - Last 24 Hours (Table) 12/19/21 12/19/21 12/19/21 Range/Units 11:18 16:46 20:12 RBC (3.80-5.40) m/uL Hgb (11.4-16.0) gm/dL Hct (34.0-46.0) % Glucose (74-99) mg/dL POC Glucose (mg/dL) 185 H 129 H 148 H (70-110) mg/dL Calcium (8.4-10.2) mg/dL AST (14-36) U/L ALT (4-34) U/L Total Protein (6.3-8.2) g/dL Albumin (3.5-5.0) g/dL 12/20/21 12/20/21 Range/Units 03:20 03:20 RBC 2.57 L (3.80-5.40) m/uL Hgb 7.6 L (11.4-16.0) gm/dL Hct 24.6 L (34.0-46.0) % Glucose 70 L (74-99) mg/dL POC Glucose (mg/dL) (70-110) mg/dL Calcium 8.1 L (8.4-10.2) mg/dL AST 102 H (14-36) U/L ALT 38 H (4-34) U/L Total Protein 4.8 L (6.3-8.2) g/dL Albumin 2.7 L (3.5-5.0) g/dL Assessment and Plan Assessment: Assessment #[address] elevation PR was PCI of the LCx #2 status post angioplasty of the LAD as well #3 hypertension #4 dyslipidemia Plan #1 continue the current medical regimen #2 the patient is asymptomatic and stable hemodynamic D #3 she can be transferred to the third floor
--- NOTE | 2021-12-20 07:49 | P.PN ---
Subjective Progress Note Date: 12/20/21 The patient is doing better this morning. She is complaining of some minor discomfort in her left thigh, but states that the deep-seated groin pain she was having before surgery started significantly improved. She was up yesterday in a chair and walked in her room. She continues to have some mild discomfort in her right hip site of her cardiac procedure. Objective - Vital Signs Vital signs: Vital Signs Temp 98.7 F 12/20/21 03:50 Pulse 82 12/20/21 03:50 Resp 16 12/20/21 00:00 BP 105/59 12/20/21 03:50 Pulse Ox 96 12/20/21 03:50 FiO2 21 12/18/21 20:17 Intake & Output 12/19/21 12/20/21 12/20/21 18:59 06:59 18:59 Intake Total 890 Output Total 865 200 Balance 25 -200 Intake: IV 100 Sodium Chloride 0.9% 1, 100 000 ml @ 20 mls/hr IV . Q24H [facility] Rx#:[id number] Oral 250 Blood Product 540 Output: Urine 865 200 Other: Voiding Method Indwelling Catheter Indwelling Catheter # Voids 1 ABP, PAP, CO, CI - Last Documented Arterial Blood Pressure 106/50 - Exam The patient is alert and oriented and able to answer questions. She demonstrates nonlabored breathing. A focused exam the left lower extremity was conducted. On inspection there is a clean-appearing dressing over her left hip. Her thigh is mildly swollen but soft and compressible in the thigh. Femoral nerve function is intact. Distally she is able to actively plantarflex and dorsiflex her ankle and her toes. - Labs CBC & Chem 7: 12/20/21 03:20 12/20/21 03:20 Labs: Abnormal Lab Results - Last 24 Hours (Table) 12/19/21 12/19/21 12/19/21 Range/Units 11:18 16:46 20:12 RBC (3.80-5.40) m/uL Hgb (11.4-16.0) gm/dL Hct (34.0-46.0) % Glucose (74-99) mg/dL POC Glucose (mg/dL) 185 H 129 H 148 H (70-110) mg/dL Calcium (8.4-10.2) mg/dL AST (14-36) U/L ALT (4-34) U/L Total Protein (6.3-8.2) g/dL Albumin (3.5-5.0) g/dL 12/20/21 12/20/21 Range/Units 03:20 03:20 RBC 2.57 L (3.80-5.40) m/uL Hgb 7.6 L (11.4-16.0) gm/dL Hct 24.6 L (34.0-46.0) % Glucose 70 L (74-99) mg/dL POC Glucose (mg/dL) (70-110) mg/dL Calcium 8.1 L (8.4-10.2) mg/dL AST 102 H (14-36) U/L ALT 38 H (4-34) U/L Total Protein 4.8 L (6.3-8.2) g/dL Albumin 2.7 L (3.5-5.0) g/dL Assessment and Plan Plan: The patient continues to improve both from a cardiac an orthopedic standpoint. She can continue to weight-bear as tolerated on her left hip and should mobilize out of bed and into a chair when she is able. She was cleared by cardiology to transfer to the third floor when a bed is available. We will continue to closely follow her while she is an inpatient. Time with Patient: Less than 30
[2021-12-20] MEDS: LACTATED RINGERS 1,000 ML IV SCH (08:41)
[2021-12-20] MEDS: SODIUM CHLORIDE 0.9% 1,000 ML IV SCH (08:41)
[2021-12-20] MEDS: CLOPIDOGREL 75 MG TAB PO SCH (09:28)
[2021-12-20] MEDS: DOXYCYCLINE 100 MG CAP PO SCH ×2 (09:28→20:23)
[2021-12-20] MEDS: ASPIRIN 81 MG PO SCH (09:28)
[2021-12-20] MEDS: METOPROLOL TARTRATE 12.5 MG TAB PO SCH ×2 (09:28→20:23)
[2021-12-20] MEDS: HEPARIN SODIUM,PORCINE/PF 5,000 UNIT/0.5 ML SYRINGE SQ SCH ×2 (09:28→20:23)
[2021-12-20] MEDS: ALPRAZolam 0.5 MG TAB PO PRN ×2 (09:35→20:23)
[2021-12-20] MEDS: ONDANSETRON 4 MG/2 ML VIAL IVP PRN (10:06)
[2021-12-20 11:20] LABS: Glucose,Whole Blood 161 mg/dL (70-110)
--- NOTE | 2021-12-20 11:26 | P.PN ---
Subjective Progress Note Date: 12/20/21 Principal diagnosis: Myocardial infarction. Acute hypoxic respiratory failure secondary to acute systolic congestive heart failure This is a 66-year-old female with known history of coronary artery disease, previous PCI in 2007. Known history of hypertension, dyslipidemia, type 1 diabetes, hypothyroidism, patient had elective anterior hip arthroplasty yesterday, and while in recovery the patient had sudden severe midsternal left- sided chest pain. Patient was also noted to be diaphoretic, EKG revealed ST elevation in anterolateral leads, patient was urgently taken to the cardiac catheterization lab, underwent cardiac catheterization. Underwent PTCA and stenting of totally occluded circumflex marginal and this was stented using a drug eluting stent and PTCA of previously stented LAD. Patient developed hypotension and she required intubation she had to be placed on relatively high dose of norepinephrine and dopamine and she was transferred to the ICU asked to see her on consultation I was notified about this patient from Dr. Archer and I called the ICU, adjusted her ventilator settings based on her ABG, reviewed chest x-ray that showed evidence of pulmonary edema, and I recommended Lasix to be given. Chest x-ray today showed improvement, I evaluated the patient in the ICU today, and recommending stopping propofol, I also recommended weaning parameters once she is completely off propofol and awake. Weaning parameters were done shortly after my evaluation, and the patient had excellent weaning parameters, she was on pressure support of 8 and CPAP, went ahead and extubated the patient uneventfully. Reevaluated today on 12/19/21, patient remains in the ICU, she was extubated yesterday uneventfully, and she is doing great. She is now on room air, O2 saturation is in the high 90s. Hemoglobin is down to 8.1, patient is doing well from the pulmonary perspective and I believe she could be transferred out of the ICU to a cardiac floor if cleared by cardiology. Patient is relatively asymptomatic today, no chest pain, no shortness of breath. Her WBC count is 11 hemoglobin is 8.1 patient is status post left hip replacement. Electrodes are normal renal profile is normal, chest x-ray showed no evidence of pulmonary edema. Progress note dated 12/20/2021. This is a patient was admitted on December 17, for left hip replacement. Unfortunately, she ended up with an ST segment elevation myocardial infarction. She went to the catheterization laboratory, and had a dilatation of the left anterior descending coronary artery, stent placement in the circumflex coronary artery. She was intubated on the , and extubated on December 18, Saturd ay. Currently, she is on room air. She's not receiving any IV fluids. She is resting comfortably in the intensive care unit, room 259. White count 7, hemoglobin 7.6, hematocrit 24.6, and platelet count 253,000. Sodium 137, potassium 4, chlorides 105, CO2 26, BUN 17, creatinine 0.77. Albumin is 2.7. Today's chest x-ray is normal. Objective - Vital Signs Vital signs: Vital Signs Temp 98.7 F 12/20/21 08:00 Pulse 85 12/20/21 08:00 Resp 18 12/20/21 08:00 BP 122/67 12/20/21 08:00 Pulse Ox 98 12/20/21 08:00 FiO2 21 12/18/21 20:17 Intake & Output 12/19/21 12/20/21 12/20/21 18:59 06:59 18:59 Intake Total 890 Output Total 865 200 600 Balance 25 -200 -600 Weight 83.1 kg Intake: IV 100 Sodium Chloride 0.9% 1, 100 000 ml @ 20 mls/hr IV . Q24H [facility] Rx#:[id number] Oral 250 Blood Product 540 Output: Urine 865 200 600 Other: Voiding Method Indwelling Catheter Indwelling Catheter Bedpan # Voids 1 ABP, PAP, CO, CI - Last Documented Arterial Blood Pressure 106/50 - Exam No acute distress, oriented 3. HEENT examination is grossly unremarkable. Neck supple. Full range of motion. No adenopathy thyromegaly or neck vein distention. Cardiovascular examination reveals regular rhythm rate. S1-S2 normal. No S3 or S4. No discernible murmur noted. Heart rate 70 bpm. Lungs reveal clear breath sounds. Breath sounds are equal bilaterally. No adventitious lung sounds including wheezes rhonchi or crackles. Abdomen soft bowel sounds are heard. No masses or tenderness. Extremities are intact. No cyanosis clubbing or edema. Skin is without rash or lesion. Neurologic examination is brief but nonfocal. - Labs CBC & Chem 7: 12/20/21 03:20 12/20/21 03:20 Labs: Abnormal Lab Results - Last 24 Hours (Table) 12/19/21 12/19/2122 Range/Units 11:18 16:46 20:12 RBC (3.80-5.40) m/uL Hgb (11.4-16.0) gm/dL Hct (34.0-46.0) % Glucose (74-99) mg/dL POC Glucose (mg/dL) 185 H 129 H 148 H (70-110) mg/dL Calcium (8.4-10.2) mg/dL AST (14-36) U/L ALT (4-34) U/L Total Protein (6.3-8.2) g/dL Albumin (3.5-5.0) g/dL 12/20/21 12/20/21 Range/Units 03:20 03:20 RBC 2.57 L (3.80-5.40) m/uL Hgb 7.6 L (11.4-16.0) gm/dL Hct 24.6 L (34.0-46.0) % Glucose 70 L (74-99) mg/dL POC Glucose (mg/dL) (70-110) mg/dL Calcium 8.1 L (8.4-10.2) mg/dL AST 102 H (14-36) U/L ALT 38 H (4-34) U/L Total Protein 4.8 L (6.3-8.2) g/dL Albumin 2.7 L (3.5-5.0) g/dL Assessment and Plan Assessment: Acute ST segment elevation myocardial infarction, status post emergent cardiac catheterization and stenting of the circumflex coronary artery, and dilatation of the LAD. Acute hypoxemic respiratory failure, secondary to acute myocardial infarction, requiring intubation and mechanical ventilation, status post extubation on December 18. Postop day #3, status post left hip replacement. Acute pulmonary edema secondary to acute myocardial infarction, resolved. History of hyperlipidemia. History of hypertension. History of hypothyroidism. Plan: Plan dated 12/20/2021. The patient is seen today in room 259. She is on room air. She's not receiving any IV fluids. The patient is currently stable enough to be transferred out to the cardiac floor. X-rays, laboratory, and medications are all reviewed. Chest x-ray does not show acute disease. Follow make recommendations along the way. She is having some pain from her recent hip replacement. Time with Patient: Less than 30
--- NOTE | 2021-12-20 14:50 | P.PN ---
Subjective Progress Note Date: 12/20/21 This is a pleasant 66-year-old female with known history of CAD with prior stent in 2007, hypertension, diabetes mellitus type 2, osteoarthritis, status post left total hip arthroplasty. Patient states she was adjusting lites on her tiki bar, standing on a chair and had fallen off. Continued to walk on it for approximately 5 days before she sought further evaluation. Status post left direct anterior total hip arthroplasty, sustained an acute inferior lateral STEMI. Status post emergent cardiac catheterization with stenting of circumflex marginal branch and LAD dilated.Maintained on dual antiplatelet therapy, statin. Denies chest pain, palpitations or shortness of breath. Maintaining O2 sats of high 90s on room air. Chest x-ray reporting no acute cardiopulmonary process. Ambulating, pain controlled. Afebrile, normal WBC. Renal function stable. Blood sugars controlled. Objective - Vital Signs Vital signs: Vital Signs Temp 98.7 F 12/20/21 08:00 Pulse 85 12/20/21 08:00 Resp 18 12/20/21 08:00 BP 122/67 12/20/21 08:00 Pulse Ox 98 12/20/21 08:00 FiO2 21 12/18/21 20:17 Intake & Output 12/19/21 12/20/21 12/20/21 18:59 06:59 18:59 Intake Total 890 Output Total 865 200 600 Balance 25 -200 -600 Weight 83.1 kg Intake: IV 100 Sodium Chloride 0.9% 1, 100 000 ml @ 20 mls/hr IV . Q24H [facility] Rx#:[id number] Oral 250 Blood Product 540 Output: Urine 865 200 600 Other: Voiding Method Indwelling Catheter Indwelling Catheter Bedpan # Voids 1 ABP, PAP, CO, CI - Last Documented Arterial Blood Pressure 106/50 - Exam PHYSICAL EXAMINATION: GENERAL: Alert and oriented 3, sitting up in bed, no acute distress HEENT: Normocephalic. Neck is supple. Pupils reactive. MMM. Neck: Supple,no JVD CHEST EXAMINATION: Nonlabored. Symmetrical expansion. Lung almanza clear to auscultation. CARDIAC: Normal S1, S2 with no gallops. No murmurs ABDOMEN: Soft. Bowel sounds present. Nontender. No organomegaly. Extremities: Left hip dressing clean dry and intact ,minimal edema. No clubbing or cyanosis. No calf tenderness, positive DP pulse. Neurological: Cranial nerves II through XII grossly intact. No focal deficits noted Skin: Warm and dry, No rash. - Labs CBC & Chem 7: 12/20/21 03:20 12/20/21 03:20 Labs: Abnormal Lab Results - Last 24 Hours (Table) 12/19/21 12/19/21 12/20/21 Range/Units 16:46 20:12 03:20 RBC 2.57 L (3.80-5.40) m/uL Hgb 7.6 L (11.4-16.0) gm/dL Hct 24.6 L (34.0-46.0) % Glucose (74-99) mg/dL POC Glucose (mg/dL) 129 H 148 H (70-110) mg/dL Calcium (8.4-10.2) mg/dL AST (14-36) U/L ALT (4-34) U/L Total Protein (6.3-8.2) g/dL Albumin (3.5-5.0) g/dL 12/20/21 12/20/21 Range/Units 03:20 11:18 RBC (3.80-5.40) m/uL Hgb (11.4-16.0) gm/dL Hct (34.0-46.0) % Glucose 70 L (74-99) mg/dL POC Glucose (mg/dL) 161 H (70-110) mg/dL Calcium 8.1 L (8.4-10.2) mg/dL AST 102 H (14-36) U/L ALT 38 H (4-34) U/L Total Protein 4.8 L (6.3-8.2) g/dL Albumin 2.7 L (3.5-5.0) g/dL Assessment and Plan Assessment: Acute ST elevated CO status post emergent cardiac catheterization with stent placement to circumflex and dilation of LAD. Acute hypoxic respiratory failure secondary to acute CO and hypotension, status post mechanical ventilation. Acute cardiogenic shock, status post pressor support. Acute CHF with systolic dysfunction with pulmonary edema secondary to #1, resolved Status post left total hip arthroplasty, status post fall off of chair Osteoarthritis Coronary disease history of stent placement to LAD in 2007 Hypertension Hyperlipidemia Diabetes type 2 insulin-dependent with hyperglycemia, hemoglobin A1c 7.2 Plan: Continue on current medication regime ,monitoring and symptomatic treatment. PT OT. Pain management. Dual antiplatelet therapy as per cardiology. Patient is cleared by all consults for transfer out of ICU, awaiting bed in telemetry unit. Aggressive pulmonary toileting with incentive spirometer reinforced. The impression and plan of care has been dictated as directed. : I performed a history and examination of this patient, discussed the same with the dictator. I agree with the dictator's note ,documented as a scribe. Any additional findings or plans will be noted.
[2021-12-20 16:37] LABS: Glucose,Whole Blood 204 mg/dL (70-110)
[2021-12-20 20:14] LABS: Glucose,Whole Blood 138 mg/dL (70-110)
[2021-12-20] MEDS: INSULIN DETEMIR (LEVEMIR) 100 UNIT/ML SYR SQ SCH (20:22)
[2021-12-20] MEDS: SENNOSIDES-DOCUSATE SODIUM 1 EACH TAB PO SCH (20:23)
[2021-12-20] MEDS: ATORVASTATIN 80 MG TAB PO SCH (20:23)
[2021-12-21] MEDS: LACTATED RINGERS 1,000 ML IV SCH (05:03)
[2021-12-21] MEDS: LEVOTHYROXINE 112 MCG TAB PO SCH (06:06)
[2021-12-21 06:55] LABS: Glucose,Whole Blood 76 mg/dL (70-110)
[2021-12-21] MEDS: INSULIN ASPART (NovoLOG) 100 UNIT/ML VIAL SQ SCH ×4 (06:58→12:20)
--- NOTE | 2021-12-21 07:22 | P.PN ---
Subjective Progress Note Date: 12/21/21 Principal diagnosis: Acute coronary syndrome The patient is a 66-year-old female patient with CAD and prior stenting as well as hypertension and dyslipidemia who was admitted to the hospital for elective left anterior total hip arthroplasty and after that she developed chest dis comfort and she was diagnosed with acute coronary syndrome. She underwent a heart catheterization and stenting of the ramus intermedius. The patient was seen this morning. She is asymptomatic from the cardiovascular standpoint of view and she is also hemodynamically stable was marginally low blood pressure. She is on dual antiplatelet therapy along with high intensity statin as well as beta cayden. Her systolic pressure remains above 90 mmHg. Her echo showed cardiomyopathy was EF around 35% and without being state and going to a small dose of VESTA inhibitor with lisinopril at 2.5 mg by mouth daily to the current medical regimen. From a cardiac standpoint of view, the patient potentially can be discharged home in the next 12-24 hours. Objective - Vital Signs Vital signs: Vital Signs Temp 98.9 F 12/20/21 23:53 Pulse 78 12/21/21 04:00 Resp 18 12/21/21 04:00 BP 101/52 12/21/21 04:00 Pulse Ox 99 12/21/21 04:00 FiO2 21 12/18/21 20:17 Intake & Output 12/20/21 12/21/21 12/21/21 18:59 06:59 18:59 Output Total 1200 200 Balance -1200 -200 Weight 85.3 kg Output: Urine 1200 200 Other: Voiding Method Bedpan Bedside Commode # Voids 1 # Bowel Movements 1 ABP, PAP, CO, CI - Last Documented Arterial Blood Pressure 106/50 - Constitutional General appearance: Present: no acute distress - Respiratory Respiratory: bilateral: diminished - Cardiovascular Rhythm: regular - Labs CBC & Chem 7: 12/20/21 03:20 12/20/21 03:20 Labs: Abnormal Lab Results - Last 24 Hours (Table) 12/20/21 12/20/21 12/20/21 Range/Units 11:18 16:35 20:13 POC Glucose (mg/dL) 161 H 204 H 138 H (70-110) mg/dL Assessment and Plan Assessment: Assessment #[address] elevation MS was PCI of the LCx #2 status post angioplasty of the LAD as well #3 hypertension #4 dyslipidemia #5 ischemic cardiomyopathy Plan #1 continue the current medical regimen #2 add small dose of VESTA inhibitor with lisinopril #3 the patient can be discharged home in the next 12-24
[2021-12-21] MEDS: METOPROLOL TARTRATE 12.5 MG TAB PO SCH (08:22)
[2021-12-21] MEDS: CLOPIDOGREL 75 MG TAB PO SCH (08:22)
[2021-12-21] MEDS: DOXYCYCLINE 100 MG CAP PO SCH (08:22)
[2021-12-21] MEDS: ALPRAZolam 0.5 MG TAB PO PRN (08:22)
[2021-12-21] MEDS: HEPARIN SODIUM,PORCINE/PF 5,000 UNIT/0.5 ML SYRINGE SQ SCH (08:22)
[2021-12-21] MEDS: ASPIRIN 81 MG PO SCH (08:22)
[2021-12-21] MEDS: SODIUM CHLORIDE 0.9% 1,000 ML IV SCH (08:22)
[2021-12-21 08:26] VITALS: TEMP 98.5
--- NOTE | 2021-12-21 08:59 | P.PN ---
Subjective Progress Note Date: 12/21/21 This patient is a 66-year-old female who is status-post left direct anterior total hip arthroplasty on 12/17/21. She developed acute coronary syndrome post- operatively and underwent heart catheterization with stent placement. Patient is examined bedside this morning. She states the pain in her left hip is well-controlled. She states she was up walking in the hallways with a walker yesterday with physical therapy. She is feeling anxious but otherwise doing well. Patient has been cleared by all services for transfer out of the ICU, though she is currently waiting for a bed. Objective - Vital Signs Vital signs: Vital Signs Temp 98.5 F 12/21/21 08:00 Pulse 86 12/21/21 08:00 Resp 22 12/21/21 08:00 BP 109/58 12/21/21 08:00 Pulse Ox 94 L 12/21/21 08:00 FiO2 21 12/18/21 20:17 Intake & Output 12/20/21 12/21/21 12/21/21 18:59 06:59 18:59 Output Total 1200 200 Balance -1200 -200 Weight 85.3 kg Output: Urine 1200 200 Other: Voiding Method Bedpan Bedside Commode # Voids 1 # Bowel Movements 1 ABP, PAP, CO, CI - Last Documented Arterial Blood Pressure 106/50 - Exam On examination, the patient is lying in bed in no current distress. She is alert and oriented 3. Dr. Jo is also bedside. On inspection of the left hip, there is a clean, dry, intact Opsite dressing in place. No bleeding or drainage through the dressing. There is mild swelling of the thigh, the thigh soft and compressible. Motor and sensory function is intact of the left lower extremity. Femoral nerve function intact. Dorsalis pedis pulse easily palpable, the left lower extremity is warm and well-perfused. Calf is soft and nontender to palpation. - Labs CBC & Chem 7: 12/20/21 03:20 12/20/21 03:20 Labs: Abnormal Lab Results - Last 24 Hours (Table) 12/20/21 12/20/21 12/20/21 Range/Units 11:18 16:35 20:13 POC Glucose (mg/dL) 161 H 204 H 138 H (70-110) mg/dL Assessment and Plan Assessment: Status-post left direct anterior total hip arthroplasty on 12/17/21 Acute coronary syndrome post-operatively with heart catheterization and stent placement Plan: - Patient may continue to weight bear to tolerance on left lower extremity with a walker. She may continue to mobilize as tolerated with physical therapy. - Keep operative dressing in place until follow-up in the office. - Pain management as needed. - Anti-coagulation per internal medicine, cardiology. - Anticipate discharge home when cleared by all medical specialities. She should follow-up in the office with Dr. Sanchez two weeks post-operatively.
--- NOTE | 2021-12-21 10:45 | P.PN ---
Subjective Progress Note Date: 12/21/21 This is a 66-year-old female with known history of coronary artery disease, previous PCI in 2007. Known history of hypertension, dyslipidemia, type 1 diabetes, hypothyroidism, patient had elective anterior hip arthroplasty yesterday, and while in recovery the patient had sudden severe midsternal left-sided chest pain. Patient was also noted to be diaphoretic, EKG revealed ST elevation in anterolateral leads, patient was urgently taken to the cardiac catheterization lab, underwent cardiac catheterization. Underwent PTCA and stenting of totally occluded circumflex marginal and this was stented using a drug eluting stent and PTCA of previously stented LAD. Patient developed hypotension and she required intubation she had to be placed on relatively high dose of norepinephrine and dopamine and she was transferred to the ICU asked to see her on consultation I was notified about this patient from Dr. Archer and I called the ICU, adjusted her ventilator settings based on her ABG, reviewed chest x-ray that showed evidence of pulmonary edema, and I recommended Lasix to be given. Chest x-ray today showed improvement, I evaluated the patient in the ICU today, and recommending stopping propofol, I also recommended weaning parameters once she is completely off propofol and awake. Weaning parameters were done shortly after my evaluation, and the patient had excellent weaning parameters, she was on pressure support of 8 and CPAP, went ahead and extubated the patient uneventfully. Reevaluated today on 12/19/21, patient remains in the ICU, she was extubated yesterday uneventfully, and she is doing great. She is now on room air, O2 saturation is in the high 90s. Hemoglobin is down to 8.1, patient is doing well from the pulmonary perspective and I believe she could be transferred out of the ICU to a cardiac floor if cleared by cardiology. Patient is relatively asymptomatic today, no chest pain, no shortness of breath. Her WBC count is 11 hemoglobin is 8.1 patient is status post left hip replacement. Electrodes are normal renal profile is normal, chest x-ray showed no evidence of pulmonary edema. Progress note dated 12/20/2021. This is a patient was admitted on December 17, for left hip replacement. Unfortunately, she ended up with an ST segment elevation myocardial infarction. She went to the catheterization laboratory, and had a dilatation of the left anterior descending coronary artery, stent placement in the circumflex coronary artery. She was intubated on the , and extubated on December 18Monday. Currently, she is on room air. She's not receiving any IV fluids. She is resting comfortably in the intensive care unit, room 259. White count 7, hemoglobin 7.6, hematocrit 24.6, and platelet count 253,000. Sodium 137, potassium 4, chlorides 105, CO2 26, BUN 17, creatinine 0.77. Albumin is 2.7. Today's chest x-ray is normal. The patient is seen today 12/21/2021 in follow-up in the incentive care unit. She is currently sitting up in a chair at the bedside. Awake and alert in no acute distress. She denies any chest pain, palpitations lightheadedness or dizziness. No significant left hip pain. She is maintaining good O2 saturations in the 90s on room air. No IV fluids. Blood glucose 76. Objective - Vital Signs Vital signs: Vital Signs Temp 98.5 F 12/21/21 08:00 Pulse 86 12/21/21 08:00 Resp 22 12/21/21 08:00 BP 109/58 12/21/21 08:00 Pulse Ox 94 L 12/21/21 08:00 FiO2 21 12/18/21 20:17 Intake & Output 12/20/21 12/21/21 12/21/21 18:59 06:59 18:59 Output Total 1200 200 Balance -1200 -200 Weight 85.3 kg Output: Urine 1200 200 Other: Voiding Method Bedpan Bedside Commode Bedside Commode # Voids 1 # Bowel Movements 1 ABP, PAP, CO, CI - Last Documented Arterial Blood Pressure 106/50 - Exam GENERAL EXAM: Alert, very pleasant 66-year-old female patient, up in a chair at the bedside, on room air, comfortable in no apparent distress. HEAD: Normocephalic. EYES: Normal reaction of pupils, equal size. NOSE: Clear with pink turbinates. THROAT: No erythema or exudates. NECK: No masses, no JVD. CHEST: No chest wall deformity. LUNGS: Equal air entry with no crackles, wheeze, rhonchi or dullness. CVS: S1 and S2 normal with no audible murmur, regular rhythm. ABDOMEN: No hepatosplenomegaly, normal bowel sounds, no guarding or rigidity. SPINE: No scoliosis or deformity SKIN: No rashes CENTRAL NERVOUS SYSTEM: No focal deficits, tone is normal in all 4 extremities. EXTREMITIES: Left hip surgical site clean and dry. There is no peripheral edema. No clubbing, no cyanosis. Peripheral pulses are intact. - Labs CBC & Chem 7: 12/20/21 03:20 12/20/21 03:20 Labs: Abnormal Lab Results - Last 24 Hours (Table) 12/20/21 12/20/21 12/20/21 Range/Units 11:18 16:35 20:13 POC Glucose (mg/dL) 161 H 204 H 138 H (70-110) mg/dL Assessment and Plan Assessment: Acute ST segment elevation myocardial infarction, status post emergent cardiac catheterization and stenting of the circumflex coronary artery, and dilatation of the LAD. Acute hypoxemic respiratory failure, secondary to acute myocardial infarction, requiring intubation and mechanical ventilation, status post extubation on December 18. Postop day #3, status post left hip replacement. Acute pulmonary edema secondary to acute myocardial infarction, resolved. History of hyperlipidemia. History of hypertension. History of hypothyroidism. Plan: The patient was seen and evaluated Currently stable and on room air Plan is for home with home care We will see as needed I have personally seen and examined the patient, performed the documentation and the assessment and plan as written. Number of minutes spent on the visit: 10.
[2021-12-21 11:53] LABS: Glucose,Whole Blood 141 mg/dL (70-110)
[2021-12-21 12:23] VITALS: BP 106/67; PULSE 85; RESP 18
--- NOTE | 2021-12-21 14:29 | P.DS ---
Providers Date of admission: 12/17/21 15:33 Expected date of discharge: 12/21/21 Attending physician: Vamsi Jo Consults: 12/17/21 13:30 Consult Physician Routine Consulting Provider: Vamsi Jo Consult Reason/Comments: medical management Do you want consulting provider notified?: Yes 12/17/21 15:15 Consult Physician Routine Consulting Provider: Seema Archer Consult Reason/Comments: STEMI post op Do you want consulting provider notified?: Already Contacted 12/17/21 17:33 Consult Physician Routine Consulting Provider: Minh Sanchez Consult Reason/Comments: known Do you want consulting provider notified?: Already Contacted 12/17/21 17:46 Consult Physician Urgent Consulting Provider: Alfonso Fatima Consult Reason/Comments: ICU management Do you want consulting provider notified?: Already Contacted Primary care physician: Vamsi Jo [facility] Course: Final Diagnoses: Acute ST elevated FL status post emergent cardiac catheterization with stent placement to circumflex and dilation of LAD. Acute hypoxic respiratory failure secondary to acute FL and hypotension, status post mechanical ventilation. Acute cardiogenic shock, status post pressor support. Acute CHF with systolic dysfunction with pulmonary edema secondary to #1, resolved Status post left total hip arthroplasty, status post fall off of chair Osteoarthritis Coronary disease history of stent placement to LAD in 2007 Hypertension Hyperlipidemia Diabetes type 2 insulin-dependent with hyperglycemia, hemoglobin A1c 7.2 Hospital course:This is a pleasant 66-year-old female with known history of CAD with prior stent in 2007, hypertension, diabetes mellitus type 2, osteoarthritis, status post left total hip arthroplasty. Patient states she was adjusting lites on her tiki bar, standing on a chair and had fallen off. Continued to walk on it for approximately 5 days before she sought further evaluation. Status post left direct anterior total hip arthroplasty, sustained an acute inferior lateral STEMI. Status post emergent cardiac catheterization with stenting of circumflex marginal branch and LAD dilated.Maintained on dual antiplatelet therapy, statin. Denies chest pain, palpitations or shortness of breath. Maintaining O2 sats of high 90s on room air. Chest x-ray reporting no acute cardiopulmonary process. Ambulating, pain controlled. Afebrile, normal WBC. Renal function stable. Blood sugars controlled. Significant clinical improvement. Denies chest pain, palpitations or shortness of breath. Ambulating, tolerating exertion well. Denies lightheadedness, di zziness or focal deficits. Surgical pain controlled. Passing flatus. Cleared by both cardiology, orthopedic surgery for discharge. Patient will be discharged home today with home care ,in a stable condition with guarded prognosis. The impression and plan of care has been dictated as directed. : I performed a history and examination of this patient, discussed the same with the dictator. I agree with the dictator's note ,documented as a scribe. Any additional findings or plans will be noted. Patient Condition at Discharge: Stable Plan - Discharge Summary Discharge Rx Participant: Yes New Discharge Prescriptions: New Aspirin 81 mg PO BID 30 Days #60 tab Docusate [Colace] 100 mg PO BID #60 capsule Doxycycline Monohydrate [Monodox] 100 mg PO BID 14 Days #28 cap Atorvastatin [Lipitor] 80 mg PO HS #30 tab Metoprolol Tartrate [Lopressor] 12.5 mg PO BID #60 tab Sennosides-Docusate Sodium [Senokot-S] 2 each PO HS tab HYDROcodone/APAP 7.5-325MG [[place] 7.5-325] 1 - 2 tab PO Q6HR PRN 7 Days #32 tab PRN Reason: Pain Omeprazole 40 mg PO DAILY 30 Days #30 cap lisinopriL [Zestril] 2.5 mg PO DAILY #30 tab Continue Levothyroxine Sodium [Synthroid] 112 mcg PO DAILY Insulin Glargine [Lantus Vial] 15 unit SQ HS Clopidogrel Bisulfate [Plavix] 75 mg PO DAILY Cholecalciferol (Vitamin D3) [Vitamin D3] 2,000 unit PO DAILY INSULIN LISPRO (HumaLOG) [humaLOG] 4 units SQ BID HYDROcodone/APAP 10-325MG [[place] 10-325] 1 tab PO Q6H PRN #15 tab PRN Reason: Pain Biotin [Biotin Disolve] 5,000 mcg PO DAILY Aspirin EC [Ecotrin Low Dose] 81 mg PO DAILY INSULIN LISPRO (humaLOG) [humaLOG] 6 unit SQ AC-SUPPER Cyanocobalamin (Vitamin B-12) [Vitamin B-12] 2,500 mcg PO DAILY Discontinued hydroCHLOROthiazide 25 mg PO DAILY Losartan Potassium [Cozaar] 50 mg PO DAILY Ibuprofen [Motrin] 800 mg PO Q8H PRN PRN Reason: Pain Pravastatin Sodium [Pravachol] 40 mg PO HS Discharge Medication List Cholecalciferol (Vitamin D3) [Vitamin D3] 2,000 unit PO DAILY 10/02/16 [History] Clopidogrel Bisulfate [Plavix] 75 mg PO DAILY 10/02/16 [History] HYDROcodone/APAP 10-325MG [[place] 10-325] 1 tab PO Q6H PRN #15 tab 10/02/16 [Rx] INSULIN LISPRO (HumaLOG) [humaLOG] 4 units SQ BID 10/02/16 [History] Insulin Glargine [Lantus Vial] 15 unit SQ HS 10/02/16 [History] Levothyroxine Sodium [Synthroid] 112 mcg PO DAILY 10/02/16 [History] Aspirin EC [Ecotrin Low Dose] 81 mg PO DAILY 12/15/21 [History] Biotin [Biotin Disolve] 5,000 mcg PO DAILY 12/15/21 [History] Cyanocobalamin (Vitamin B-12) [Vitamin B-12] 2,500 mcg PO DAILY 12/15/21 [History] INSULIN LISPRO (humaLOG) [humaLOG] 6 unit SQ AC-SUPPER 12/15/21 [History] Aspirin 81 mg PO BID 30 Days #60 tab 12/17/21 [Rx] Docusate [Colace] 100 mg PO BID #60 capsule 12/17/21 [Rx] HYDROcodone/APAP 7.5-325MG [[place] 7.5-325] 1 - 2 tab PO Q6HR PRN 7 Days #32 tab 12/17/21 [Rx] Omeprazole 40 mg PO DAILY 30 Days #30 cap 12/17/21 [Rx] Doxycycline Monohydrate [Monodox] 100 mg PO BID 14 Days #28 cap 12/19/21 [Rx] Atorvastatin [Lipitor] 80 mg PO HS #30 tab 12/21/21 [Rx] Metoprolol Tartrate [Lopressor] 12.5 mg PO BID #60 tab 12/21/21 [Rx] Sennosides-Docusate Sodium [Senokot-S] 2 each PO HS tab 12/21/21 [Rx] lisinopriL [Zestril] 2.5 mg PO DAILY #30 tab 12/21/21 [Rx] Follow up Appointment(s)/Referral(s): Seema Archer MD [STAFF PHYSICIAN] - 12/30/21 3:30 pm Vamsi Jo DO [Primary Care Provider] - 12/24/21 2:30 pm Minh Sanchez MD [Medical Doctor] - 12/30/21 9:30 am (This is a New appointment date. Any questions please call the office.) Patient Instructions/Handouts: Heart Attack (GEN), Left Heart Catheterization (DC) Activity/Diet/Wound Care/Special Instructions: Weight bear to tolerance on operative extremity with a walker. Keep operative dressing intact until follow-up appointment in the office. Call the office if dressing becomes saturated or falls off. May shower over dressing. Take pain medication as prescribed. Take aspirin 81mg BID x 1 week. You may resume Plavix one week post-op. After you resume Plavix, continue taking aspirin 81mg once a day for 3 more weeks. Follow-up in the office in two weeks with Dr. Sanchez. Call the office with any questions or concerns, Discharge Disposition: HOME WITH HOME HEALTH SERVICES
== END 2021-12-21 13:54 | disposition home health service (06) | DRG 246 ==
LOC: OR 08:37 → 2SICU 15:33
PROVIDERS: ADMIT Family Medicine; ATTEND Family Medicine
PROC: 3E033XZ Introduction of Vasopressor into Peripheral Vein, Percutaneous Approach (ICD-10-PCS; 2021-12-17)
PROC: 0BH17EZ Insertion of Endotracheal Airway into Trachea, Via Natural or Artificial Opening (ICD-10-PCS; 2021-12-17)
PROC: 0D9670Z Drainage of Stomach with Drainage Device, Via Natural or Artificial Opening (ICD-10-PCS; 2021-12-17)
PROC: 4A023N7 Measurement of Cardiac Sampling and Pressure, Left Heart, Percutaneous Approach (ICD-10-PCS; principal; 2021-12-17 10:35)
PROC: 027034Z Dilation of Coronary Artery, One Artery with Drug-eluting Intraluminal Device, Percutaneous Approach (ICD-10-PCS; principal; 2021-12-17 10:35)
PROC: B2111ZZ Fluoroscopy of Multiple Coronary Arteries using Low Osmolar Contrast (ICD-10-PCS; principal; 2021-12-17 10:35)
PROC: 02703ZZ Dilation of Coronary Artery, One Artery, Percutaneous Approach (ICD-10-PCS; principal; 2021-12-17 10:35)
PROC: 5A1935Z Respiratory Ventilation, Less than 24 Consecutive Hours (ICD-10-PCS; 2021-12-17 15:11)
PROC: 0SRB019 Replacement of Left Hip Joint with Metal Synthetic Substitute, Cemented, Open Approach (ICD-10-PCS; 2021-12-17 15:11)
DX: I21.19 ST elevation (STEMI) myocardial infarction involving other coronary artery of inferior wall (principal); I50.21 Acute systolic (congestive) heart failure; J96.01 Acute respiratory failure with hypoxia; R57.0 Cardiogenic shock; M87.9 Osteonecrosis, unspecified; I11.0 Hypertensive heart disease with heart failure; E10.65 Type 1 diabetes mellitus with hyperglycemia; Z79.4 Long term (current) use of insulin; M89.752 Major osseous defect, left pelvic region and thigh; M16.12 Unilateral primary osteoarthritis, left hip; S72.092D Other fracture of head and neck of left femur, subsequent encounter for closed fracture with routine healing; S32.492D Other specified fracture of left acetabulum, subsequent encounter for fracture with routine healing; S76.012D Strain of muscle, fascia and tendon of left hip, subsequent encounter; M81.0 Age-related osteoporosis without current pathological fracture; I25.10 Atherosclerotic heart disease of native coronary artery without angina pectoris; I25.5 Ischemic cardiomyopathy; E78.00 Pure hypercholesterolemia, unspecified; E03.9 Hypothyroidism, unspecified; E78.5 Hyperlipidemia, unspecified; M25.552 Pain in left hip; Z95.5 Presence of coronary angioplasty implant and graft; Z79.82 Long term (current) use of aspirin; Z79.02 Long term (current) use of antithrombotics/antiplatelets; Z79.890 Hormone replacement therapy; Z79.899 Other long term (current) drug therapy; Z88.5 Allergy status to narcotic agent; W07.XXXA Fall from chair, initial encounter
CPT/HCPCS: 71045; 73501; 80048; 80053; 82330; 82805; 83036; 83735; 84484; 85025; 85027; 86850; 86900; 86901; 86920; 88305; 88311; 92920; 93306; 93458; 94002; 94003

== ENCOUNTER → 2022-02-14 | Outpatient (CLI) | payer MEDICARE | END | disposition home or self-care (01) | LOC: LABWHC1 11:06 | PROVIDERS: ATTEND Internal Medicine Interventional Cardiology | DX: R53.83 Other fatigue (principal) | CPT/HCPCS: 36415; 84439; 84443 ==

== ENCOUNTER → 2022-04-22 | Outpatient (CLI) | payer MEDICARE ==
[2022-04-22 18:51] LABS: T4, Free (Free Thyroxine) 1.69 ng/dL (0.800-1.800)
== END | disposition home or self-care (01) ==
LOC: LABWHC1 10:39
PROVIDERS: ATTEND Internal Medicine Interventional Cardiology
DX: I25.10 Atherosclerotic heart disease of native coronary artery without angina pectoris (principal); E10.9 Type 1 diabetes mellitus without complications
CPT/HCPCS: 36415; 84439; 84443

== ENCOUNTER 2023-01-25 12:47 | Emergency (ER) | payer MEDICARE ==
[2023-01-25 13:06] VITALS: RESP 18
[2023-01-25] MEDS ORDERED: SODIUM CHLORIDE 0.9% 1,000 ML IV STA (13:07)
[2023-01-25 13:44] LABS: Basophils % (A) 0 %; Eosinophils # (A) 0.1 k/uL (0-0.7); Eosinophils % (A) 2 %; HCT 40.6 % (34.0-46.0); HGB 13.6 gm/dL (11.4-16.0); Lymphocytes # (A) 0.8 k/uL (1.0-4.8); Lymphocytes % (A) 11 %; MCHC 33.6 g/dL (31.0-37.0); MCV 92.2 fL (80.0-100.0); Mean Platelet Volume 8.7; Monocytes # (A) 0.4 k/uL (0-1.0); Monocytes % (A) 6 %; Neutrophils # (A) 5.8 k/uL (1.3-7.7); Neutrophils % (A) 80 %; Platelet Count 179 k/uL (150-450); RDW 12.9 % (11.5-15.5); WBC 7.3 k/uL (3.8-10.6)
--- NOTE | 2023-01-25 13:49 | ED ---
General Adult HPI - General Chief complaint: Nausea/Vomiting/Diarrhea Stated complaint: vomiting Source: EMS Mode of arrival: EMS Limitations: no limitations - History of Present Illness Initial comments: 77-year-old female with past medical history significant for diabetes presents to the ED with a chief complaint of nausea or vomiting. Patient's was an room 10 with her mother (who is currently being taken care of in the ED) on her face all of a sudden felt flushed and she had 1 episode of nausea and vomiting. No chest pain or shortness of breath. No lightheadedness or dizziness. As of now, reports nausea improved after vomiting. No abdominal pain. No urinary sympto ms. No changes in bowel habits. No other complaints. - Related Data Home Medications Medication Instructions Recorded Confirmed Cholecalciferol (Vitamin D3) 2,000 unit PO DAILY 10/02/16 12/17/21 [Vitamin D3] Clopidogrel Bisulfate [Plavix] 75 mg PO DAILY 10/02/16 12/17/21 INSULIN LISPRO (HumaLOG) [humaLOG] 4 units SQ BID 10/02/16 12/17/21 Insulin Glargine [Lantus Vial] 15 unit SQ HS 10/02/16 12/17/21 Levothyroxine Sodium [Synthroid] 112 mcg PO DAILY 10/02/16 12/17/21 Aspirin EC [Ecotrin Low Dose] 81 mg PO DAILY 12/15/21 12/17/21 Biotin [Biotin Disolve] 5,000 mcg PO DAILY 12/15/21 12/17/21 Cyanocobalamin (Vitamin B-12) 2,500 mcg PO DAILY 12/15/21 12/17/21 [Vitamin B-12] INSULIN LISPRO (humaLOG) [humaLOG] 6 unit SQ AC-SUPPER 12/15/21 12/17/21 Previous Rx's Medication Instructions Recorded HYDROcodone/APAP 10-325MG [[place] 1 tab PO Q6H PRN #15 tab 10/02/16 10-325] Aspirin 81 mg PO BID 30 Days #60 tab 12/17/21 Docusate [Colace] 100 mg PO BID #60 capsule 12/17/21 HYDROcodone/APAP 7.5-325MG [[place] 1 - 2 tab PO Q6HR PRN 7 Days #32 12/17/21 7.5-325] tab Omeprazole 40 mg PO DAILY 30 Days #30 cap 12/17/21 Doxycycline Monohydrate [Monodox] 100 mg PO BID 14 Days #28 cap 12/19/21 Atorvastatin [Lipitor] 80 mg PO HS #30 tab 12/21/21 Metoprolol Tartrate [Lopressor] 12.5 mg PO BID #60 tab 12/21/21 Sennosides-Docusate Sodium 2 each PO HS tab 12/21/21 [Senokot-S] lisinopriL [Zestril] 2.5 mg PO DAILY #30 tab 12/21/21 Allergies Allergy/AdvReac Type Severity Reaction Status Date / Time codeine Allergy Swelling Verified 12/17/21 09:13 Review of Systems ROS Statement: Those systems with pertinent positive or pertinent negative responses have been documented in the HPI. ROS Other: All systems not noted in ROS Statement are negative. Past Medical History Past Medical History: Coronary Artery Disease (CAD), Diabetes Mellitus History of Any Multi-Drug Resistant Organisms: None Reported Past Surgical History: Heart Catheterization With Stent Additional Past Surgical History / Comment(s): fatty tumors removed x 2 Past Anesthesia/Blood Transfusion Reactions: Motion Sickness, Postoperative Nausea & Vomiting (PONV) Date of Last Stent Placement:: 2007 Past Psychological History: No Psychological Hx Reported Smoking Status: Never smoker Past Alcohol Use History: Occasional Past Drug Use History: None Reported - Past Family History Father Family Medical History: Cancer General Exam Limitations: no limitations Course Vital Signs 01/25/23 12:52 Pulse Rate 62 Respiratory 18 Rate Blood Pressure 126/56 O2 Sat by Pulse 100 Oximetry Medical Decision Making - Medical Decision Making Was pt. sent in by a medical professional or institution (, PA, DEMENTIA PROGRAM DIRECTOR, urgent care, hospital, or longterm...) When possible be specific @ -No Did you speak to anyone other than the patient for history (EMS, parent, family, police, friend...)? What history was obtained from this source @ -No Did you review nursing and triage notes (agree or disagree)? Why? @ -I reviewed and agree with nursing and triage notes Were old charts reviewed (outside hosp., previous admission, EMS record, old EKG, old radiological studies, urgent care reports/EKG's, longterm records)? Report findings @ -No old charts were reviewed Differential Diagnosis (chest pain, altered mental status, abdominal pain women, abdominal pain men, vaginal bleeding, weakness, fever, dyspnea, syncope, headache, dizziness, GI bleed, back pain, seizure, CVA, palpatations, mental health, musculoskeletal)? @ Differential Abdominal Pain Women: Appendicitis, Cholecystitis, diverticulosis, ischemic bowel, pancreatitis, hepatitis, UTI, gastroenteritis, AAA, incarcerated hernia, bowel obstruction, constipation, inflammatory bowel, hepatitis, peptic ulcer disease, splenic infarction, perforated viscus, vulvitis, ovarian torsion, PID, kidney stone, placenta abruption, this is not meant to be an all-inclusive list EKG interpreted by me (3pts min.). @ -As above X-rays interpreted by me (1pt min.). @ -None done CT interpreted by me (1pt min.). @ -None done U/S interpreted by me (1pt. min.). @ -None done What testing was considered but not performed or refused? (CT, X-rays, U/S, l abs)? Why? @ -None What meds were considered but not given or refused? Why? @ -None Did you discuss the management of the patient with other professionals (professionals i.e. , PA, DEMENTIA PROGRAM DIRECTOR, lab, RT, psych nurse, social services technician, sorter lumber straightener, teacher, armored vehicle officer, returned case inspector)? Give summary @ -No Was smoking cessation discussed for >3mins.? @ -No Was critical care preformed (if so, how long)? @ -No Were there social determinants of health that impacted care today? How? (Homelessness, low income, unemployed, alcoholism, drug addiction, transportation, low edu. Level, literacy, decrease access to med. care, long-term, rehab)? @ -No Was there de-escalation of care discussed even if they declined (Discuss DNR or withdrawal of care, Hospice)? DNR status @ -No What co-morbidities impacted this encounter? (DM, HTN, Smoking, COPD, CAD, Cance r, CVA, ARF, Chemo, Hep., AIDS, mental health diagnosis, sleep apnea, morbid obesity)? @ -Diabetes Was patient admitted / discharged? Hospital course, mention meds given and route, prescriptions, significant lab abnormalities, going to OR and other pertinent info. @ -Discharge 67 -year-old female seen in the ED. Initially seeing her mother however while in the room with her mother had acute onset of facial flushing nausea and one episode of vomiting. Following episode of vomiting reports improvement of nausea and only notes fatigue. Cephid shows COVID (+), otherwise unremarkable. Her laboratory studies largely unremarkable. At this time, patient reports improvement of symptoms. Patient stable for discharge home. Discussed return precautions patient who verbalizes agreement. Undiagnosed new problem with uncertain prognosis? @ -No Drug Therapy requiring intensive monitoring for toxicity (Heparin, Nitro, Insulin, Cardizem)? @ -No Were any procedures done? @ -No Diagnosis/symptom? @ -COVID Acute, or Chronic, or Acute on Chronic? @ -Acute Uncomplicated (without systemic symptoms) or Complicated (systemic symptoms)? @ -Uncomplicated Side effects of treatment? @ -No Exacerbation, Progression, or Severe Exacerbation? @ -No Poses a threat to life or bodily function? How? (Chest pain, USA, CA, pneumonia, PE, COPD, DKA, ARF, appy, cholecystitis, CVA, Diverticulitis, Homicidal, Suicidal, threat to staff... and all critical care pts) @ -No - Lab Data Result diagrams: 01/25/23 13:13 01/25/23 13:13 Lab Results 01/25/23 01/25/23 01/25/23 Range/Units 13:13 13:13 13:24 WBC 7.3 (3.8-10.6) k/uL RBC 4.40 (3.80-5.40) m/uL Hgb 13.6 (11.4-16.0) gm/dL Hct 40.6 (34.0-46.0) % MCV 92.2 (80.0-100.0) fL MCH 31.0 (25.0-35.0) pg MCHC 33.6 (31.0-37.0) g/dL RDW 12.9 (11.5-15.5) % Plt Count 179 (150-450) k/uL MPV 8.7 Neutrophils % 80 % Lymphocytes % 11 % Monocytes % 6 % Eosinophils % 2 % Basophils % 0 % Neutrophils # 5.8 (1.3-7.7) k/uL Lymphocytes # 0.8 L (1.0-4.8) k/uL Monocytes # 0.4 (0-1.0) k/uL Eosinophils # 0.1 (0-0.7) k/uL Basophils # 0.0 (0-0.2) k/uL Sodium 137 (137-145) mmol/L Potassium 3.5 (3.5-5.1) mmol/L Chloride 100 (98-107) mmol/L Carbon Dioxide 26 (22-30) mmol/L Anion Gap 11 mmol/L BUN 22 H (7-17) mg/dL Creatinine 0.64 (0.52-1.04) mg/dL Est GFR (CKD-EPI)AfAm >90 (>60 ml/min/1.73 sqM) Est GFR (CKD-EPI)NonAf >90 (>60 ml/min/1.73 sqM) Glucose 90 (74-99) mg/dL Calcium 10.0 (8.4-10.2) mg/dL Total Bilirubin 1.1 (0.2-1.3) mg/dL AST 30 (14-36) U/L ALT 31 (4-34) U/L Alkaline Phosphatase 110 (38-126) U/L Total Protein 7.8 (6.3-8.2) g/dL Albumin 4.6 (3.5-5.0) g/dL Amylase 66 (30-110) U/L Lipase 55 (23-300) U/L Influenza Type A (PCR) Not Detected (Not Detectd) Influenza Type B (PCR) Not Detected (Not Detectd) RSV (PCR) Not Detected (Not Detectd) SARS-CoV-2 (PCR) Detected A (Not Detectd) - EKG Data EKG Comments: EKG shows a sinus rate cardiac [address] or T-wave changes. MO 146, QRS 78, QT/QTc 413/409. Disposition Clinical Impression: Nausea and vomiting Disposition: HOME SELF-CARE Instructions (If sedation given, give patient instructions): Acute Nausea and Vomiting (ED) Additional Instructions: Please return to the Emergency Department if symptoms worsen or any other concerns. Is patient prescribed a controlled substance at d/c from ED?: No Referrals: Vamsi Jo DO [Primary Care Provider] - 1-2 days Time of Disposition: 14:56
[2023-01-25 14:04] LABS: ALT 31 U/L (4-34); AST 30 U/L (14-36); African American GFR (CKD) >90 (>60 ml/min/1.73 sqM); Albumin 4.6 g/dL (3.5-5.0); Alkaline Phosphatase 110 U/L (38-126); Amylase 66 U/L (30-110); Anion Gap 11 mmol/L; Blood Urea Nitrogen 22 mg/dL (7-17); Carbon Dioxide 26 mmol/L (22-30); Chloride 100 mmol/L (98-107); Glucose 90 mg/dL (74-99); Lipase 55 U/L (23-300); Non-African American GFR(CKD) >90 (>60 ml/min/1.73 sqM); Potassium 3.5 mmol/L (3.5-5.1); Sodium 137 mmol/L (137-145); Total Bilirubin 1.1 mg/dL (0.2-1.3); Total Protein 7.8 g/dL (6.3-8.2)
[2023-01-25] MEDS ORDERED: ONDANSETRON 4 MG ODT STARTER PACK 2 TAB BTL PO STA (14:57)
[2023-01-25 15:43] VITALS: BP 139/56; PULSE 87
== END 2023-01-25 15:34 | disposition home or self-care (01) ==
LOC: EC 12:47
DX: U07.1 COVID-19 (principal); R11.2 Nausea with vomiting, unspecified; R00.1 Bradycardia, unspecified; E11.9 Type 2 diabetes mellitus without complications; I25.10 Atherosclerotic heart disease of native coronary artery without angina pectoris; Z79.4 Long term (current) use of insulin; Z79.82 Long term (current) use of aspirin; Z88.5 Allergy status to narcotic agent
CPT/HCPCS: 99284; 96360; 36415; 80053; 82150; 83690; 85025; 87636; S0119